=== PATIENT | male | born 1930 | race Caucasian/White ===

== ENCOUNTER 2019-02-24 10:46 | Outpatient (CLI) | payer MEDICARE | END 2019-02-24 10:47 | disposition home or self-care (01) | LOC: DTY/OP 10:46 | PROVIDERS: ATTEND Family Medicine | DX: E11.9 Type 2 diabetes mellitus without complications (principal) | CPT/HCPCS: 97802 ==

== ENCOUNTER 2019-06-07 16:20 | Inpatient (IN) | payer MEDICARE ==
--- NOTE | 2019-06-07 18:41 | PDOC.FPRHP ---
- History of Present Illness Chief Complaint: sob History of Present Illness: 88 y/o M with a pmhx of a fib, htn, cad s/p X3 vessel cabg, aortic stenosis s/p mechanical valve replacement, presenting to [facility] via transfer from [facility] for further treatment of a R sided post obstructive pneumonia 2/ 2 lung mass. Pt states he became very sob, having difficulty with exertion and lying flat about 6 days ago. He was instructed to come to the plumbing assembler for evaluation, which led to an echo, and cxr, leading to admission. Chest CT found a dense consolidation R upper lobe with mass-like fullness in R hilar region. worrisome for mass. post-obstructive volume loss versus pneumonitis. Aneurysmal dilation of descending aorta. Pt was transferred to [place] for higher level of care for pulmonary to perform bronchoscopy on Sunday. Pt denies current CP, and states his SOB has improved slightly since admission. - Allergies/Adverse Reactions Allergies Allergy/AdvReac Type Severity Reaction Status Date / Time No Known Allergies Allergy Verified 06/07/19 16:32 - Home Medications Medication Instructions Recorded Confirmed Type Amlodipine [Norvasc] 1 tab PO DAILY 06/07/19 06/07/19 History Aspirin [Briana Chewable Aspirin] 1 tab PO DAILY 06/07/19 06/07/19 History Furosemide [Lasix] 1 tab PO BID 06/07/19 06/07/19 History Levothyroxine Sodium 1 tab PO DAILY 06/07/19 06/07/19 History Lisinopril 1 tab PO DAILY 06/07/19 06/07/19 History Loratadine [Claritin] 10 mg PO DAILY 06/07/19 06/07/19 History Metoprolol Succinate [Toprol XL] 1 tab PO DAILY 06/07/19 06/07/19 History Omeprazole 1 tab PO DAILY 06/07/19 06/07/19 History Warfarin Sodium 1 tab PO DAILY 06/07/19 06/07/19 History - History PMHx: a fib, aortic stenosis s/p mechanical valve replacement on chronic warfarin therapy, htn, CAD s/p X3 vessel cabg. Hypothyroidism, previous [place], HLD , COPD PSHx: 2002 X3 vessel CABG, Aortic valve replacement, small bowel resection, aortic aneurysm stenting, cataract removal, appendectomy FHx: father: cad, [place]. Brother: heart disease Social: Smoked 2.5 ppd form many years. Quit in 1984. Quit drinking etoh heavily in 1972. Denies any illicit drug use. - Review of Systems General: denies: fever/chills, weight/appetite/sleep changes ENT: denies: nasal congestion Respiratory: reports: cough, shortness of breath, exercise intolerance Cardiovascular: reports: paroxysmal nocturnal dyspnea, orthopnea. denies: chest pain, palpitation Gastrointestinal: denies: nausea, vomiting, diarrhea, abdominal pain Skin: denies: rashes, lesions Musculoskeletal: denies: pain, swelling Neurological: denies: syncope, seizure - Vital signs BP: 136/76 HR: 97 RR: 20 Tmax: 97.7 Pox: 94% on 2L NC Wt: 182 kg - Physical Exam Constitutional: NAD, awake, alert and oriented, well developed HEENT: normocephalic and atraumatic, PERRLA, EOMI, conjunctiva clear, no scleral icterus, grossly normal vision, grossly normal hearing, MMM Neck: supple, FROM, trachea midline Chest: no-tender to palpation, no lesions Heart: pulses present -Heart: irregularly irregular heart rate and rhythm systolic murmur Lungs: no respiratory distress, no retractions -Lungs: diminished breath sounds over right mid lung to base, with crackles good air movement in L lung. Abdomen: soft, non-tender, bowel sounds present Musculoskeletal: normal structure, normal tone, ROM grossly normal Neurological: no focal deficit, normal sensation Skin: no rash/lesions, good turgor, capillary refill <2 seconds Heme/Lymphatic: no unusual bruising or bleeding, no purpura, no petechia Psychiatric: normal mood and affect, good judgment and insight, intact recent and remote memory FMR H&P: Results - Radiology Interpretation CT scan - chest Status: report reviewed by me (dense consolidation R upper lobe with mass-like fullness in R hilar region. worrisome for mass. post-obstructive volume loss versus pneumonitis. Aneurysmal dilation of descending aorta.) FMR H&P: A/P - Problem List (1) Pneumonia Current Visit: Yes Status: Acute Code(s): J18.9 - PNEUMONIA, UNSPECIFIED ORGANISM Qualifiers: Lung location: middle lobe of lung Comment: post obstructive pneumonia 2/2 R middle lobe lung mass (2) Mass of middle lobe of right lung Current Visit: Yes Status: Acute Code(s): R91.8 - OTHER NONSPECIFIC ABNORMAL FINDING OF LUNG FIELD (3) COPD (chronic obstructive pulmonary disease) Current Visit: Yes Status: Acute (4) A-fib Current Visit: Yes Status: Acute Code(s): I48.91 - UNSPECIFIED ATRIAL FIBRILLATION (5) Hx of myocardial infarction Current Visit: Yes Status: Acute Code(s): I25.2 - OLD MYOCARDIAL INFARCTION (6) HTN (hypertension) Current Visit: Yes Status: Acute Code(s): I10 - ESSENTIAL (PRIMARY) HYPERTENSION (7) HLD (hyperlipidemia) Current Visit: Yes Status: Acute Code(s): E78.5 - HYPERLIPIDEMIA, UNSPECIFIED (8) Hypothyroidism Current Visit: Yes Status: Acute Code(s): E03.9 - HYPOTHYROIDISM, UNSPECIFIED (9) On warfarin at home Current Visit: Yes Status: Acute Code(s): Z79.01 - SCHOOL TRAFFIC SUPERVISOR (CURRENT) USE OF ANTICOAGULANTS (10) CKD (chronic kidney disease), stage III Current Visit: Yes Status: Acute Code(s): N18.3 - CHRONIC KIDNEY DISEASE, STAGE 3 (MODERATE) - Plan 88 y/o M admitted for further pulmonary care for post obstructive pneumonia 2/2 R middle lobe lung mass 1. Post obstructive pneumonia 2/2 R middle lobe lung mass - Pul transferred care to [facility] for bronchoscopy scheduled Sunday. - Pt's warfarin held and placed on heparin drip for procedure and capabilities to be turned off pre-procedure. - continue rocephin and azithro 2. a fib - pt will be on heparin drip until post procedure - continue home meds 3. Aortic stenosis s/p Mechanical valve replacement - continue heparin drip 4. HTN - continue home medications 5. HLD - continue home medications 6. Hypothyroidism - continue levothyroxine 7. CAD s/p X3 vessel cabg - continue home medications 8. COPD - continue home meds - duonebs Q4H prn code status: full code diet: HH dvt ppx: heparin drip dispo: stable, inpatient for pulmonary to bronch and treat post-obstructive pneumonia FMR H&P: Upper Level - Pertinent history 88 yo M with hx of CAD and a 40+ pack year smoking hx here as a transfer from the [facility]. He was initially admitted for a post obstructive PNA secondary to likely R sided mass. He has been treated with rocephin IV daily there and has had minimal O2 requirement. He was seen by pulm who opted to transfer here for a planned bronc on Sunday. PMHx CAD Aortic valve stenosis s/p repair Afib HTN Hypothyroid GERD Surgical Hx CABG x3 Aortic valve replacement, mechanical Social Hx 40+ pack year smoking, No etoh or drugs - Pertinent findings See internal consultant note for full ROS, PE, vitals, and labs ROS General denies fever or chills CV Denies CP, palpitations or chest pressure Resp Complains of SOB and cough GI Denies n/v/d/c or abdominal pain denies increased frequency or dysuria Neuro denies numbness or weakness PE General A&O x4, NAD HEENT NCAT CV irregularly irregular, 2/6 systolic Resp Rhonchi on R, no distress Abd non tender, no distension, normal BS Extremities no edema, equal pedal pulses Neuro CN II-XII intact - Plan Date/Time: 06/07/191839 I, Tom La, DO, have evaluated this patient and agree with findings/plan as outlined by internal consultant resident. Pertinent changes/additions are listed here. 1.Post obstructive PNA - Given hx it seems likely that this is related to a mass. -Admit to medical and consult pulm for bronch -Continue IV abx 2.Afib - Rate controlled -Continue heparin, trend INR, hold warfarin for bronch 3.Hypothyroid -Home meds 4.HTN -Home meds See internal consultant portion for management of other chronic illness PPx heparin Diet HH, NPO at midnight Sunday night Code Full Dispo: pt is stable and in good condition now, but likely poor fpc prognosis. Would expect hospitalization of greater than 48 hours Addendum - Attending - Attending Attestation Date/Time: 06/07/191840 I personally evaluated the patient and discussed the management with Dr. Son/ Abhinav I agree with the History, Examination, Assessment and Plan documented above with any addition or exceptions noted below. 88 yo male accepted in transfer from was admitted with consolidated PNA found with Mass on CT and transferred for planned bronchoscopy per Dr Brito Sunday. Patient s/p mechanical AVR and 3V CABG [address] Steiner. Patient transitioned off coumadin to heparin drip for the planned procedure. Have accepted in transfer and Pulmonary to consult.
[2019-06-07] MEDS ORDERED: Heparin 10,000 UNITS/ 10 ML VIAL SLOW IVP SCH (20:15)
[2019-06-07 20:54] LABS: Hemoglobin 11.1 g/dL (14.0-18.0); Platelet Count 274 thou/uL (130-400)
[2019-06-07] MEDS: cefTRIAXone\\ROCEPHIN 2 GM in Sodium Chloride 0.9% 100 ML IVPB SCH (21:16)
[2019-06-07] MEDS: Furosemide 40 MG TAB PO SCH (21:16)
[2019-06-07] MEDS: Heparin 25,000 units/D5W 500 ML IVPB SCH (21:27)
[2019-06-07] MEDS ORDERED: Azithromycin 250 MG in Sodium Chloride 0.9% 250 ML 250 ML IVPB SCH (22:00)
[2019-06-08 05:19] LABS: #Basophils 0.1 thou/uL (0.0-0.2); #Eosinphils 0.4 thou/uL (0.0-0.7); #Lymphocytes 2.3 thou/uL (1.20-3.40); #Neutrophils 5.3 thou/uL (1.40-6.50); %Basophils 0.8 % (0.0-1.0); %Eosinophils 4.7 % (0.0-10.0); %Lymphocytes 25.1 % (21.0-51.0); %Neutrophils 58.4 % (42.0-75.0); Hemoglobin 10.9 g/dL (14.0-18.0); Mean Corpuscular HGB CONC 29.1 g/dL (32.0-36.0); Mean Corpuscular Hemoglobin 21.3 pg (27.0-31.0); Mean Corpuscular Volume 73.2 fL (78.0-98.0); Mean Platelet Volume 9.2 fL (7.4-10.4); Platelet Count 273 thou/uL (130-400); RBC Distribution Width 15.9 % (11.5-14.5); Red Blood Cell (RBC) Count 5.12 mill/uL (4.70-6.10)
[2019-06-08] MEDS: Levothyroxine Sodium 75 MCG TAB PO SCH (05:42)
[2019-06-08 05:43] LABS: ALT (SGPT) 25 U/L (8-55); AST (SGOT) 32 U/L (5-34); Albumin 3.4 g/dL (3.4-4.8); Alkaline Phosphatase 144 U/L (40-110); Anion Gap 15 mmol/L (10-20); BUN (Urea Nitrogen) 12 mg/dL (8.4-25.7); Bilirubin, Total 0.4 mg/dL (0.2-1.2); Calc. Creatinine Clearance 67 mL/min (70-130); Calcium 8.7 mg/dL (7.8-10.44); Carbon Dioxide 25 mmol/L (23-31); Chloride 103 mmol/L (98-107); Estimated GFR-MDRD 74; Glucose 116 mg/dL (83-110); Potassium 3.9 mmol/L (3.5-5.1); Protein, Total 7.4 g/dL (5.8-8.1); Sodium 139 mmol/L (136-145)
--- NOTE | 2019-06-08 06:03 | PDOC.FM ---
- Subjective Subjective: no acute overnight events Pt c/o mild abdominal pain. Denies N/V/D. Denies CP. - Objective MAR Reviewed: Yes Vital Signs & Weight: Vital Signs (12 hours) Temp Pulse Resp BP Pulse Ox 06/08/19 04:14 98.3 F 114 H 20 158/71 H 92 L 06/08/19 01:53 95 24 H 98 06/07/19 23:33 97.9 F 98 20 142/68 H 95 06/07/19 20:20 93 L 06/07/19 19:37 97.7 F 100 18 153/78 H 93 L Weight Weight 85.275 kg I&O: 06/06/19 06/07/19 06/08/19 06:59 06:59 06:59 Intake Total 740 Output Total 750 Balance -10 Result Diagrams: 06/08/19 04:26 06/08/19 04:26 Phys Exam - Physical Examination Constitutional: NAD HEENT: moist MMs, sclera anicteric Neck: no nodes, supple Respiratory: wheezing present Cardiovascular: irregular systolic murmur Gastrointestinal: soft, non-tender, no distention, positive bowel sounds Musculoskeletal: no edema, pulses present Neurological: non-focal, moves all 4 limbs Psychiatric: normal affect, A&O x 3 Skin: no rash, cap refill <2 seconds Dx/Plan (1) Pneumonia Code(s): J18.9 - PNEUMONIA, UNSPECIFIED ORGANISM Status: Acute Qualifiers: Lung location: middle lobe of lung (2) Mass of middle lobe of right lung Code(s): R91.8 - OTHER NONSPECIFIC ABNORMAL FINDING OF LUNG FIELD Status: Acute (3) COPD (chronic obstructive pulmonary disease) Status: Acute (4) A-fib Code(s): I48.91 - UNSPECIFIED ATRIAL FIBRILLATION Status: Acute (5) Hx of myocardial infarction Code(s): I25.2 - OLD MYOCARDIAL INFARCTION Status: Acute (6) HTN (hypertension) Code(s): I10 - ESSENTIAL (PRIMARY) HYPERTENSION Status: Acute (7) HLD (hyperlipidemia) Code(s): E78.5 - HYPERLIPIDEMIA, UNSPECIFIED Status: Acute (8) Hypothyroidism Code(s): E03.9 - HYPOTHYROIDISM, UNSPECIFIED Status: Acute (9) On warfarin at home Code(s): Z79.01 - PENITENTIARY (CURRENT) USE OF ANTICOAGULANTS Status: Acute (10) CKD (chronic kidney disease), stage III Code(s): N18.3 - CHRONIC KIDNEY DISEASE, STAGE 3 (MODERATE) Status: Acute - Plan Plan: 88 y/o M admitted for further pulmonary care for post obstructive pneumonia 2/2 R middle lobe lung mass 1. Post obstructive pneumonia 2/2 R middle lobe lung mass - Pul transferred care to [facility] for bronchoscopy scheduled Sunday. - Pt's warfarin held and placed on heparin drip for procedure and capabilities to be turned off pre-procedure. - continue rocephin and azithro 2. a fib - pt will be on heparin drip until post procedure - continue home meds 3. Aortic stenosis s/p Mechanical valve replacement - continue heparin drip 4. HTN - continue home medications 5. HLD - continue home medications 6. Hypothyroidism - continue levothyroxine 7. CAD s/p X3 vessel cabg - continue home medications 8. COPD - continue home meds - duonebs Q4H prn code status: full code diet: HH dvt ppx: heparin drip dispo: stable, inpatient for pulmonary to bronch and treat post-obstructive pneumonia Addendum - Attending - Attending Attestation Date/Time: 06/08/19 [id number] I personally evaluated the patient and discussed the management with Dr. Munoz I agree with the History, Examination, Assessment and Plan documented above with any addition or exceptions noted below. Patient medications from transfer resumed for anticipated bronchoscopy tomorrow. Patient aware of care plan. Patient in no respiratory distress.
[2019-06-08] MEDS ORDERED: Non-Formulary Item 1 EACH (Omeprazole [Omeprazole] 1 TAB) PO SCH (09:00)
[2019-06-08] MEDS: Furosemide 40 MG TAB PO SCH ×2 (09:04→21:00)
[2019-06-08] MEDS: Amlodipine 10 MG TAB PO SCH (09:04)
[2019-06-08] MEDS: Aspirin Chewable 81 MG TAB PO SCH (09:04)
[2019-06-08] MEDS: Lisinopril 10 MG TAB PO SCH (09:04)
[2019-06-08] MEDS: Loratadine 10 MG TAB PO SCH (09:04)
--- NOTE | 2019-06-08 11:14 | CON ---
DATE OF CONSULTATION: HISTORY OF PRESENT ILLNESS: Cristo Lancaster is an 88-year-old gentleman, who was admitted to the [facility] with diagnosis of cough, congestion, yellow sputum, fever, and chills. X-ray and CAT scan show a right middle lung mass. He was then transferred here for ongoing evaluation and further the treatment and higher level of care. This morning, he is coughing up gross amount of pus, but denies any chest pain, chills, or sweats. PAST MEDICAL HISTORY: Otherwise, pertinent for COPD, atrial fibrillation, prosthetic valve, hypertension, hyperlipidemia, hypothyroidism, renal failure. HOME MEDICATIONS: Including; 1. Loratadine 10. 2. Omeprazole 20. 3. Synthroid 0.075. 4. Aspirin 81. 5. Atorvastatin 40. 6. Coumadin 3 mg. 7. Toprol-XL 50. PREVIOUS SURGERIES: Abdominal aortic aneurysm surgery, small bowel resection, appendix, cataract, aortic valve surgery. SOCIAL AND FAMILY HISTORY: Otherwise, unremarkable. Former smoker. ALLERGIES: NONE. REVIEW OF SYSTEMS: Otherwise negative. PHYSICAL EXAMINATION: VITAL SIGNS: Blood pressure 144/79, temperature 98, pulse 120, saturations 92% on 2 L. CHEST: Decreased breath sounds. No wheezing. CARDIAC: Normal S1 and S2. No gallops. ABDOMEN: No mass. LABORATORY DATA: White count 9,000, hemoglobin and hematocrit are 10 and 37, and platelet count is 273. Lytes are normal. IMPRESSION AND PLAN: 1. Right lung mass, rule out bronchogenic carcinoma. 2. Chronic obstructive pulmonary disease, atrial fibrillation, prosthetic valve. His Coumadin was withheld. He is on IV heparin, IV antibiotics, IV steroids, neb treatments. Dr. Brito has scheduled a bronchoscopy with biopsy in the next several days. Consultation note 70 minutes, 50% direct patient care. Job ID: [id number]
[2019-06-08] MEDS ORDERED: Lidocaine 4% PF 5 ML AMP NEB SCH (12:15)
[2019-06-08] MEDS: Sodium Chloride 0.9% 1,000 ML IV SCH (13:34)
[2019-06-08] MEDS: methylPREDNISolone Sod Succ 40 MG VIAL IVP SCH ×3 (13:34→23:41)
[2019-06-08] MEDS: cefTRIAXone\\ROCEPHIN 2 GM in Sodium Chloride 0.9% 100 ML IVPB SCH (20:43)
[2019-06-08] MEDS: Heparin 25,000 units/D5W 500 ML IVPB SCH (20:45)
[2019-06-08] MEDS: Atorvastatin Calcium 40 MG TAB PO SCH (21:00)
[2019-06-09 05:23] LABS: #Lymphocytes 0.7 thou/uL (1.20-3.40); #Monocytes 0.1 thou/uL (0.11-0.59); #Neutrophils 7.9 thou/uL (1.40-6.50); %Eosinophils 0.1 % (0.0-10.0); %Lymphocytes 7.9 % (21.0-51.0); %Monocytes 1.4 % (0.0-10.0); %Neutrophils 90.6 % (42.0-75.0); Hemoglobin 11.6 g/dL (14.0-18.0); Mean Corpuscular HGB CONC 29.8 g/dL (32.0-36.0); Mean Corpuscular Hemoglobin 21.5 pg (27.0-31.0); Mean Corpuscular Volume 72.3 fL (78.0-98.0); Mean Platelet Volume 9.4 fL (7.4-10.4); Platelet Count 291 thou/uL (130-400); White Blood Cell (WBC) Count 8.7 thou/uL (4.8-10.8)
[2019-06-09] MEDS: methylPREDNISolone Sod Succ 40 MG VIAL IVP SCH ×3 (05:33→18:45)
[2019-06-09 05:34] LABS: ALT (SGPT) 26 U/L (8-55); AST (SGOT) 26 U/L (5-34); Albumin 3.6 g/dL (3.4-4.8); Alkaline Phosphatase 143 U/L (40-110); Anion Gap 15 mmol/L (10-20); BUN (Urea Nitrogen) 12 mg/dL (8.4-25.7); Bilirubin, Total 0.5 mg/dL (0.2-1.2); Calc. Creatinine Clearance 61 mL/min (70-130); Calcium 9.4 mg/dL (7.8-10.44); Carbon Dioxide 24 mmol/L (23-31); Chloride 102 mmol/L (98-107); Estimated GFR-MDRD 68; Globulin 4.2 g/dL (2.4-3.5); Glucose 183 mg/dL (83-110); Potassium 3.8 mmol/L (3.5-5.1); Protein, Total 7.8 g/dL (5.8-8.1); Sodium 137 mmol/L (136-145)
[2019-06-09] MEDS: Levothyroxine Sodium 75 MCG TAB PO SCH (06:46)
[2019-06-09 07:49] LABS: INR-International Normal Ratio 1.3; Prothrombin Time 16.4 SEC (12.0-14.7)
[2019-06-09 07:50] LABS: PTT 34.3 SEC (22.9-36.1)
--- NOTE | 2019-06-09 09:22 | PDOC.FM ---
- Subjective Subjective: Pt doing well this morning. States productive cough still present with thick, dark brown mucus. Eagerly awaiting bronch this AM. Denies any fever/chills, CP, n/v. SOB stable. Ambulated yesterday well. Tolerating PO well yesterday, now NPO for bronch. Eager for discharge. - Objective MAR Reviewed: Yes Vital Signs & Weight: Vital Signs (12 hours) Temp Pulse Resp BP Pulse Ox 06/09/19 07:46 94 20 94 L 06/09/19 07:27 93 L 06/09/19 07:22 97.8 F 135 H 18 124/70 93 L 06/09/19 04:17 97.7 F 119 H 16 151/67 H 92 L 06/09/19 01:31 93 L 06/08/19 23:50 97.7 F 113 H 16 143/67 H 93 L 06/08/19 21:30 94 L Weight Weight 85.275 kg I&O: 06/08/19 06/09/19 06/10/19 06:59 06:59 06:59 Intake Total 740 1198 Output Total 750 Balance -10 1198 Result Diagrams: 06/09/19 04:51 06/09/19 04:51 Phys Exam - Physical Examination Constitutional: NAD (resting comfortably in bed, in good spirits) HEENT: moist MMs Neck: no nodes, supple Respiratory: no wheezing, no rales, no rhonchi, clear to auscultation bilateral Decreased aeration in RUL Cardiovascular: RRR, no significant murmur, no rub Gastrointestinal: soft, non-tender, no distention, positive bowel sounds Manuel-wraps in place for LE edema, improved per pt Neurological: non-focal Psychiatric: normal affect, A&O x 3 Dx/Plan (1) COPD (chronic obstructive pulmonary disease) Status: Acute (2) Mass of middle lobe of right lung Code(s): R91.8 - OTHER NONSPECIFIC ABNORMAL FINDING OF LUNG FIELD Status: Acute - Plan Plan: 88 y/o M admitted as transfer from [facility] for further pulmonary care for post obstructive pneumonia 2/2 R middle lobe lung mass #Post obstructive pneumonia 2/2 R middle lobe lung mass - Initially admitted to [facility] in [place], transferred for pulm care - Pulm consulted, apprec recs and assistance. Plan for bronch this AM. - cont Rocephin and levo, as well as methlypred #Afib - pt will be on heparin drip, will heparin window for procedure - will plan to restart warfarin after procedure - continue home meds #Aortic stenosis s/p Mechanical valve replacement - per above #HTN - continue home medications #HLD - continue home medications #Hypothyroidism - continue levothyroxine #CAD s/p X3 vessel CABG - continue home medications #COPD - continue home meds - duonebs Q4H prn - no home O2, will wean as tolerated #Anemia - Hb 11.6, MCV 72.3, RDW 16 - anemia chronic disease vs iron def vs malignancy - no s/s of acute blood loss - iron studies pending code: full diet: NPO for bronch IVF: HS @ 50cc/hr dvt ppx: heparin drip dispo: stable, inpatient for pulmonary to bronch and treat post-obstructive pneumonia. Dispo pending bronch results and pulm recs. Addendum - Attending - Attending Attestation Date/Time: 06/09/19 9928 I personally evaluated the patient and discussed the management with Dr. Kline I agree with the History, Examination, Assessment and Plan documented above with any addition or exceptions noted below. s/p bronch. Now in Afib with RVR on CCB drip. Continue to monitor. Adjust dosing as needed to keep HR < 110. Patient reports improved breathing with breathing treatments. Unable to get appropriate sample during bronch. Will have CT surg perform mediastinal bx in AM. Delvin
[2019-06-09] MEDS ORDERED: Lidocaine 2% Jelly 5 ML TUBE ONE (09:23)
[2019-06-09] MEDS ORDERED: Lidocaine 1% (PF) 30 ML VIAL ONE (09:23)
[2019-06-09] MEDS ORDERED: Ketamine 50 MG/ML (10ML VIAL) ONE (09:56)
[2019-06-09] MEDS ORDERED: Diltiazem HCl 125 MG, Admixture Fee 1 EACH in Sodium Chloride 0.9% 100 ML IVPB SCH (11:15)
[2019-06-09] MEDS: Furosemide 40 MG TAB PO SCH ×2 (12:00→20:47)
[2019-06-09] MEDS: Sodium Chloride 0.9% 1,000 ML IV SCH (12:00)
[2019-06-09] MEDS: Amlodipine 10 MG TAB PO SCH (12:00)
[2019-06-09] MEDS: Aspirin Chewable 81 MG TAB PO SCH (12:00)
[2019-06-09] MEDS: Lisinopril 10 MG TAB PO SCH (12:00)
[2019-06-09] MEDS: Loratadine 10 MG TAB PO SCH (12:01)
[2019-06-09] MEDS ORDERED: methylPREDNISolone Acetate 40 mg/ml Vial ONE (13:33)
[2019-06-09] MEDS ORDERED: Lidocaine 1% PF 5 ML VIAL ONE (14:01)
[2019-06-09] MEDS ORDERED: PROPOFOL 200 MG/20 ML VIAL ONE (14:01)
[2019-06-09] MEDS ORDERED: Rocuronium Bromide 10 MG/ML (10ML VIAL) ONE (14:01)
[2019-06-09] MEDS ORDERED: Esmolol 100 MG/10 ML VIAL ONE (14:01)
[2019-06-09] MEDS ORDERED: Ondansetron PF 4 MG/2 ML Vial ONE (14:01)
[2019-06-09] MEDS ORDERED: Succinylcholine Chloride 20 MG/ML 10 ml SYRINGE FS ONE (14:01)
[2019-06-09] MEDS ORDERED: Metoprolol Tartrate 5 MG/5 ML VIAL IVP SCH (17:45)
[2019-06-09] MEDS: Atorvastatin Calcium 40 MG TAB PO SCH (20:47)
[2019-06-09] MEDS: cefTRIAXone\\ROCEPHIN 2 GM in Sodium Chloride 0.9% 100 ML IVPB SCH (20:54)
--- NOTE | 2019-06-09 22:04 | CON ---
DATE OF CONSULTATION: HISTORY OF PRESENT ILLNESS: Cristo Lancaster is a pleasant year-old white male, who is admitted for further evaluation of shortness of breath and a lung mass. In October 2002, he was evaluated by Dr. Lucero and underwent aortic valve replacement with a #21 Top-[employer]at [employer] valve and CABG x3 with HART to the proximal LAD and a saphenous vein graft to the distal right coronary artery and saphenous vein graft to the distal obtuse marginal. He has been followed by Dr. Crow apparently since that time. He then went to see Dr. Crow on June 04 for evaluation of worsening dyspnea and orthopnea. Echocardiogram according to Dr. Crow's note revealed normal left ventricular systolic function and normal aortic valve function. Chest x-ray revealed right lobe consolidation. CT scan revealed right middle lobe mass/consolidation consistent with possible pneumonia or neoplasm. He has chronic atrial fibrillation and his Coumadin was stopped and he was bridged with intravenous heparin. Then today, he underwent bronchoscopy and had more significant rapid ventricular response with heart rates up to 150 per minute. He has been placed on a Cardizem drip and transferred to telemetry. He complains of baseline shortness of breath, but no chest discomfort. PAST MEDICAL HISTORY: Aortic stenosis and coronary artery disease, hypertension, chronic atrial fibrillation, hyperlipidemia, COPD, hypothyroidism. OPERATIONS: Mechanical aortic valve replacement, CABG x3 in October 2002, small bowel resection, aortic aneurysm stenting, cataract removal and appendectomy. SOCIAL HISTORY: He smoked 2-1/2 packs per day for approximately 40 years, but quit in 1984. He apparently was a heavy drinker until 1972 when he quit. FAMILY HISTORY: Father had myocardial infarction. REVIEW OF SYSTEMS: A 10-point review of systems is otherwise unremarkable. HOME MEDICATIONS: 1. Amlodipine 10 mg daily. 2. Aspirin 81 daily. 3. Atorvastatin 40 at bedtime. 4. Clonidine 0.1 b.i.d. 5. Furosemide 40 b.i.d. 6. Levothyroxine 75 mcg daily. 7. Lisinopril 10 mg daily. 8. Loratadine 10 mg at bedtime. 9. Metoprolol 50 XL q.a.m. 10. Omeprazole 20 daily. 11. Warfarin. ALLERGIES: NONE. PHYSICAL EXAMINATION: VITAL SIGNS: Blood pressure 173/76, pulse of 122 and irregularly irregular. HEENT: PERRL. NECK: Supple. CHEST: Reveals diminished breath sounds bilaterally. CARDIOVASCULAR: Examination S1 was normal. There is a prosthetic S2. There is a 2/6 systolic murmur. ABDOMEN: Normal bowel sounds without tenderness. EXTREMITIES: Revealed no clubbing, cyanosis, or edema. NEUROLOGIC: Grossly intact. SKIN: Warm and dry. LABORATORY DATA: EKG revealed atrial fibrillation with rapid ventricular response of 109 per minute, left axis deviation and inferior infarction. Hemoglobin 11.6, hematocrit 39.1, white count 8700, platelets 291,000. INR 1.3. Sodium 137, potassium 3.8, chloride 102, carbon dioxide 24, BUN 12, creatinine 1.04. IMPRESSION: 1. 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 2. Pneumonia. 3. Atrial fibrillation with fast ventricular response, chronic atrial fibrillation. 4. Status post aortic valve replacement with mechanical valve and CABG x3 in 2002. 5. Hypertension. 6. Hyperlipidemia. 7. Former smoker. 8. Positive family history. PLAN: The patient's blood pressure has been somewhat elevated at times. He will be given Lopressor 5 mg IV now and his dose will be increased to 100 mg q.a.m. Digoxin may certainly need to be added for better rate control, if this does not control his tachycardia. Heparin and Coumadin should be restarted, if it is felt safe by the clerk secretary after his bronchoscopy. Job ID: [id number]
[2019-06-10] MEDS: methylPREDNISolone Sod Succ 40 MG VIAL IVP SCH ×4 (01:06→17:01)
[2019-06-10] MEDS: Sodium Chloride 0.9% 1,000 ML IV SCH (05:56)
[2019-06-10] MEDS: Levothyroxine Sodium 75 MCG TAB PO SCH (05:56)
[2019-06-10] MEDS ORDERED: Fentanyl 100 MCG/2 ML VIAL ONE (06:33)
[2019-06-10] MEDS ORDERED: Ondansetron HCl/PF 4 MG/2 ML Vial IVP PRN (08:03)
--- NOTE | 2019-06-10 08:32 | PDOC.FM ---
- Subjective Subjective: Seen in PACU after surgery. Did not tolerate extubation well and currently on BiPap. Opens eyes spontaneously, nonverbal at this time. Otherwise tolerated procedure itself well without complications. Had continued Afib with RVR, up titrated cardizem gtt. - Objective MAR Reviewed: Yes Vital Signs & Weight: Vital Signs (12 hours) Temp Pulse Resp BP Pulse Ox 06/10/19 03:33 97.9 F 116 H 22 H 135/66 93 L 06/10/19 01:30 86 16 96 06/09/19 21:49 96 Weight Weight 85.275 kg I&O: 06/09/19 06/10/19 06/11/19 06:59 06:59 06:59 Intake Total 1198 135 300 Output Total 200 400 Balance 1198 -65 -100 Result Diagrams: 06/09/19 04:51 06/09/19 04:51 Phys Exam - Physical Examination Air hunger, on BiPap, opens eyes spontaenously. BiPap in place Neck: supple incision c/d/i Respiratory: no wheezing, no rales, no rhonchi, clear to auscultation bilateral Good aeration throughout Cardiovascular: no significant murmur, no rub Irregularly irregular, tachy Gastrointestinal: soft, non-tender, no distention, positive bowel sounds Musculoskeletal: no edema, pulses present Deviation from normal: opens eyes spontaneously, nods nead to questions, nonverbal on bipap Dx/Plan (1) COPD (chronic obstructive pulmonary disease) Status: Acute (2) Mass of middle lobe of right lung Code(s): R91.8 - OTHER NONSPECIFIC ABNORMAL FINDING OF LUNG FIELD Status: Acute (3) A-fib Code(s): I48.91 - UNSPECIFIED ATRIAL FIBRILLATION Status: Acute Qualifiers: Atrial fibrillation type: longstanding persistent Qualified Code(s): I48.11 - Longstanding persistent atrial fibrillation - Plan Plan: 88 y/o M admitted as transfer from [facility] for further pulmonary care for post obstructive pneumonia 2/2 R middle lobe lung mass #Post obstructive pneumonia 2/2 R middle lobe lung mass - Initially admitted to [facility] in [place], transferred for pulm care - Pulm consulted, apprec recs and assistance. Bronch on 06/09 unable to obtain biopsy specimen, rec mediastinoscopy, apprec recs and assistance - CV surg, Dr Steiner, consulted for mediastinoscopy with biopsy of mass this AM, apprec recs and assistance - cont Rocephin and levo, as well as methlypred #Afib with RVR - known h/o, had run of asxs afib with RVR, started on cardizem gtt - HR in low 100s overnight, RVR with HR 110-140 post-op - Cards, Dr Berger, consulted, rec IV lopressor with increased Toprol dose and possible addition of dig, and to transition back to warfarin when appropriate, apprec recs - Post-op increased to 15 Cardizem, will monitor - will restart heparin post procedure and transition to warfarin when CV surg clears - cont other home meds #Aortic stenosis s/p Mechanical valve replacement - per above #HTN - continue home medications #HLD - continue home medications #Hypothyroidism - continue levothyroxine #CAD s/p X3 vessel CABG - continue home medications #COPD - continue home meds - duonebs Q4H prn - no home O2, will wean as tolerated #Anemia of chronic disease vs malignancy - Hb 11.6, MCV 72.3, RDW 16, ferritin and TIBC WNL - no s/s of acute blood loss, will monitor code: full diet: NPO for mediastinoscopy IVF: NS @ 50cc/hr dvt ppx: SCDs to transition to heparin post-procedure Dispo: Mediastinoscopy today. On Bipap post-extubation. Will monitor in PACU. Will add dig if appropriate and transition from heparin to warfarin when appropriate. Pending Cards, Pulm, and CV surg recs. Addendum - Attending - Attending Attestation Date/Time: 06/10/19 5880 I personally evaluated the patient and discussed the management with Dr. Kline I agree with the History, Examination, Assessment and Plan documented above with any addition or exceptions noted below. Examined after mediastinoscopy in PACU. Rate 100s to 110s. Will attempt to convert to PO meds for rate control today. Restart anticoagulation per CV surg recs. Await path report. Likely needs 2-3 more days in hospital.
[2019-06-10] MEDS ORDERED: Albuterol Sulfate HFA (OR ONLY) ONE (08:47)
[2019-06-10] MEDS ORDERED: SUGAMMADEX SODIUM 200 MG/2 ML VIAL ONE (08:55)
[2019-06-10] MEDS ORDERED: Furosemide 20 MG/2 ML VIAL ONE (09:17)
[2019-06-10] MEDS ORDERED: Ondansetron PF 4 MG/2 ML Vial ONE (09:44)
[2019-06-10] MEDS ORDERED: Glycopyrrolate 0.2 MG/ML 5 ML SYRINGE ONE (09:44)
[2019-06-10] MEDS ORDERED: PROPOFOL 200 MG/20 ML VIAL ONE (09:44)
[2019-06-10] MEDS ORDERED: Rocuronium Bromide 10 MG/ML (10ML VIAL) ONE (09:44)
[2019-06-10] MEDS ORDERED: Dexamethasone 20 MG/5 ML VIAL ONE (09:44)
[2019-06-10] MEDS ORDERED: Lidocaine 1% PF 5 ML VIAL ONE (09:44)
[2019-06-10] MEDS ORDERED: Ketorolac Tromethamine 30 MG/ML VIAL ONE (09:44)
[2019-06-10] MEDS: Loratadine 10 MG TAB PO SCH (11:06)
[2019-06-10] MEDS: Aspirin Chewable 81 MG TAB PO SCH (11:06)
[2019-06-10] MEDS: Lisinopril 10 MG TAB PO SCH (11:07)
[2019-06-10] MEDS: Furosemide 40 MG TAB PO SCH ×2 (11:07→21:22)
[2019-06-10] MEDS: Amlodipine 10 MG TAB PO SCH (11:08)
--- NOTE | 2019-06-10 11:11 | OP ---
DATE OF PROCEDURE: 06/09/2019 PROCEDURE PERFORMED: Bronchoscopy. DESCRIPTION OF PROCEDURE: He was taken to Endoscopy. He was intubated by Anesthesia. Once he was adequately sedated, the bronchoscope was introduced. Surprisingly, his entire right lung tracheobronchial tree was full of blood. This was suctioned and lavaged until clear. I could not enter his apical segment of his right upper lobe as it appeared to be deviated upward and medially. His anterior and posterior segments of his right upper lobe, right middle lobe, lateral medial segments, and all segments of the lower lobe were entered, washed out, and inspected. No endobronchial lesions were seen to explain the blood. There were no lesions in his left tracheobronchial tree. He will probably need mediastinoscopy to make a tissue diagnosis. I did do brushings in all of his segments of his middle and lower lobe, but this will not yield enough tissue for immunology testing even if we find that he has malignancy. Tolerated procedure well. His atrial fibrillation rate picked up after the procedure while he was in the PACU. Anesthesiologist consulted Cardiology. He was transferred to the telemetry unit for monitoring. He is followed by Dr. Crow and is chronically in atrial fibrillation. Tomorrow, we should simplify his antimicrobial therapy. Job ID: [id number]
[2019-06-10] MEDS ORDERED: Ibuprofen 200 MG TAB PO PRN (12:37)
[2019-06-10] MEDS ORDERED: Acetaminophen 500 MG TAB PO PRN (12:37)
[2019-06-10] MEDS: Warfarin Sodium 2.5 MG TAB PO SCH (16:58)
[2019-06-10 17:25] LABS: Hemoglobin 10.4 g/dL (14.0-18.0); Platelet Count 294 thou/uL (130-400)
[2019-06-10] MEDS ORDERED: Diltiazem HCl 125 MG, Admixture Fee 1 EACH in Sodium Chloride 0.9% 100 ML IVPB SCH (18:45)
[2019-06-10] MEDS: Atorvastatin Calcium 40 MG TAB PO SCH (21:22)
--- NOTE | 2019-06-10 23:25 | PRG ---
DATE OF SERVICE: 06/10/2019 SUBJECTIVE: Mr. 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 I walked in the room. He had no idea who I was. OBJECTIVE: VITAL SIGNS: He is afebrile. Heart rate is 94, respiratory rate is in the teens, oximetry is 92%, blood pressure 135/65. LUNGS: Clear. HEART: Regular rhythm. ABDOMEN: Soft. He wants to be sure he gets a nebulizer when he gets home. We need to consider sending him home tomorrow. 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 We will tomorrow see him (the daughter is always at the bedside) and to discuss followup with me. I will wait at least a couple of weeks to have all the immuno-markers back. We will get him a nebulizer for home, so he can do breathing treatments. Probably keep him on low-dose steroids when he gets out of the hospital. I think given that he likely will be developing progressive dementia here over the next year or two, management with a minimalist comfort care approach would be reasonable. I will discuss with the other physicians involved in his care. We will stop his IV antibiotics, stop his IV steroids. The worst thing that could happen in this gentleman would be a C diff episode. Started back on his warfarin today. I will treat him with Ceftin for a few days once he is discharged and perhaps 20 mg of prednisone. I met with the daughter and answered all of her questions today. Job ID: [id number]
[2019-06-11 04:19] LABS: Hemoglobin 10.3 g/dL (14.0-18.0); Platelet Count 260 thou/uL (130-400)
[2019-06-11 04:23] LABS: INR-International Normal Ratio 1.4; Prothrombin Time 17.5 SEC (12.0-14.7)
[2019-06-11] MEDS: Levothyroxine Sodium 75 MCG TAB PO SCH (05:54)
--- NOTE | 2019-06-11 07:24 | PDOC.FM ---
- Subjective Subjective: Doing well this morning. Alert and Oriented. No acute events overnight. SOB improved, still with cough. Denies CP, n/v, fever/chills. States he is eager for discharge and wanting to go home today. Ambulated some yesterday. Tolerating PO well. - Objective MAR Reviewed: Yes Vital Signs & Weight: Vital Signs (12 hours) Temp Pulse Resp BP Pulse Ox 06/11/19 03:20 98.0 F 105 H 16 138/64 91 L 06/11/19 02:02 93 L 06/10/19 21:31 81 16 95 06/10/19 20:00 97.8 F 94 18 135/65 92 L Weight Weight 85.275 kg I&O: 06/10/19 06/11/19 06/12/19 06:59 06:59 06:59 Intake Total 135 1460 Output Total 200 800 Balance -65 660 Result Diagrams: 06/11/19 03:36 06/09/19 04:51 EKG Reviewed by me: Yes (Tele: Afib, rate-controlled) Phys Exam - Physical Examination Constitutional: NAD (resting comfortably) HEENT: moist MMs Neck: supple Respiratory: no wheezing, no rales, no rhonchi, clear to auscultation bilateral Mech valve click. Irregurally irregular. Gastrointestinal: soft, non-tender, no distention, positive bowel sounds Musculoskeletal: no edema, pulses present Neurological: non-focal Psychiatric: normal affect Deviation from normal: A/O x3, confused with some details but otherwise able to converse well. Dx/Plan (1) COPD (chronic obstructive pulmonary disease) Status: Acute (2) Mass of middle lobe of right lung Code(s): R91.8 - OTHER NONSPECIFIC ABNORMAL FINDING OF LUNG FIELD Status: Acute (3) A-fib Code(s): I48.91 - UNSPECIFIED ATRIAL FIBRILLATION Status: Acute Qualifiers: Atrial fibrillation type: longstanding persistent Qualified Code(s): I48.11 - Longstanding persistent atrial fibrillation - Plan Plan: 88 y/o M admitted as transfer from [facility] for further pulmonary care for post obstructive pneumonia 2/2 R middle lobe lung mass #Post obstructive pneumonia 2/2 R middle lobe lung mass, non-small cell carcinoma - Initially admitted to [facility] in [place], transferred for pulm care - Pulm consulted, apprec recs and assistance. Bronch on 06/09 unable to obtain biopsy specimen, rec mediastinoscopy, apprec recs and assistance - CV surg, Dr Steiner, consulted for mediastinoscopy with biopsy of mass 06/10, apprec recs and assistance - Frozen sections of biopsy demonstrated non-small cell cancer - Will have discussion with specialists and family for goals of care and appropriate f/u as OP - Pulm changed abx to ceftin and cont 20mg prednisone, will monitor resp status #Afib with RVR, now rate-controlled - known h/o, had run of asxs afib with RVR post-op, started on cardizem gtt, now transitioned to PO meds - HR in low 80-100 overnight - Cards, Dr Berger, consulted, increased Toprol dose and possible addition of dig, and transitioned back to warfarin, apprec recs - cont other home meds and monitor #Aortic stenosis s/p Mechanical valve replacement - per above - restarted warfarin, will need OP f/u and monitoring #HTN - continue home medications #HLD - continue home medications #Hypothyroidism - continue levothyroxine #CAD s/p X3 vessel CABG - continue home medications #COPD - continue home meds - duonebs Q4H prn, will need home neb - eval for home O2 as pt still requiring 3L to sat low-90s #Anemia of chronic disease vs malignancy - Hb 11.6, MCV 72.3, RDW 16, ferritin and TIBC WNL - no s/s of acute blood loss, will monitor code: full diet: HH IVF: SL dvt ppx: Warfarin Dispo: Path of lung mass is non-small cell lung cancer. Rate-controlled afib. Restarted home warfarin. Discuss goals of care, moving towards discharge when clinically stable and pending specialists recs. Addendum - Attending - Attending Attestation Date/Time: 06/11/19 5602 I personally evaluated the patient and discussed the management with Dr. Aneudy Kline I agree with the History, Examination, Assessment and Plan documented above with any addition or exceptions noted below. Report preliminary path NSCL carcinoma Patient restarted on Coumadin requiring oxygen at present. Heart rate controlled currently . Did not discuss pathology with Patient/family pending further rec candidacy any surgery, chemoradiation, targeted immunotherapy etc.. Patient anxious for discharge will await recommendation from Pulmonary and Cardiology for d/c to home. Patient home monitors INR arrangement prn home oxygen and nebulizer.
[2019-06-11] MEDS: Cefuroxime Axetil 250 MG TAB PO SCH ×2 (08:22→22:06)
[2019-06-11] MEDS: Aspirin Chewable 81 MG TAB PO SCH (08:22)
[2019-06-11] MEDS: Amlodipine 10 MG TAB PO SCH (08:22)
[2019-06-11] MEDS: Furosemide 40 MG TAB PO SCH ×2 (08:22→22:06)
[2019-06-11] MEDS: predniSONE 20 MG TAB PO SCH (08:22)
[2019-06-11] MEDS: Loratadine 10 MG TAB PO SCH (08:23)
[2019-06-11] MEDS: Lisinopril 10 MG TAB PO SCH (08:23)
--- NOTE | 2019-06-11 08:24 | OP ---
DATE OF PROCEDURE: 06/10/2019 PREOPERATIVE DIAGNOSIS: Right lung mass with enlarged mediastinal nodes. PROCEDURE PERFORMED: Mediastinoscopy with biopsy. ANESTHESIA: General. EBL: 50 to 100 mL. DESCRIPTION OF PROCEDURE: After adequate anesthesia had been obtained, a roll was placed on the shoulders, head supported on a pillow, the patient prepped and draped. Incision was made in the suprasternal notch and carried down in the midline to the trachea, where blunt dissection was carried into the trachea. The scope was then inserted and with blunt dissection using the cautery, incision was carried down into the mediastinum. Following that, tumor was identified and aspirated with no blood. Multiple biopsies were obtained primarily of necrotic specimen. This area was then packed due to oozing and frozen section returned as non-small cell carcinoma. After packing again with Surgicel, bleeding was stopped and the scope was slowly pulled back, making sure there was no other bleeding sites. The wound was then closed in layers. The patient is to be taken to the recovery room. Job ID: [id number]
[2019-06-11] MEDS: cefTRIAXone\\ROCEPHIN 2 GM in Sodium Chloride 0.9% 100 ML IVPB SCH (08:27)
--- NOTE | 2019-06-11 13:39 | EKG ---
Test Reason : Blood Pressure : / mmHG Vent. 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
[2019-06-11] MEDS: Warfarin Sodium 2.5 MG TAB PO SCH (16:13)
--- NOTE | 2019-06-11 16:57 | PRG ---
DATE OF SERVICE: 06/11/2019 SUBJECTIVE: Mr. Lancaster is doing well. He has no complaints. OBJECTIVE: VITAL SIGNS: He is afebrile, heart rate is 97, respiratory rate 16, oximetry is 93% on 2 L, and blood pressure 129/70. LUNGS: Clear. HEART: Regular rate and rhythm. ABDOMEN: Soft. IMPRESSION: 1. Non-small cell carcinoma. Lymph node biopsies pending. Bronchial brushings and washings did not show malignancy. This was not surprising. 2. Atrial fibrillation that is chronic with an increase in his ventricular response while he has been in the hospital. His medications have been adjusted by Dr. Kamara. 3. ? component of chronic obstructive pulmonary disease/reactive airways. He said he feels much better when he feels nebulizer treatments and actually should go home with nebulizer treatments with DuoNeb to use 3 to 4 times a day. He may need oxygen at home. 4. His antimicrobial therapy is now p.o. 5. Given the high dose of metoprolol being used, we will need to watch him for clinical bronchospasm with this dose of metoprolol. 6. He is back on his warfarin home dose. His INR is 1.4 today. He should gradually become anticoagulated with his home dose. 7. We will need to wait for the immuno-markers to decide what type of therapies optimum. I have asked the daughter to call me in a week, so I can check for the immunologic markers to see if he is a candidate for immunotherapy. Either way, I will make a referral to the oncologist in 1 to 2 weeks. Job ID: [id number]
[2019-06-11] MEDS: Atorvastatin Calcium 40 MG TAB PO SCH (22:06)
[2019-06-12 05:00] LABS: INR-International Normal Ratio 1.5; Prothrombin Time 18.4 SEC (12.0-14.7)
[2019-06-12] MEDS: Levothyroxine Sodium 75 MCG TAB PO SCH (06:01)
--- NOTE | 2019-06-12 06:47 | PDOC.FM ---
- Subjective Subjective: Doing well this morning, no acute events overnight. Remembers meeting with specialists yesterday but unsure of what they said. Did not initially recognize me this morning. Denies any CP, fever/chills, n/v. Ambulating well. Voiding and stooling. SOB improved. Still with cough. Very eager for discharge home this AM. - Objective MAR Reviewed: Yes Vital Signs & Weight: Vital Signs (12 hours) Temp Pulse Resp BP BP Pulse Ox 06/12/19 03:54 97.9 F 114 H 20 109/69 92 L 06/12/19 02:55 114 H 18 94 L 06/11/19 22:12 101 H 16 93 L 06/11/19 20:00 97.9 F 95 18 136/72 94 L 06/11/19 19:58 102 H 18 92 L Weight Weight 85.275 kg I&O: 06/10/19 06/11/19 06/12/19 06:59 06:59 06:59 Intake Total 135 1460 960 Output Total 200 800 Balance -65 660 960 Result Diagrams: 06/11/19 03:36 06/09/19 04:51 EKG Reviewed by me: Yes (Tele: Afib rate 90-110) Phys Exam - Physical Examination Constitutional: NAD (resting comfortably in chair, A/O x2, able to reorient, poor memory) HEENT: moist MMs Neck: supple Respiratory: no wheezing, no rales, no rhonchi, clear to auscultation bilateral decreased breath sounds throughout Cardiovascular: no rub Irregurally irregular, mechanical valve click, tachy Gastrointestinal: soft, non-tender, no distention, positive bowel sounds 1+ pitting BL, chronic in natrure Neurological: non-focal, moves all 4 limbs Psychiatric: normal affect Deviation from normal: A/O x2, poor memory of events, can reorient Dx/Plan (1) COPD (chronic obstructive pulmonary disease) Status: Acute (2) Mass of middle lobe of right lung Code(s): R91.8 - OTHER NONSPECIFIC ABNORMAL FINDING OF LUNG FIELD Status: Acute (3) A-fib Code(s): I48.91 - UNSPECIFIED ATRIAL FIBRILLATION Status: Acute Qualifiers: Atrial fibrillation type: longstanding persistent Qualified Code(s): I48.11 - Longstanding persistent atrial fibrillation - Plan Plan: 88 y/o M admitted as transfer from [facility] for further pulmonary care for post obstructive pneumonia 2/2 R middle lobe lung mass #Post obstructive pneumonia 2/2 R middle lobe lung mass, non-small cell carcinoma - Initially admitted to [facility] in [place], transferred for pulm care - Pulm consulted, apprec recs and assistance. Bronch on 06/09 unable to obtain biopsy specimen, rec mediastinoscopy. Will cont abx and steroids. Will f/u in 1wk for immunochemistry results, apprec recs and assistance - CV surg, Dr Steiner, consulted for mediastinoscopy with biopsy of mass 06/10, apprec recs and assistance - Frozen sections of biopsy demonstrated non-small cell cancer - F/u with Onc and Pulm as OP - Approved for home O2 - Rx for neb and duonebs at home prn #Afib with RVR - known h/o, had run of asxs afib with RVR post-op, started on cardizem gtt, now transitioned to PO meds - HR in low 90-110 overnight - Cards, Dr Kamara, consulted, increased Toprol dose to 200mg daily, possible addition of dig, and transitioned back to warfarin with lovenox bridge, apprec recs - cont other home meds and monitor - Will need cont cardiac OP f/u and INR checks. Pt has home INR machine and knows to call cards for warfarin dose adjustments. Will need close f/u. #Aortic stenosis s/p Mechanical valve replacement - per above - restarted warfarin, Inr 1.5, will need OP f/u and monitoring #HTN - continue home medications #HLD - continue home medications #Hypothyroidism - continue levothyroxine #CAD s/p X3 vessel CABG - continue home medications #COPD - continue home meds - duonebs Q4H prn, rx for home neb - Still on 2L NC, approved for home O2 #Anemia of chronic disease - Hb 11.6, MCV 72.3, RDW 16, ferritin and TIBC WNL - no s/s of acute blood loss, will monitor code: full diet: HH IVF: SL dvt ppx: Warfarin Bridge with Th lovenox Dispo: Path of lung mass is non-small cell lung cancer. Rate-controlled afib. Restarted home warfarin. Discuss goals of care, moving towards discharge when clinically stable and pending specialists recs. Will need cont OP f/u. Anticipate discharge todya. Addendum - Attending - Attending Attestation Date/Time: 06/12/19 4326 I personally evaluated the patient and discussed the management with Dr. Donavan Kline I agree with the History, Examination, Assessment and Plan documented above with any addition or exceptions noted below. Patient to bridge to coumadin with lovenox digoxin added for improved rate control. OK from FM standpoint to dismiss home will f/u with Dr Brito for any further recommendations treatment NSCL carcinoma. home oxygen and nebulizer to be arranged.
[2019-06-12] MEDS ORDERED: Digoxin 0.5 MG/2 ML AMP SLOW IVP SCH (08:45)
[2019-06-12] MEDS ORDERED: Digoxin 0.125 MG TAB PO SCH (09:00)
[2019-06-12] MEDS ORDERED: Enoxaparin Sodium 80 MG/0.8 ML SYRINGE SC SCH (09:00)
[2019-06-12] MEDS ORDERED: Sodium Chloride 0.9% 10 ML ONE (09:15)
[2019-06-12] MEDS: predniSONE 20 MG TAB PO SCH (09:24)
[2019-06-12] MEDS: Furosemide 40 MG TAB PO SCH ×2 (09:24→15:13)
[2019-06-12] MEDS: Lisinopril 10 MG TAB PO SCH (09:25)
[2019-06-12] MEDS: Loratadine 10 MG TAB PO SCH (09:25)
[2019-06-12] MEDS: Cefuroxime Axetil 250 MG TAB PO SCH (09:25)
[2019-06-12] MEDS: Amlodipine 10 MG TAB PO SCH (09:25)
[2019-06-12] MEDS: Aspirin Chewable 81 MG TAB PO SCH (09:27)
[2019-06-12 11:48] VITALS: BP 119/84; TEMP 99.1
[2019-06-13 09:11] LABS: Fungus Stain Final report (.)
--- NOTE | 2019-06-14 14:23 | DIS ---
DATE OF ADMISSION: 06/07/2019 DATE OF DISCHARGE: 06/12/2019 RESIDENT: Dr. Diomedes Kline. ADMITTING ATTENDING: Dr. Alpesh Turcios. DISCHARGE ATTENDING: Dr. Alpesh Turcios CONSULTS: 1. Pulmonology, Dr. Brito. 2. CV Surgery, Dr. Steiner. 3. Cardiology, Dr. Kamara. PROCEDURES: 1. Bronchoscopy on 06/09/2019 with pulmonary washings. 2. Mediastinoscopy with biopsy on 06/10/2009. PRIMARY DIAGNOSES: 1. 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 2. Atrial fibrillation with RVR. SECONDARY DIAGNOSES: 1. Aortic stenosis, status post mechanical valve replacement. 2. Hypertension. 3. Hyperlipidemia. 4. Hypothyroidism. 5. Coronary artery disease, status post three-vessel coronary artery bypass grafting. 6. Chronic obstructive pulmonary disease. 7. Anemia of chronic disease. DISCHARGE MEDICATIONS: 1. Claritin 10 mg p.o. at bedtime. 2. Prilosec 20 mg p.o. daily. 3. Lisinopril 10 mg p.o. daily. 4. Levothyroxine 75 mcg p.o. daily. 5. Lasix 40 mg p.o. b.i.d. 6. Aspirin 81 mg p.o. daily. 7. Norvasc 10 mg p.o. daily. 8. Atorvastatin 40 mg p.o. at bedtime. 9. Ceftin 250 mg p.o. q.12 hours x5 days. 10. Digoxin 0.125 mg p.o. daily. 11. Lovenox 80 mg subcu b.i.d. x7 days or until INR is therapeutic. 12. Metoprolol succinate 200 mg p.o. daily. 13. Prednisone 20 mg p.o. q.a.m. x5 days. 14. Warfarin 2.5 mg p.o. at 1700 hours daily. 15. DuoNeb q.4 hours p.r.n. Discontinued medications; 1. Warfarin 3 mg p.o. daily. 2. Metoprolol succinate 50 mg one tablet p.o. daily. 3. Clonidine 0.1 mg p.o. b.i.d. HISTORY OF PRESENT ILLNESS AND HOSPITAL COURSE: The patient is an 88-year-old male, with history of atrial fibrillation, hypertension, CAD, aortic stenosis status post mechanical valve replacement, who presented as a transfer from [facility] to [facility] for further treatment of a right-sided postobstructive pneumonia secondary to a lung mass. The patient initially presented to [place] for shortness of breath, increased sputum production, he was instructed by his vice president risk management to come in for evaluation. An echo and chest x-ray were performed, and a CT demonstrated a dense right upper lobe mass in the hilar region, worrisome for cancer. Postobstructive volume loss versus pneumonitis was seen. The patient was then transferred to [place] for higher level of pulmonary care. Regarding his postobstructive pneumonia secondary to the right middle lobe lung mass, the patient was seen by Pulmonology, who performed a bronchoscopy on 06/09. However, they were unable to obtain a biopsy due to the mass being outside of the airway. Pulmonary washings were taken and did not show any organisms and had no growth to date. CV Surgery was then consulted for mediastinoscopy with biopsy of mass, which was performed on 06/10. Frozen sections of his biopsy demonstrated non-small cell cancer with final path and immunochemistries pending at the time of discharge. These results were discussed with the patient and family and they wished to not pursue to chemotherapy, but were interested in immunotherapy and are going to follow up with Dr. Brito as an outpatient for further discussions and referral to Oncology. The patient did continue to require oxygen throughout his hospitalization and was evaluated and found to desat into the 80s on room air and thus was approved for home O2 and this was arranged upon discharge. It was also determined that the patient would benefit from nebulizer treatments and was given a prescription for DuoNebs and a nebulizer machine for home. It was also determined that the patient would finish up the course of antibiotics for his postobstructive pneumonia and steroids for his mild COPD flare. At the time of discharge, the patient was saturating well on 2 L nasal cannula and had no increased work of breathing. He also had chronic cough that was productive as this is to be expected. The patient was able to ambulate, tolerating p.o. well, and doing otherwise near his baseline. After the bronchoscopy in the postoperative period, the patient went into atrial fibrillation with RVR. He was started on a Cardizem drip at 5 with a rate controlled. He was continued on this drip in between the bronchoscopy and mediastinoscopy. After the mediastinoscopy, the patient had an initial trial of BiPAP, but then was able to be weaned to 2 L. He had a worsening of his atrial fibrillation with RVR and his Cardizem had to be uptitrated to 15. Cardiology was consulted for recommendations. The patient's metoprolol dose was increased to 150 mg daily initially with his heart rate still in the 110 to 130 range and thus his metoprolol was increased to a dose of 200 mg daily. The patient again continued to have atrial fibrillation with RVR, thus he was given a loading dose of digoxin and started on digoxin with rate control of his atrial fibrillation. Thus, the patient was discharged on metoprolol 200 mg daily as well as digoxin for his atrial fibrillation. The patient's blood pressure remained stable and he remained asymptomatic throughout this entire time. It was instructed that they will need to follow up with their vice president risk management at [facility] for further evaluation of this and management, but was stable at the time of discharge. Regarding the patient's aortic stenosis with mechanical valve, he is on warfarin chronically for this. They have an INR machine at home to monitor this. Throughout the hospitalization, he was initially placed on a heparin drip. After his procedures, he was transitioned to therapeutic Lovenox. It was discussed with Cardiology that he would benefit from bridging back to warfarin as he has been off this for a little over a week. The patient was given Lovenox therapeutic prescription and started on his Coumadin. His INR was 1.5 at the time of discharge and he was taking his normal home dose of 2.5 mg daily. It was instructed that they would need to recheck an INR every other day and to call their vice president risk management for recommendations. During the meantime, they are to continue Lovenox therapeutic until therapeutic warfarin doses are reached. Regarding the patient's chronic medical conditions including hypertension, hyperlipidemia, hypothyroidism, coronary artery disease, and COPD, these were all managed with home medications and did not have any acute flares or worsening. The patient was discharged home on 2 L nasal cannula as previously discussed above. The patient was also found to have anemia of 11.6, this is stable and chronic in nature. Iron studies were within normal limits. It was determined that the patient was likely suffering from anemia of chronic disease. At the time of discharge, the patient was very eager for discharge and ready to go home. He was placed on observation throughout the stay. It was determined that the patient likely has some underlying dementia; however, this does wax and wane at time. The discharge plan was discussed with the daughter at bedside, who voiced agreement and understanding of the discharge plan, appropriate changes to medications and appropriate followup. All questions were answered appropriately and the patient was ambulating, tolerating p.o. well, and stable for discharge. DISCHARGE INSTRUCTIONS: 1. Location: Home. 2. Diet: Heart healthy. 3. Activity: As tolerated. FOLLOWUP: The patient should follow up with their primary care physician, Dr. Lawton on 06/18/2019 at 5 p.m. They should follow up with Dr. Crow, their vice president risk management on 06/23/2019, at 10:30 a.m., and should follow up with Dr. Brito on 06/18/2019. Job ID: [id number]
== END 2019-06-12 15:55 | disposition home health service (06) | DRG 166 ==
LOC: SJJU 16:20 → 2NO 06-09 15:55
PROVIDERS: ADMIT Family Medicine; ATTEND Internal Medicine Critical Care Medicine
PROC: 0B9D8ZZ Drainage of Right Middle Lung Lobe, Via Natural or Artificial Opening Endoscopic (ICD-10-PCS; 2019-06-09)
PROC: 0B9C8ZZ Drainage of Right Upper Lung Lobe, Via Natural or Artificial Opening Endoscopic (ICD-10-PCS; 2019-06-09)
PROC: 07B74ZX Excision of Thorax Lymphatic, Percutaneous Endoscopic Approach, Diagnostic (ICD-10-PCS; principal; 2019-06-10)
DX: C34.91 Malignant neoplasm of unspecified part of right bronchus or lung (principal); J18.8 Other pneumonia, unspecified organism; I48.20 Chronic atrial fibrillation, unspecified; J44.0 Chronic obstructive pulmonary disease with (acute) lower respiratory infection; E03.9 Hypothyroidism, unspecified; E78.5 Hyperlipidemia, unspecified; N18.3 Chronic kidney disease, stage 3 (moderate); I12.9 Hypertensive chronic kidney disease with stage 1 through stage 4 chronic kidney disease, or unspecified chronic kidney disease; K21.9 Gastro-esophageal reflux disease without esophagitis; D63.1 Anemia in chronic kidney disease; F03.90 Unspecified dementia, unspecified severity, without behavioral disturbance, psychotic disturbance, mood disturbance, and anxiety; I25.10 Atherosclerotic heart disease of native coronary artery without angina pectoris; Z95.1 Presence of aortocoronary bypass graft; I25.2 Old myocardial infarction; Z79.01 Long term (current) use of anticoagulants; Z95.2 Presence of prosthetic heart valve; Z90.49 Acquired absence of other specified parts of digestive tract; Z87.891 Personal history of nicotine dependence
CPT/HCPCS: 36415; 80048; 80053; 82728; 83550; 83880; 85014; 85018; 85025; 85049; 85610; 85730; 87070; 87102; 87116; 87205; 87206; 88112; 88305; 88331; 93005; 93010; 94640; J0456; J0696; J1030; J1100; J1160; J1644; J1650; J1885; J1940; J1956; J2001; J2405; J2704; J2920; J3010; J3490; J7050; J7512; J7620

== ENCOUNTER 2019-06-14 17:49 | Observation (INO) | payer MEDICARE ==
[2019-06-14 18:05] VITALS: BMI 30.2
[2019-06-14] MEDS ORDERED: Acetaminophen 650 MG Suppository PR PRN (19:32)
[2019-06-14] MEDS ORDERED: Calcium Carbonate 500 MG ChewTAB PO PRN (19:32)
[2019-06-14] MEDS ORDERED: Senokot S 8.6-50 MG TAB PO PRN (19:32)
[2019-06-14] MEDS ORDERED: Acetaminophen 325 MG TAB PO PRN (19:32)
[2019-06-14] MEDS ORDERED: Furosemide 20 MG/2 ML VIAL SLOW IVP SCH (19:45)
[2019-06-14] MEDS ORDERED: Furosemide 40 MG/4 ML VIAL SLOW IVP SCH (20:00)
[2019-06-14] MEDS ORDERED: Warfarin Sodium 2.5 MG TAB PO SCH (20:15)
[2019-06-14 20:19] LABS: INR-International Normal Ratio 1.8; PTT 40.6 SEC (22.9-36.1); Prothrombin Time 20.6 SEC (12.0-14.7)
[2019-06-14] MEDS: Cefuroxime Axetil 250 MG TAB PO SCH (20:37)
[2019-06-14] MEDS: Atorvastatin Calcium 40 MG TAB PO SCH (20:37)
[2019-06-14] MEDS: Loratadine 10 MG TAB PO SCH (20:38)
[2019-06-14] MEDS ORDERED: Enoxaparin Sodium 80 MG/0.8 ML SYRINGE SC SCH (21:00)
--- NOTE | 2019-06-15 00:30 | PDOC.FPRHP ---
- History of Present Illness Chief Complaint: Swelling Legs History of Present Illness: 88 y/o M with a pmhx of a fib, htn, cad s/p X3 vessel cabg, aortic stenosis s/p mechanical valve replacement, presenting to [facility] via transfer from [place] for pneumonia. Pt has had leg swelling since his discharge from the hospital 2 days ago. He feels like the swelling is due to the recent increase in his Metoprolol. They said they went to the ED after concerns from the home health nurse. In the ED in [place], they said the ED doctor told him his white count was too high and he probably had an infection in his blood and needed to be treated. He says he has had orthopnea and PND, as well as SOB, which has resolved with the oxygen he is on currently. ED Course: In the [place] ED, he was found to have a WBC of 12.6, LA: 2.6. He had a BNP of 181. Trop was 0.025. UA was negative. AST was 48 and ALT was 101. - Allergies/Adverse Reactions Allergies Allergy/AdvReac Type Severity Reaction Status Date / Time No Known Allergies Allergy Verified 06/14/19 17:53 - Home Medications Medication Instructions Recorded Confirmed Type Amlodipine [Norvasc] 1 tab PO DAILY 06/07/19 06/14/19 History Aspirin [Briana Chewable Aspirin] 1 tab PO DAILY 06/07/19 06/14/19 History Furosemide [Lasix] 1 tab PO BID 06/07/19 06/14/19 History Levothyroxine Sodium 1 tab PO DAILY 06/07/19 06/14/19 History Lisinopril 1 tab PO DAILY 06/07/19 06/14/19 History Loratadine [Claritin] 10 mg PO HS 06/07/19 06/14/19 History Omeprazole 1 tab PO DAILY 06/07/19 06/14/19 History Atorvastatin Calcium [Lipitor] 40 mg HS 06/08/19 06/14/19 History Cefuroxime Axetil [Ceftin] 250 mg PO Q12HR #10 tab 06/12/19 06/14/19 Rx Digoxin [Lanoxin] 0.125 mg PO DAILY #30 tab 06/12/19 06/14/19 Rx Enoxaparin Sodium [Lovenox] 80 mg SC 0900,2100 #14 syringe 06/12/19 06/14/19 Rx Ipratropium/Albuterol Sulfate 3 ml NEB Q4H PRN #1 box 06/12/19 06/14/19 Rx [DuoNeb] Metoprolol Succinate [Toprol XL] 200 mg PO DAILY #30 tab 06/12/19 06/14/19 Rx Warfarin Sodium [Coumadin] 2.5 mg PO 1700 #30 tab 06/12/19 06/14/19 Rx predniSONE 20 mg PO QAM-WM #5 tab 06/12/19 06/14/19 Rx - History PMHx: a fib, aortic stenosis s/p mechanical valve replacement on chronic warfarin therapy, htn, CAD s/p X3 vessel cabg. Hypothyroidism, previous SD, HLD , COPD PSHx: 2002 X3 vessel CABG, Aortic valve replacement, small bowel resection, aortic aneurysm stenting, cataract removal, appendectomy FHx: father: cad, SD. Brother: heart disease Social: Smoked 2.5 ppd form many years. Quit in 1984. Quit drinking etoh heavily in 1972. Denies any illicit drug use. - Review of Systems General: reports: weight/appetite/sleep changes (sleep changes). denies: fever/ chills Eyes: denies: vision changes ENT: denies: nasal congestion, rhinorrhea Respiratory: reports: cough (dark brown sputum), shortness of breath. denies: congestion Cardiovascular: reports: edema, paroxysmal nocturnal dyspnea, orthopnea. denies : chest pain Gastrointestinal: denies: nausea, vomiting, diarrhea, constipation Genitourinary: denies: dysuria Skin: denies: rashes Musculoskeletal: denies: pain, tenderness Neurological: denies: numbness, weakness - Vital signs BP: 152/79 HR: 87 RR:18 Tmax: 98.2 Pox: 95% on 2L Wt: 82.41 kg - Physical Exam Constitutional: NAD, awake, alert and oriented HEENT: normocephalic and atraumatic, PERRLA, EOMI, normal nasal mucosa, MMM, oropharynx clear Neck: supple, no LAD Heart: RRR, normal S1/S2, no murmurs/rubs/gallops -Lungs: CTA in UL b/l. Decreased breath sounds in LL b/l Abdomen: soft, non-tender, bowel sounds present Musculoskeletal: normal structure, normal tone, ROM grossly normal Neurological: no focal deficit, CN II-XII intact Skin: no rash/lesions Heme/Lymphatic: no unusual bruising or bleeding, no purpura, no petechia Psychiatric: normal mood and affect FMR H&P: Results - Labs Result Diagrams: 06/15/19 05:24 06/15/19 05:24 Lab results: Lactic Acid 2.0 mmol/L (0.5-2.2) 06/14/19 21:29 - Radiology Interpretation Chest x-ray Status: image reviewed by me, report reviewed by me (Right midlung zone consolidation compatible w/ PNA. F/U recommended. Elevation of the R. hemidiaphragm vs pleural fluid.) FMR H&P: A/P - Problem List (1) CHF (congestive heart failure) Current Visit: Yes Status: Chronic Code(s): I50.9 - HEART FAILURE, UNSPECIFIED Qualifiers: Heart failure chronicity: acute on chronic (2) A-fib Current Visit: No Status: Chronic Code(s): I48.91 - UNSPECIFIED ATRIAL FIBRILLATION Qualifiers: Atrial fibrillation type: longstanding persistent Qualified Code(s): I48.11 - Longstanding persistent atrial fibrillation (3) COPD (chronic obstructive pulmonary disease) Current Visit: No Status: Chronic (4) HLD (hyperlipidemia) Current Visit: No Status: Chronic Code(s): E78.5 - HYPERLIPIDEMIA, UNSPECIFIED (5) HTN (hypertension) Current Visit: No Status: Chronic Code(s): I10 - ESSENTIAL (PRIMARY) HYPERTENSION (6) Hypothyroidism Current Visit: No Status: Acute Code(s): E03.9 - HYPOTHYROIDISM, UNSPECIFIED (7) Pneumonia Current Visit: No Status: Acute Code(s): J18.9 - PNEUMONIA, UNSPECIFIED ORGANISM Qualifiers: Lung location: middle lobe of lung Comment: post obstructive pneumonia 2/2 R middle lobe lung mass - Plan 88 y/o M with a pmhx of a fib, htn, cad s/p X3 vessel cabg, aortic stenosis s/p mechanical valve replacement, presenting to [facility] via transfer from [place] for pneumonia. 1. Possible CHF Exacerbation 1+ swelling of LE with PND, Orthopnea, and SOB * Will give 40 mg IV Lasix, Recently increased to 40 po BID upon discharge from last visit. * Strict I&Os * Daily weights * Will get ECHO, no previous ECHO in records * Will Check Digoxin level 2. Elevated LFTs AST: 48, ALT: 101 * Likely 2/2 fluid overload causing hepatic congestion * Will continue to trend with CMP. May consider Ab US if doesn't improve with tx for fluid overload. 3. Post obstructive PNA SOB with dark brown sputum production * Currently on 2L * Will monitor O2 and adjust as needed to maintain O2 sats >92% * Continuing Ceftin from last hospital admission * Currently on Prednisone 20 mg daily for 3 more days * Has home O2 * Duonebs Q4H 4. Afib with RVR HR: 80s, Currently in sinus rhythm * known h/o * Currently taking Metoprolol and Digoxin * Ordered Therapeutic Lovenox and will continue Warfarin. Pt is on lovenox to bridge until INR is therapeutic * INR ordered * Digoxin level ordered 5. Aortic stenosis s/p Mechanical valve replacement * Per above * Restarted warfarin and getting INR to see if therapeutic. Continue Lovenox until pt stable on warfarin. 6. HTN * continue home medications 7. HLD * Continue Atorvastatin 8. Hypothyroidism * Continue levothyroxine 9. CAD s/p X3 vessel CABG * Continue home medications 10. COPD Currently on 2L NC * Continue home meds * Duonebs Q4H miladis 11. Anemia of chronic disease Hgb: 11, MCV: 71 * Last admission: Hb 11.6, MCV 72.3 * no s/s of acute blood loss * Will monitor Code Status: Full Diet: HHLSo Lines: Peripheral, SL DVT PPx: Th lovenox with Warfarin Dispo: Med inpt, LOS likely < 24H. Will work up the fluid overload and likely discharge. FMR H&P: Upper Level - Pertinent history I have reviewed the above HPI. After talking with patient I agree with the above documentation. I have made edits as needed. - Pertinent findings General: A&Ox3. No acute distress Cardio: RRR, no murmurs or gallops. Resp: Some mild rales noted bilaterally. no crackles or wheezes. Decreased breath sounds in lower lobes. Abdomen: NTTP, no masses or hernias. Ext: +1 pitting edema in LE bilaterally. - Plan Date/Time: 06/15/19 0029 I, Jarret Ayers, PGY-3, have evaluated this patient and agree with findings/ plan as outlined by senior internet sales consultant resident. Pertinent changes/additions are listed here. I made edits to the above plan as needed. See above for details. At this time pt was admitted for concern for fever and WBC count. Pt has post obstructive PNA which we are aware from last admission and continuing to treat. Pt does not show signs of worsening infection. After talking to patient it seems he is having more symptoms related to possible fluid overload and possible CHF exacerbation. Pt recently had meds adjusted by cardiology during last visit. Will get ECHO and will tx fluid overload with 40 mg IV lasix and continue daily. Believed Elevated Transaminases to be related to congestion. Will trend with CMP. Will continue home meds for chronic medical problems. Addendum - Attending - Attending Attestation Date/Time: 06/15/19 6148 I personally evaluated the patient and discussed the management with Dr. Kline/ Armen. I agree with the History, Examination, Assessment and Plan documented above with any addition or exceptions noted below. Patient with recent hospitalization for post obstructive pneumonia who continues on treatment for that in the setting of non small cell lung cancer admitted for lower extremity swelling and symptoms suggestive of CHF. His labs are fairly similar to previous admission. He reports his breathing is improved. Will obtain Echo, mild diuresis, and monitor his status. No concern at this time for sepsis as he is already on abx therapy for his previous pneumonia and there is no evidence of new infection at this time.
[2019-06-15] MEDS: Levothyroxine Sodium 75 MCG TAB PO SCH (05:25)
[2019-06-15 05:39] LABS: INR-International Normal Ratio 1.6; Prothrombin Time 19.1 SEC (12.0-14.7)
[2019-06-15 05:40] LABS: PTT 44.8 SEC (22.9-36.1)
--- NOTE | 2019-06-15 05:46 | PDOC.FM ---
- Subjective Subjective: Pt is upset this morning, desires less lab draws. Explained need but will stop when appropreiate. States presented because he was told his metoprolol dose was too high by home nurse. Increased LE Edema. Voiding well. No fever/chills, CP, SOB, n/v. Tolerating PO well. He is very eager to be discharged home. - Objective MAR Reviewed: Yes Vital Signs & Weight: Vital Signs (12 hours) Temp Pulse Resp BP BP Pulse Ox 06/15/19 04:00 98.4 F 81 20 120/71 94 L 06/15/19 02:22 96 14 97 06/15/19 00:00 98.5 F 79 20 129/76 94 L 06/14/19 23:19 85 16 96 06/14/19 19:31 98.2 F 82 20 156/68 H 95 06/14/19 17:49 98.2 F 87 18 152/79 H 95 Weight Weight 82.418 kg Result Diagrams: 06/15/19 05:24 06/15/19 05:24 Phys Exam - Physical Examination Constitutional: NAD (resting comf) resting comfortably. HEENT: moist MMs Neck: supple Respiratory: no wheezing, no rales, no rhonchi, clear to auscultation bilateral Cardiovascular: no rub Irregurally irregular, 2/6 GLORIA and valve click Gastrointestinal: soft, non-tender, no distention, positive bowel sounds 1+ pitting Bl LE mid-[place] Neurological: non-focal, moves all 4 limbs Psychiatric: normal affect, A&O x 3 Dx/Plan (1) Pneumonia Code(s): J18.9 - PNEUMONIA, UNSPECIFIED ORGANISM Status: Acute Qualifiers: Lung location: middle lobe of lung (2) CHF (congestive heart failure) Code(s): I50.9 - HEART FAILURE, UNSPECIFIED Status: Chronic Qualifiers: Heart failure chronicity: acute on chronic (3) A-fib Code(s): I48.91 - UNSPECIFIED ATRIAL FIBRILLATION Status: Chronic Qualifiers: Atrial fibrillation type: longstanding persistent Qualified Code(s): I48.11 - Longstanding persistent atrial fibrillation (4) CKD (chronic kidney disease), stage III Code(s): N18.3 - CHRONIC KIDNEY DISEASE, STAGE 3 (MODERATE) Status: Chronic (5) COPD (chronic obstructive pulmonary disease) Status: Chronic (6) HLD (hyperlipidemia) Code(s): E78.5 - HYPERLIPIDEMIA, UNSPECIFIED Status: Chronic (7) HTN (hypertension) Code(s): I10 - ESSENTIAL (PRIMARY) HYPERTENSION Status: Chronic (8) Mass of middle lobe of right lung Code(s): R91.8 - OTHER NONSPECIFIC ABNORMAL FINDING OF LUNG FIELD Status: Chronic - Plan Plan: 88 y/o M with a pmhx of a fib, htn, cad s/p X3 vessel cabg, aortic stenosis s/p mechanical valve replacement, presenting to [facility] via transfer from [place] for pneumonia and possible CHF exacerbation #Possible CHF Exacerbation - 1+ swelling of LE with PND, Orthopnea, and SOB - Lasix 40 IV at admission to [facility]. Home dose of 40 PO BID held at this time - Strict I's&O's, daily weights - Dig lv low at 0.56, will cont home dose - Echo pending #Transaminitis - AST: 48, ALT: 101 -> improved to 37/82 - Likely 2/2 fluid overload causing hepatic congestion #Post obstructive PNA - SOB with dark brown sputum production - cont home O2 @ 2L - Continuing ceftin 1/5, from last hospitalization - Prednisone day 1/3 - duonebs q4h prn #R non-small cell lung cancer - newly diagnosed at last hospitalization, final path pending, f/u with Dr. Brito as OP #Afib - HR 80s - Cont home Troprol and Dig - Th Lovenox to bridge to home warfarin with INR checks - dig lv 0.56 #Aortic stenosis s/p Mechanical valve replacement - Per above. Restarted warfarin and getting INR to see if therapeutic. Continue Lovenox until pt stable on warfarin. #HTN - cont home meds #HLD - cont home lipitor #Hypothyroidism - cont levothyroxine #CAD s/p X3 vessel CABG - Continue home medications #COPD - Does not appear to be in acute exacerbation, cont home O2, duonebs #Anemia of chronic disease - Hb stable @ 11, no s/s of acute blood loss, cont to monitor. Code Status: Full Diet: HHLSo Lines: Peripheral, SL DVT PPx: Th lovenox with bridge to Warfarin Dispo: Admitted for suspected CHF exacerbation, labs pending. Cont diuresis. Echo pending. Anticipate hospitalization < 48 hours. Addendum - Attending - Attending Attestation Date/Time: 06/15/19 0800 I personally evaluated the patient and discussed the management with Dr. Kline. I agree with the History, Examination, Assessment and Plan documented above with any addition or exceptions noted below. See H/P addendum for full details.
[2019-06-15 05:49] LABS: #Eosinphils 0.2 thou/uL (0.0-0.7); #Lymphocytes 2.1 thou/uL (1.20-3.40); #Monocytes 1.7 thou/uL (0.11-0.59); %Basophils 0.2 % (0.0-1.0); %Eosinophils 1.5 % (0.0-10.0); %Lymphocytes 14.9 % (21.0-51.0); %Monocytes 12.3 % (0.0-10.0); %Neutrophils 71.1 % (42.0-75.0); Hemoglobin 11.3 g/dL (14.0-18.0); Mean Corpuscular Hemoglobin 21.5 pg (27.0-31.0); Mean Corpuscular Volume 71.5 fL (78.0-98.0); Platelet Count 210 thou/uL (130-400); RBC Distribution Width 16.2 % (11.5-14.5); Red Blood Cell (RBC) Count 5.26 mill/uL (4.70-6.10)
[2019-06-15 05:54] LABS: ALT (SGPT) 82 U/L (8-55); AST (SGOT) 37 U/L (5-34); Albumin 3.1 g/dL (3.4-4.8); Alkaline Phosphatase 101 U/L (40-110); Anion Gap 11 mmol/L (10-20); BUN (Urea Nitrogen) 15 mg/dL (8.4-25.7); Calc. Creatinine Clearance 74 mL/min (70-130); Calcium 8.5 mg/dL (7.8-10.44); Carbon Dioxide 32 mmol/L (23-31); Chloride 102 mmol/L (98-107); Digoxin 0.56 ng/mL (0.8-2.0); Estimated GFR-MDRD 87; Globulin 3.4 g/dL (2.4-3.5); Glucose 103 mg/dL (83-110); Potassium 3.6 mmol/L (3.5-5.1); Protein, Total 6.5 g/dL (5.8-8.1); Sodium 141 mmol/L (136-145)
[2019-06-15] MEDS ORDERED: Furosemide 40 MG/4 ML VIAL SLOW IVP SCH (09:00)
[2019-06-15] MEDS ORDERED: Furosemide 20 MG/2 ML VIAL SLOW IVP SCH (09:00)
[2019-06-15] MEDS: Cefuroxime Axetil 250 MG TAB PO SCH ×2 (09:07→21:01)
[2019-06-15] MEDS: Amlodipine 10 MG TAB PO SCH (09:08)
[2019-06-15] MEDS: Aspirin Chewable 81 MG TAB PO SCH (09:08)
[2019-06-15] MEDS: Lisinopril 10 MG TAB PO SCH (09:08)
[2019-06-15] MEDS: Digoxin 0.125 MG TAB PO SCH (09:08)
[2019-06-15] MEDS: predniSONE 20 MG TAB PO SCH (09:08)
[2019-06-15] MEDS: Enoxaparin Sodium 80 MG/0.8 ML SYRINGE SC SCH ×2 (09:09→21:01)
--- NOTE | 2019-06-15 16:45 | ULT ---
ULTRASOUND DOPPLER DUPLEX VENOUS BILATERAL LOWER EXTREMITIES: DATE: 06/15/2019 HISTORY: 88-year-old male with bilateral lower extremity pain TECHNIQUE: Grayscale, color-flow, and spectral analysis, of major veins of bilateral lower extremities. FINDINGS: There is demonstration of blood flow with normal compressibility, of the bilateral common femoral, pr ofunda femoral, greater saphenous, femoral, popliteal, and posterior tibial, veins. IMPRESSION: Negative. No deep venous thrombosis of bilateral lower extremities.
[2019-06-15] MEDS ORDERED: Warfarin Sodium 2.5 MG TAB PO SCH (17:00)
[2019-06-15] MEDS: Loratadine 10 MG TAB PO SCH (21:01)
[2019-06-15] MEDS: Atorvastatin Calcium 40 MG TAB PO SCH (21:01)
[2019-06-16 05:11] LABS: INR-International Normal Ratio 1.5; PTT 35.8 SEC (22.9-36.1); Prothrombin Time 17.8 SEC (12.0-14.7)
[2019-06-16 05:16] LABS: Hemoglobin 11.2 g/dL (14.0-18.0); Platelet Count 188 thou/uL (130-400)
[2019-06-16] MEDS: Levothyroxine Sodium 75 MCG TAB PO SCH (05:33)
[2019-06-16 05:34] LABS: Troponin I 0.019 ng/mL (< 0.028)
--- NOTE | 2019-06-16 05:41 | PDOC.FM ---
- Subjective Subjective: Doing well this morning, no concerns or complaints. No acute events overnight. Tolerating PO well without n/v. States LE swelling and pain is improved. No acute SOB, CP. Cough has decreased. Eager for discharge. - Objective MAR Reviewed: Yes Vital Signs & Weight: Vital Signs (12 hours) Temp Pulse Resp BP BP Pulse Ox 06/16/19 03:58 97.5 F L 91 18 152/76 H 92 L 06/16/19 03:24 97.5 F L 91 20 152/76 H 92 L 06/16/19 02:09 68 14 94 L 06/16/19 02:00 97.5 F L 68 14 134/77 94 L 06/16/19 01:00 98.4 F 77 20 134/77 93 L 06/16/19 00:00 98.4 F 77 20 134/77 134/77 93 L 06/15/19 22:43 79 16 95 06/15/19 22:00 98.4 F 77 20 134/77 93 L 06/15/19 21:00 97.8 F 80 20 114/67 93 L 06/15/19 20:00 97.8 F 80 20 114/67 114/67 93 L 06/15/19 19:15 97.8 F 80 20 114/67 93 L 06/15/19 19:00 97.8 F 80 20 114/67 93 L 06/15/19 18:22 82 16 94 L Weight Admit Weight 82.1 kg Weight 82.1 kg I&O: 06/14/19 06/15/19 06/16/19 06:59 06:59 06:59 Intake Total 1000 Output Total 1125 Balance -125 Result Diagrams: 06/16/19 04:55 06/15/19 05:24 Phys Exam - Physical Examination Constitutional: NAD (resting comfortably, calm, in good spirits) HEENT: moist MMs Neck: supple Respiratory: no wheezing, no rales, no rhonchi decreased aeration throughout, no acute changes, symmetric chest wall expansion Cardiovascular: no rub, irregular 3/6 GLORIA, mechanical valve click Gastrointestinal: soft, non-tender, no distention, positive bowel sounds Musculoskeletal: edema present (1+ to mid-[place], improved from previous days exam ) Neurological: non-focal, moves all 4 limbs Psychiatric: normal affect Dx/Plan (1) Pneumonia Code(s): J18.9 - PNEUMONIA, UNSPECIFIED ORGANISM Status: Acute Qualifiers: Lung location: middle lobe of lung (2) CHF (congestive heart failure) Code(s): I50.9 - HEART FAILURE, UNSPECIFIED Status: Chronic Qualifiers: Heart failure chronicity: acute on chronic (3) A-fib Code(s): I48.91 - UNSPECIFIED ATRIAL FIBRILLATION Status: Chronic Qualifiers: Atrial fibrillation type: longstanding persistent Qualified Code(s): I48.11 - Longstanding persistent atrial fibrillation (4) CKD (chronic kidney disease), stage III Code(s): N18.3 - CHRONIC KIDNEY DISEASE, STAGE 3 (MODERATE) Status: Chronic (5) COPD (chronic obstructive pulmonary disease) Status: Chronic (6) HLD (hyperlipidemia) Code(s): E78.5 - HYPERLIPIDEMIA, UNSPECIFIED Status: Chronic (7) HTN (hypertension) Code(s): I10 - ESSENTIAL (PRIMARY) HYPERTENSION Status: Chronic (8) 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 via transfer from [place] for pneumonia and possible CHF exacerbation #Possible CHF Exacerbation - 1+ swelling of LE with PND, Orthopnea, and SOB - s/p IV lasix, will transition to home PO lasix dose as sxs have improved and appear to be near baseline - Strict I's&O's, daily weights - Dig lv low at 0.56, will cont home dose, will need cont monitoring - Echo Ef 60-65%, Mod aortic stenosis and mod-severe tricuspid regurg #Transaminitis, improved - AST: 48, ALT: 101 -> improved to 37/82 - Likely 2/2 fluid overload causing hepatic congestion #Post obstructive PNA - SOB with dark brown sputum production, improved this AM - cont home O2 @ 2L - Continuing ceftin 2/5, from last hospitalization - Prednisone day 2/3 - duonebs q4h prn #R non-small cell lung cancer - newly diagnosed at last hospitalization, final path pending, f/u with Dr. Brito as OP #Afib - Rate controlled with HR 80s - Cont home Troprol and Dig, dig lv 0.56 - Th Lovenox to bridge to home warfarin with INR checks - Adjust warfarin dose as needed, will need cont OP monitoring #Aortic stenosis s/p Mechanical valve replacement - Per above. Restarted warfarin and cehcking INR to see if therapeutic. Continue Lovenox until pt stable on warfarin. Goal INR 2.5-3.5. #HTN - cont home meds #HLD - cont home lipitor #Hypothyroidism - cont levothyroxine #CAD s/p X3 vessel CABG - Continue home medications #COPD - Does not appear to be in acute exacerbation, cont home O2, duonebs #Anemia of chronic disease - Hb stable @ 11, no s/s of acute blood loss, cont to monitor. Code Status: Full Diet: HHLSo Lines: Peripheral, SL DVT PPx: Th lovenox with bridge to Warfarin Dispo: Admitted for suspected CHF exacerbation, improved and near baseline. Cont diuresis with home lasix dose. Clinically improved. Cont lovenox bridge to warfarin with appropriate INR and adjustments of dose. Anticipate discharge today pending clinical course. Addendum - Attending - Attending Attestation Date/Time: 06/16/19 8799 I personally evaluated the patient and discussed the management with Dr. Kline. I agree with the History, Examination, Assessment and Plan documented above with any addition or exceptions noted below. Patient doing well. Continues to have several advanced chronic illnesses, but those are currently controlled on his current medical therapy. Stable for discharge.
[2019-06-16] MEDS: Cefuroxime Axetil 250 MG TAB PO SCH (08:30)
[2019-06-16] MEDS: Digoxin 0.125 MG TAB PO SCH (08:30)
[2019-06-16] MEDS: Aspirin Chewable 81 MG TAB PO SCH (08:30)
[2019-06-16] MEDS: Amlodipine 10 MG TAB PO SCH (08:30)
[2019-06-16] MEDS: predniSONE 20 MG TAB PO SCH (08:31)
[2019-06-16] MEDS: Lisinopril 10 MG TAB PO SCH (08:31)
[2019-06-16] MEDS: Enoxaparin Sodium 80 MG/0.8 ML SYRINGE SC SCH (08:31)
[2019-06-16] MEDS ORDERED: Furosemide 40 MG TAB PO SCH ×2 (09:00)
[2019-06-16 11:18] VITALS: BP 129/60; TEMP 98.7
[2019-06-16] MEDS ORDERED: Warfarin Sodium 3 MG TAB PO SCH (17:00)
--- NOTE | 2019-06-16 18:27 | DIS ---
DATE OF ADMISSION: 06/14/2019 DATE OF DISCHARGE: 06/16/2019 RESIDENT: Diomedes Kline MD ADMITTING ATTENDING: Rome Martinez MD DISCHARGE ATTENDING: Rome Martinez MD CONSULTS: None. PROCEDURES: 1. Lower extremity venous Doppler on 06/15/2019, demonstrating no acute deep venous thrombosis. 2. Echocardiogram on 06/15/2019, demonstrating an ejection fraction of 60% to 65%. Left atrium moderately dilated. Moderate aortic stenosis with valve area of 1.26 cm2. Fohjvnoi-hj-qxzsel tricuspid regurgitation. Mild pulmonic regurgitation present. PRIMARY DIAGNOSIS: Mild congestive heart failure exacerbation. SECONDARY DIAGNOSES: 1. Transaminitis, improved. 2. Known postobstructive pneumonia, undergoing treatment. 3. Right-sided non-small cell lung cancer. 4. Rate controlled atrial fibrillation. 5. Aortic stenosis with mechanical valve. 6. Hypertension. 7. Hyperlipidemia. 8. Hypothyroidism. 9. Coronary artery disease, status post 3-vessel coronary artery bypass grafting. 10. Chronic obstructive pulmonary disease. 11. Anemia of chronic disease. DISCHARGE MEDICATIONS: 1. Claritin 10 mg p.o. at bedtime. 2. Omeprazole 20 mg p.o. daily. 3. Lisinopril 10 mg p.o. daily. 4. Levothyroxine 75 mcg p.o. daily. 5. Lasix 40 mg p.o. b.i.d. 6. Aspirin 81 mg p.o. daily. 7. Norvasc 10 mg p.o. daily. 8. Lipitor 40 mg p.o. at bedtime. 9. Ceftin 250 mg p.o. q.12 hours x5 days. 10. Digoxin 0.125 mg p.o. daily. 11. Lovenox 80 mg subcu b.i.d. until therapeutic on warfarin. 12. Metoprolol succinate 200 mg p.o. daily. 13. Prednisone 20 mg p.o. q.a.m. x3 days. 14. Warfarin 3 mg p.o. daily at 1700. 15. DuoNeb nebulizers q.4 hours p.r.n. Discontinued medications; Warfarin 2.5 mg p.o. daily. HISTORY OF PRESENT ILLNESS AND HOSPITAL COURSE: The patient is a pleasant 88-year-old male with past medical history of atrial fibrillation; hypertension; coronary artery disease, status post CABG; and aortic stenosis, status post mechanical valve, who presented to [facility] as a transfer from [place] for pneumonia. Of note, the patient was recently hospitalized for postobstructive pneumonia and found to have a newly diagnosed right-sided non-small cell lung cancer, and was discharged approximately 2 days prior to readmission. He presented to the [place] ER with increased swelling of his lower extremities and a "low-grade fever." In the ED, he was found to have a white blood cell count of 12.6, a lactic acid of 2.6, and a BNP of 181. His UA was negative. His AST and ALT were mildly elevated at 48 and 101 respectively. The patient also endorsed increased orthopnea and PND, as well as mild shortness of breath. However, the patient was recently started on home O2 for this. He was then transferred to [facility] for further evaluation and management. On the floor, he was found to have mild lower extremity edema 1+ bilaterally as well as some PND, orthopnea, and shortness of breath. His home Lasix was held and he was started on IV Lasix 40 mg. The patient diuresed well and his lower extremity edema improved. An echocardiogram was obtained that showed the readings per above and a lower extremity Doppler ultrasound was negative for DVT. Wound Care was consulted for compression stockings as the patient uses compression dressings at home for his chronic lower extremity swelling. It was determined that the patient may have had a mild CHF exacerbation as well as moderate to severe tricuspid regurg, probably leading to his volume overload. The patient was transitioned back to his home Lasix and given instructions to follow up with his backend java developer. At the time of discharge, the patient's lower extremity edema had improved. His shortness of breath was at baseline and he was saturating well on his 2 L home O2. He was able to ambulate in the room without much difficulty, tolerating p.o. well and is eager for discharge. Regarding the patient's postobstructive pneumonia, the patient had not finished his course of antibiotics at home and was found to be afebrile, have no increased sputum production or shortness of breath here in the hospital. He was continued on his outpatient antibiotics and continues to do well. He has also continued on his steroids, for which he had not finished the course from his previous hospitalization. Regarding the patient's INR and warfarin dosing, his INR was consistently subtherapeutic from 1.7 to 1.5 at time of discharge. His dose was increased from 2.5 mg daily to 3 mg daily and family was instructed to check the INR every 3 days at home with home INR machine and to call the backend java developer's office with updates and continue the therapeutic Lovenox until warfarin was therapeutic. Daughter voiced agreement understanding of this plan and followup. Regarding the patient's chronic medical conditions, home medications were continued. There is no acute exacerbation of his other medical conditions. DISCHARGE PLAN: Discussed with family at bedside as well as with the patient. Discharge medications were discussed and appropriate followup with Dr. Lawton, the primary care provider and Dr. Crow, the backend java developer. The patient also to follow up with Dr. Briot as previously directed. All questions were answered appropriately. Next, the patient was then discharged home with daughter. DISPOSITION: Stable. DISCHARGE INSTRUCTIONS: 1. Activity. Cardiopulmonary limits with home O2. 2. Diet: Heart healthy, low-sodium. 3. Location: Home. 4. Followup: The patient to follow up with Dr. Lawton this week as previously scheduled. Dr. Crow next week as previously scheduled and Dr. Brito as directed. Job ID: [id number]
== END 2019-06-16 12:10 | disposition home health service (06) ==
LOC: T4-A 17:49
PROVIDERS: ADMIT Student in an Organized Health Care Education/Training Program; ATTEND Student in an Organized Health Care Education/Training Program
DX: I11.0 Hypertensive heart disease with heart failure (principal); I50.9 Heart failure, unspecified; I48.91 Unspecified atrial fibrillation; I25.10 Atherosclerotic heart disease of native coronary artery without angina pectoris; E03.9 Hypothyroidism, unspecified; J44.9 Chronic obstructive pulmonary disease, unspecified; C34.91 Malignant neoplasm of unspecified part of right bronchus or lung; E78.5 Hyperlipidemia, unspecified; I25.2 Old myocardial infarction; R74.0 Nonspecific elevation of levels of transaminase and lactic acid dehydrogenase [LDH]; Z79.01 Long term (current) use of anticoagulants; Z79.82 Long term (current) use of aspirin; Z79.899 Other long term (current) drug therapy; Z87.891 Personal history of nicotine dependence; Z95.1 Presence of aortocoronary bypass graft; Z95.4 Presence of other heart-valve replacement
CPT/HCPCS: 36415; 80053; 80162; 83605; 84484; 85014; 85018; 85025; 85049; 85610; 85730; 93306; 93798; 93970; 94640; 96372; 96374; G0378; J1650; J1940; J7512; J7620

== ENCOUNTER 2019-07-03 12:04 | Outpatient (CLI) | payer MEDICARE ==
--- NOTE | 2019-07-03 16:51 | PET ---
PET CT: HISTORY: 88-year-old male with malignant neoplasm of the right main bronchus. Poorly differentiated large cell neoendocrine carcinoma. Exam requested for initial staging. TECHNIQUE: PET scanning with CT attenuation correction was performed from the base of the brain through the prox imal thighs following the intravenous administration of 12 mCi F18-FDG in the right antecubital fossa . COMPARISON: None. CORRELATION: None. FINDINGS: There is increased FDG localization in the large right hilar/perihilar mass with a SUV of 13.2. There is devika hypermetabolism involving the right supraclavicular (SUV 4.8), right anterior superior mediastinum (SUV 7), right paratracheal (SUV 8), and subcarinal (SUV 6.8) lymph nodes. There are multiple hypermetabolic lesions in the liver with a maximum SUV of 9.6 in the left lobe and SUVs of 12, 6.3, and 6.1, respectively, in the right lobe. No hypermetabolic adrenal or skeletal lesions are seen. There is physiologic activity in the GI and tracts, and the visualized portions of the brain. The CT scan used for attenuation correction demonstrates a moderate size right pleural effusion. No a scites is seen. There is colonic diverticulosis. An abdominal aortic stent graft is present. 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 POS: LILLIAN
== END 2019-07-03 12:05 | disposition home or self-care (01) ==
LOC: PET 12:04
PROVIDERS: ATTEND Internal Medicine Hematology & Oncology
DX: C34.01 Malignant neoplasm of right main bronchus (principal); C78.7 Secondary malignant neoplasm of liver and intrahepatic bile duct; C77.9 Secondary and unspecified malignant neoplasm of lymph node, unspecified
CPT/HCPCS: 78815; A9552

== ENCOUNTER 2019-07-04 09:33 | Outpatient (CLI) | payer MEDICARE ==
[~2019-07-04 09:33] MED LIST: Magnevist 469MG/ML 20 ML VIAL ONE
--- NOTE | 2019-07-04 11:08 | MRI ---
BRAIN MRI WITH AND WITHOUT CONTRAST: HISTORY: Large cell lung cancer. Examination is requested for staging. COMPARISON: None. There are no prior MRIs in the [facility] system. FINDINGS: Gradient echo sequence: No hemorrhage. Calvarium: Appropriate T1 marrow signal intensity. Midline brain parenchyma: Unremarkable. Cerebrum:No parenchymal mass, mass effect or midline shift. Brain volume, age-appropriate. Cortical g ray-white matter differentiation is preserved. Scattered T2 and FLAIR white matter hyperintensities due to chronic small vessel ischemic change. Ventricles: No evidence of hydrocephalus. Sinuses and mastoid air cells: Adequate aeration. Diffusion: Central arterial flow is maintained. Absent restricted diffusion. Postcontrast images: No pathologic enhancement of the brain parenchyma. IMPRESSION: No pathologic enhancement the brain parenchyma. There is no MR evidence of an intracranial metastatic lesion. Transcribed Date/Time: 07/04/2019 12:23 PM
== END 2019-07-04 09:34 | disposition home or self-care (01) ==
LOC: MRI 09:33
PROVIDERS: ATTEND Internal Medicine Hematology & Oncology
DX: C34.01 Malignant neoplasm of right main bronchus (principal)
CPT/HCPCS: 70553; A9579

== ENCOUNTER 2019-07-11 10:26 | Day surgery (SDC) | payer MEDICARE ==
[2019-07-10 13:43] VITALS: BMI 29.9
[~2019-07-11 10:26] MED LIST changes: -Magnevist 469MG/ML 20 ML VIAL ONE; +PROPOFOL 200 MG/20 ML VIAL ONE
[2019-07-11 11:25] LABS: Hemoglobin 11.6 g/dL (14.0-18.0); Mean Corpuscular HGB CONC 30.8 g/dL (32.0-36.0); Mean Corpuscular Hemoglobin 22.4 pg (27.0-31.0); Mean Corpuscular Volume 72.6 fL (78.0-98.0); Mean Platelet Volume 8.7 fL (7.4-10.4); Platelet Count 344 thou/uL (130-400); RBC Distribution Width 16.5 % (11.5-14.5); Red Blood Cell (RBC) Count 5.17 mill/uL (4.70-6.10); White Blood Cell (WBC) Count 10.1 thou/uL (4.8-10.8)
[2019-07-11 11:30] LABS: INR-International Normal Ratio 1.9; Prothrombin Time 21.3 SEC (12.0-14.7)
[2019-07-11 11:51] LABS: Anion Gap 15 mmol/L (10-20); BUN (Urea Nitrogen) 15 mg/dL (8.4-25.7); Calc. Creatinine Clearance 61 mL/min (70-130); Calcium 8.9 mg/dL (7.8-10.44); Carbon Dioxide 31 mmol/L (23-31); Chloride 99 mmol/L (98-107); Estimated GFR-MDRD 71; Glucose 135 mg/dL (83-110); Potassium 4.6 mmol/L (3.5-5.1); Sodium 140 mmol/L (136-145)
[2019-07-11] MEDS ORDERED: Fentanyl 100 MCG/2 ML VIAL ONE (12:55)
[2019-07-11] MEDS ORDERED: Bupivacaine PF 0.5% 30 ML VIAL ONE (13:01)
[2019-07-11] MEDS ORDERED: EPINEPHrine 1 MG/ML AMP ONE (13:01)
--- NOTE | 2019-07-11 15:19 | RAD ---
Portable frontal chest radiograph: 07/11/2019 COMPARISON: 06/14/2019 HISTORY: Mediport placement FINDINGS: Midline sternotomy wires are present. There is increased density in the right paratracheal region, suspicious for lymphadenopathy. There is a lobulated increased density in the right lung base/right perihilar region with obscuration of the right heart border and right hemidiaphragm sugges ting airspace disease, mass density within the right base/right perihilar region, and or right pleural fluid. Right-sided Port-A-Cath present, distal tip overlying cavoatrial junction region. No pneumothorax. Le ft lung appears grossly unremarkable IMPRESSION: No evidence for pneumothorax. Right-sided Port-A-Cath. Additional findings within the rig ht hemithorax, better assessed on recent PET/CT. Interval worsening of opacity within the right hilar region and right lung base may signify worsening obstructive process, infectious pneumonitis, a spiration, and/or progression of malignancy.
--- NOTE | 2019-07-11 21:15 | OP ---
DATE OF PROCEDURE: 07/11/2019 PREOPERATIVE DIAGNOSIS: Lung cancer. PROCEDURE PERFORMED: Right internal jugular MediPort insertion. ANESTHESIA: Local with sedation. DESCRIPTION OF PROCEDURE: After prepping and draping, lidocaine was infiltrated into the neck above the clavicle as well as in the right anterior chest wall and through the proposed tunneling area. Small incision was made in the neck and with ultrasound guidance, the jugular vein was cannulated. However, wire would not advance even under fluoro. Multiple attempts before finally having the wire pass into the right atrium where the dilator and sheath were passed under fluoroscopic visualization. The proposed site for the MediPort was then incised, pocket created and the tunneler brought through to the IJ site with the catheter attached. Following this, catheter was advanced into the right atrium as the peel-away sheath was removed and the catheter was positioned in the superior vena cava. It was then connected to the MediPort, flushed, MediPort placed in its pocket and the wound closed in layers. The patient is to be taken to the recovery room for a chest x-ray. Job ID: [id number]
== END 2019-07-11 16:05 | disposition home or self-care (01) ==
LOC: SDC 10:26
PROVIDERS: ATTEND Thoracic Surgery (Cardiothoracic Vascular Surgery)
PROC: 02HV33Z Insertion of Infusion Device into Superior Vena Cava, Percutaneous Approach (ICD-10-PCS; principal; 2019-07-11)
DX: C34.2 Malignant neoplasm of middle lobe, bronchus or lung (principal); I10 Essential (primary) hypertension; E78.00 Pure hypercholesterolemia, unspecified; E11.9 Type 2 diabetes mellitus without complications; K21.9 Gastro-esophageal reflux disease without esophagitis; Z79.01 Long term (current) use of anticoagulants; Z79.82 Long term (current) use of aspirin; Z79.899 Other long term (current) drug therapy; Z95.1 Presence of aortocoronary bypass graft; Z95.4 Presence of other heart-valve replacement
CPT/HCPCS: 36561; 71045; 80048; 85027; 85610; C1788; 36415; J0171; J0690; J1642; J2704; J3010; S0020

== ENCOUNTER 2019-07-25 03:45 | Inpatient (IN) | payer MEDICARE ==
[2019-07-25] MEDS ORDERED: Cefepime 2 GM VIAL ONE (04:15)
[2019-07-25] MEDS ORDERED: Vancomycin 1 GM/200 ML BAG ONE (04:15)
[2019-07-25 04:56] LABS: ALT (SGPT) 94 U/L (8-55); AST (SGOT) 88 U/L (5-34); Albumin 2.6 g/dL (3.4-4.8); Alkaline Phosphatase 149 U/L (40-110); Anion Gap 16 mmol/L (10-20); BUN (Urea Nitrogen) 19 mg/dL (8.4-25.7); Bilirubin, Total 1.4 mg/dL (0.2-1.2); Calc. Creatinine Clearance 0 mL/min (70-130); Calcium 8.4 mg/dL (7.8-10.44); Carbon Dioxide 27 mmol/L (23-31); Chloride 102 mmol/L (98-107); Estimated GFR-MDRD 67; Globulin 3.4 g/dL (2.4-3.5); Glucose 173 mg/dL (83-110); Sodium 141 mmol/L (136-145)
[2019-07-25 05:05] LABS: Hemoglobin 8.6 g/dL (14.0-18.0); Mean Corpuscular HGB CONC 30.4 g/dL (32.0-36.0); Mean Corpuscular Volume 72.3 fL (78.0-98.0); Mean Platelet Volume 15.6 fL (7.4-10.4); Platelet Count 17 thou/uL (130-400); RBC Distribution Width 16.3 % (11.5-14.5); Red Blood Cell (RBC) Count 3.91 mill/uL (4.70-6.10); White Blood Cell (WBC) Count 0.2 thou/uL (4.8-10.8)
[2019-07-25 05:06] LABS: Anisocytosis SLIGHT = 6-15 cells (100X) (0-5/hpf); Elliptocytes SLIGHT = 2-5 cells (100X) (0-1/hpf); Hypochromia SLIGHT = 6-15 cells (100X) (0-5/hpf); MDiff Complete? YES; Microcytosis SLIGHT = 6-15 cells (100X) (0-5/hpf)
[2019-07-25] MEDS ORDERED: Furosemide 40 MG/4 ML VIAL ONE (05:12)
[2019-07-25 05:17] LABS: CKMB 0.7 ng/mL (0-6.6)
[2019-07-25] MEDS ORDERED: Acetaminophen 325 MG TAB ONE (05:23)
[2019-07-25] MEDS ORDERED: Aspirin 325 MG TAB ONE (05:24)
[2019-07-25 05:29] LABS: Lymphocytes 90 % (21-51); Monocytes 10 % (0-10)
[2019-07-25] MEDS ORDERED: Albuterol Sulfate 2.5 mg/0.5 ml Neb ONE (05:41)
[2019-07-25] MEDS ORDERED: Albuterol Sulfate 2.5 mg/3 ml Neb ONE (05:41)
[2019-07-25 06:16] LABS: Analyzer IN Cardio ER; Base Excess (BEa) -0.1 mEq/L (-2.0 to +3.0); CO2 Tension 42.7 mmHg (35.0-45.0); Calcium, Ionized 1.11 mmol/L (1.12-1.30); Carboxyhemoglobin (COHb) 0.3 gm% (0.0-3.0); Potassium - ABG Lab 3.31 mmol/L (3.70-5.30); pH, Arterial 7.39 (7.35-7.45)
[2019-07-25 06:21] LABS: O2 Tension (PaO2) 54.4 mmHg (> 60.0)
[2019-07-25 06:22] LABS: ALV-art Gradient 106.125 (0-20); Puncture Site RBRACH
--- NOTE | 2019-07-25 07:07 | HP ---
PRIMARY CARE PHYSICIAN: Joss Lawton MD PATIENT'S ONCOLOGIST: Dr. Ibarra. CHIEF COMPLAINT: Found unresponsive yesterday at home. HISTORY OF PRESENT ILLNESS: Mr. Lancaster is a pleasant 88-year-old gentleman who has a history of atrial fibrillation, hypertension, coronary artery disease, and aortic stenosis. He was recently diagnosed with heo-nnlhj-lnom lung cancer and has started chemotherapy. He just completed his 1st round of chemotherapy on last . He was doing fine until 2 days prior to admission when he started to feel a little bit tired, but his daughter says that he was still getting up and doing things, feeding the dog, etc. Then, on the day of admission, he had called his granddaughter several times, so the family decided they better check on him. When they got there, they found him on the floor and he was lethargic. The patient himself says that he has been coughing off and on with some phlegm. He says it is "nasty color" also with some blood. When EMS arrived, he had a temperature of a 102. He admits to having a poor appetite and feeling short of breath. He says he vomited a couple of days ago, but no diarrhea. He denies any chest pain. No abdominal pain, etc. However, when he was evaluated in the ER, he was found to be pancytopenic with a white blood cell count of 0.2 as well as febrile and also had an elevated lactic acid and is hypoxic, tachypneic, and tachycardic and is being admitted to the ICU for further evaluation. REVIEW OF SYSTEMS: All systems were reviewed and are negative except for that mentioned in the history of present illness. PAST MEDICAL HISTORY: Significant for: 1. Atrial fibrillation. 2. Hypertension. 3. Coronary artery disease. 4. Aortic stenosis post valve replacement. 5. He has history of [id number] lung cancer. ALLERGIES: NO KNOWN DRUG ALLERGIES. PAST SURGICAL HISTORY: 1. He has had a 3-vessel bypass. 2. Aortic valve replacement. 3. Small-bowel resection. 4. Appendectomy. 5. Cataract removal. FAMILY HISTORY: Significant for father who had coronary artery disease and brother had heart disease. SOCIAL HISTORY: He is . He is a former smoker. He quit in 1984. He used to drink. He would like to be a full code and his daughter is his surrogate decision maker and medical power of senior attorney. CURRENT MEDICATIONS: Include: 1. Coumadin 3 mg daily. 2. Claritin 10 mg daily. 3. Omeprazole 40 mg daily. 4. Lisinopril 10 mg daily. 5. Levothyroxine 75 mcg daily. 6. Lasix 40 mg daily. 7. Aspirin 81 mg daily. 8. Amlodipine 10 mg daily. 9. Atorvastatin 40 mg daily. 10. Metoprolol extended release 200 mg daily. 11. DuoNebs as needed. PHYSICAL EXAMINATION: GENERAL: He is awake and alert, but appears lethargic and is using accessory muscles of respiration. He is chronically ill in appearance. VITAL SIGNS: Blood pressure was 144/70, heart rate is around 120, respiratory rate is around 20 to 25, and temperature was 99. HEENT: His pupils are equal, round, and reactive. Extraocular muscles are intact. Sclerae anicteric. Throat, no erythema and no exudates. NECK: No adenopathy. No bruits. LUNGS: He has bilateral wheezing as well as rhonchi and rales, the right more so than the left. CARDIOVASCULAR: He had a normal S1 and S2. There is no S3 or S4. No murmurs or clicks. No rubs. ABDOMEN: Soft. It is nontender and nondistended. Positive for bowel sounds. No rebound. No guarding. No organomegaly. EXTREMITIES: There is no edema. No calf tenderness. No joint effusions. SKIN AND INTEGUMENT: No skin changes. No rash. LABORATORY DATA: White blood cell count 0.2, hemoglobin 8.6, hematocrit is 28.3, and platelet count is 17. Sodium 141, potassium 4.0, chloride is 102, CO2 is 27, BUN is 19, creatinine 1.05, and glucose is 173. Total bilirubin is 1.4, AST 88, and ALT 94. Troponin 0.1. Natriuretic peptide is 313. ASSESSMENT: This is an 88-year-old gentleman who presents to the emergency room with acute respiratory failure, likely as a result of a pneumonia and possibly some volume overload as well. Given his low platelets and being on Coumadin, he could also have a lung hemorrhage. He will be admitted to the ICU for further treatment. PLAN: 1. For the acute on chronic respiratory failure with hypoxemia, we will place him on broad-spectrum IV antibiotics. We will need to check his INR. Hold the blood thinners now. Consult Pulmonology. Continue BiPAP. He may require intubation. 2. Neutropenic fever. Continue again broad-spectrum antibiotics. Blood and urine culture should have been done from the ER. We will get ID consult as well as Oncology consult. 3. Coronary artery disease, this appears to be stable. His troponin is slightly elevated, but I suspect that is a demand ischemia from the current infection. 4. Hypertension. Blood pressure is currently relatively controlled. We will place him on p.r.n. medications until we can sort out what his pressure will do with the sepsis. 5. Elevated liver enzymes. I suspect this is likely due to passive congestion from sepsis. 6. The patient's condition is guarded given his multiple comorbid conditions, lung cancer, and advanced age. He is a high risk for severe decompensation and could be considered a palliative care patient. Job ID: [id number]
[2019-07-25 07:35] LABS: Lactic Acid 3.9 mmol/L (0.5-2.2)
--- NOTE | 2019-07-25 07:42 | RAD ---
CHEST 1 VIEW: INDICATION: History of difficulty breathing. COMPARISON: Prior exam dated 07/11/2019. FINDINGS: There is an enlarging moderate to large right-sided pleural effusion with opacification of the mid to lower right lung. There is pulmonary vascular congestion and cardiomegaly. There is a small left p leural effusion. There are midline sternotomy changes. Right chest wall port is unchanged. No pneu mothorax is evident. No acute osseous abnormality is evident. IMPRESSION: 1. Worsening moderate to large right pleural effusion and small left pleural effusion. 2. Cardiomegaly with pulmonary vascular congestion. 3. Findings are concerning for worsening congestive heart failure. POS: BH
[2019-07-25 07:45] LABS: Troponin I 0.125 ng/mL (< 0.028)
[2019-07-25] MEDS ORDERED: hydrALAZINE 20 MG/ML VIAL SLOW IVP PRN (10:27)
[2019-07-25] MEDS ORDERED: Acetaminophen 325 MG TAB PO PRN (10:27)
[2019-07-25] MEDS ORDERED: Ondansetron PF 4 MG/2 ML Vial IVP PRN (10:27)
[2019-07-25] MEDS ORDERED: Vancomycin 1 GM in Premix Bag 1 BAG IVPB SCH (10:27)
[2019-07-25 11:08] LABS: INR-International Normal Ratio 3.2; Prothrombin Time 32.5 SEC (12.0-14.7)
[2019-07-25 11:13] LABS: Troponin I 0.082 ng/mL (< 0.028)
[2019-07-25] MEDS: Cefepime 2 GM in Sodium Chloride 0.9% 100 ML IVPB SCH (12:57)
[2019-07-25 16:40] LABS: Pleural Fluid, Protein 3.2 g/dL
[2019-07-25 16:47] LABS: RBC Count-Automated (BF) 378244 /cumm; WBC/Nucleated-Auto (BF) 714 uL
--- NOTE | 2019-07-25 17:15 | CON ---
DATE OF CONSULTATION: REASON FOR CONSULTATION: Neutropenic fever. HISTORY OF PRESENT ILLNESS: Mr. 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 He initially was having difficulty breathing when lying down and was seen by Dr. Crow who had a SUZE done, which showed a good EF. A CT of the chest shortly thereafter showed a dense area of consolidation in the right upper lung with masslike fullness in the right hilar region. He was transferred to this facility in May, and had a bronchoscopy by Dr. Brito. The washings were negative for malignancy. He then underwent a mediastinal lymph node biopsy by Dr. Steiner on 06/10, that showed poorly differentiated large-cell neuroendocrine carcinoma. The patient was on home O2. He had apparently good performance status prior to diagnosis. He underwent a PET scan which confirmed metastatic disease. He received cycle 1 of dose-reduced carboplatin, [employer]-16, and etoposide, Tecentriq is a 3-day regimen was on 07/15 through the . He did receive Neulasta after treatment. Over the last 2-3 days prior to admission, he was getting progressively weaker. His family checked on him this morning and he was found on the floor unresponsive. He was brought to the emergency room and noted to be pancytopenic with a white count of 200, his platelet counts were 17,000. He was hypoxic and had a fever of 102. He was admitted for neutropenic fever, sepsis, and hypoxic respiratory failure. He remains on BiPAP in the ICU. PAST MEDICAL HISTORY: 1. 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 2. Hypertension. 3. Hypothyroidism. 4. Hyperlipidemia. 5. Acid reflux. 6. Atrial fibrillation. PAST SURGICAL HISTORY: 1. Aortic valve replacement. 2. Appendectomy. 3. Cataract surgery. 4. AAA repair. ALLERGIES: NO KNOWN DRUG ALLERGIES. HOME MEDICATIONS: 1. Albuterol. 2. Amlodipine. 3. Aspirin. 4. Atorvastatin. 5. Compazine. 6. Lasix. 7. Levothyroxine. 8. Lisinopril. 9. Metoprolol. 10. Prilosec. 11. Warfarin. FAMILY HISTORY: Father had pancreatic cancer. SOCIAL HISTORY: , has 4 children. A [id number] history of smoking. Former alcohol use. REVIEW OF SYSTEMS: Unable to obtain secondary to the BiPAP machine. PHYSICAL EXAMINATION: VITAL SIGNS: Temperature 99.2, pulse is 97, respiratory rate 18, BP is 113/50, and he is 97% on I think is 60% FiO2. GENERAL: This is a chronically ill-appearing male, in no acute distress. HEENT: Normocephalic and atraumatic. NECK: Supple. CV: Regular rate and rhythm. LUNGS: Diminished throughout. ABDOMEN: Soft. Bowel sounds are positive. EXTREMITIES: He has 1+ bilateral lower extremity edema. SKIN: No rash. HEMATOLOGIC: No petechiae or purpura. NEUROLOGIC: Nonfocal. PERTINENT LABORATORY DATA AND X-RAYS: Current WBCs are 0.2, hemoglobin 8.6, hematocrit 28.3, platelet count 17,000, 90% neutrophils, 10% monocytes, and 0 neutrophils. PT 32.5 and INR 3.2. Sodium is 141, potassium 4.0, chloride 102, CO2 is 57, BUN is 19, and creatinine 1.05. Lactic acid 3.9. Calcium 8.4. Bilirubin 1.4, AST is 88, ALT is 94, and alkaline phosphatase is 149. Troponin is 0.082. BNP is 313. Serum total protein is 6, albumin 2.6, and globulin 3.4. Radiology per HPI. ASSESSMENT: 1. Neutropenic fever. 2. Respiratory failure. 3. Elevated liver function tests. DISCUSSION: The patient has been pancultured and started on empiric antibiotics. He is placed on BiPAP and is receiving supportive care in the ICU. He did receive Neulasta with the chemotherapy that was on 07/18. It should start to improve his white count over the next 24 to [address] hours. We will update Dr. Ibarra and provide supportive care. Thank you for the consult. We will follow along with his hospitalization. Job ID: [id number]
[2019-07-25 17:25] LABS: BF Color Red; Body Fluid Source Thoracentesis Fluid; Clarity Cloudy/Turbid (Clear); Tube # EDTA
[2019-07-25 17:29] LABS: Cell Count Non Hematic 74 %; Lymphocytes 26 %
--- NOTE | 2019-07-25 17:55 | CON ---
DATE OF CONSULTATION: 07/25/2019 SERVICE: Pulmonary Medicine. REASON FOR CONSULT: Respiratory failure. HISTORY OF PRESENT ILLNESS: The patient is a very pleasant 88-year-old white male with past medical history significant for immune-compromised state. He is on chemotherapy for lung cancer. Apparently, it is a stage [address] , he is in his usual state of health until 2 to 3 days prior to admission. He started having onset of cough, increasing dyspnea on exertion, and sputum productive of brown material. Ultimately, he presented to the Emergency Department and was initiated on treatment for a pneumonia. He was put on BiPAP because of his immune-compromised state. He is talking in full sentences and appears to be comfortable. He is sitting up on the side of the bed and demonstrates very good strength. PAST MEDICAL HISTORY: 1. Non-small cell lung cancer, stage 4. 2. Coronary artery disease. 3. Hypertension. 4. Atrial fibrillation. PAST SURGICAL HISTORY: 1. Coronary artery bypass graft x3 vessels. 2. Aortic valve replacement. 3. Resection of small bladder. 4. Appendectomy. 5. Excision of cataract, bilateral. ALLERGIES: NO KNOWN DRUG ALLERGIES. MEDICATIONS: List of his inpatient medications was reviewed. No specific updates were made at this time. SOCIAL HISTORY: He quit smoking in 1984. He does not use any alcohol or illicit drugs. He has no exposure to chemicals, dust, asbestos, or tuberculosis. Prior to quitting smoking, he had a greater than 40 pack-year history of smoking. FAMILY HISTORY: Noncontributory. REVIEW OF SYSTEMS: General, head, ears, eyes, nose, throat, cardiovascular, respiratory, GI, , musculoskeletal, neurologic, and skin are negative expect as mentioned in the HPI. PHYSICAL EXAMINATION: VITAL SIGNS: Afebrile, pulse 97, blood pressure 113/50, respirations 18, and saturation 97%, currently on 30% FiO2 delivered via BiPAP at 10/5. GENERAL: The patient is awake and alert. He is in mild respiratory distress. HEENT: Normocephalic and atraumatic. Sclerae white. Conjunctivae pink. Oral mucosa is moist without lesions. LUNGS: Decent air entry. There are crackles present in the bibasilar region. There is decreased air entry at the right base. Mild prolonged expiratory phase present, though I do not hear any wheezing. HEART: Tachycardic. Irregular. ABDOMEN: Soft, nontender, and nondistended. Bowel sounds are positive. MUSCULOSKELETAL: No cyanosis or clubbing. There is diffuse 1 to 2+ pitting throughout. NEUROLOGIC: Grossly nonfocal. LABORATORY DATA: WBC 0.2, hemoglobin 8.6, platelets 17,000, and neutrophils are 90%. INR 3.2. A pH of 7.39, pCO2 of 43, and pO2 of 54. Basic metabolic profile is unremarkable. Liver function studies are also nearly unremarkable. Troponin is downtrending to 0.82 and BNP 313, which is in historic high. Influenza A and B are unremarkable. ASSESSMENT: 1. Acute hypoxic respiratory failure. 2. 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 3. Atrial fibrillation with rapid ventricular response. 4. Pleural effusion. 5. Neutropenic fever. 6. Healthcare-associated pneumonia, possible. 7. Non small cell lung cancer. DISCUSSION AND PLAN: We will do bedside ultrasound. If there is, in fact collection of fluid there, thoracentesis will be performed. I will keep him on his empiric antibiotic coverage for the time being and tailor our therapy to what we discover. We will work on rate control, and once his blood pressures firm up a touch, we will start to diurese him through time. Pulmonary/Critical Care will continue to follow closely. 70 minutes have been devoted to this patient in various activities. I personally reviewed all imaging studies and laboratory data noted within this document. For fifty percent of this time, I was interacting with the patient at the bedside or coordinating care with the care team. For the remainder of the time I was immediately available to the patient in the hospital unit. Job ID: [id number] MTDD
--- NOTE | 2019-07-25 19:41 | OP ---
DATE OF PROCEDURE: 07/25/2019 SERVICE: Pulmonary Medicine. PROCEDURE PERFORMED: Right-sided pleural drainage with catheter insertion under ultrasound guidance. CONSENT: The risks and benefits of the procedure were discussed with the patient. All questions were answered and alternative options explained. MEDICATIONS USED: Lidocaine 1% without epinephrine, 8 mL. PREOPERATIVE DIAGNOSES: 1. Pleural effusion, not otherwise specified. 2. Acute hypoxic respiratory failure. POSTPROCEDURE DIAGNOSES: 1. Pleural effusion, not otherwise specified. 2. Acute hypoxic respiratory failure. DESCRIPTION OF PROCEDURE: Time-out was performed by the procedure team and patient. The patient was positively identified using name and date of . Procedure site was marked. Vital sign monitoring was accomplished by noninvasive hemodynamic monitoring, pulse oximetry, and telemetry. In the seated position, the right posterior hemothorax was examined using ultrasound probe. The diaphragm and pleural fluid were easily identified. The skin was prepped and draped in sterile fashion and anesthetized with 1% lidocaine without epinephrine. A finder needle was inserted in the pleural space with return of serosanguineous fluid. The pleural drainage catheter was then inserted in the same location. A total quantity of 1200 mL of the same pleural fluid was withdrawn by syringe pump technique. A sample was sent for analysis. Evacuation of the fluid terminated because the fluid stopped coming. At the end of the procedure, estimated pleural pressure, measured by manometry, was -14 cm of pleural fluid. The intact catheter was withdrawn on exhalation and a sterile dressing was applied. The patient had stable vitals throughout the entire procedure. ESTIMATED BLOOD LOSS: 2 mL. COMPLICATIONS: None. Job ID: [id number]
[2019-07-26] MEDS: Cefepime 2 GM in Sodium Chloride 0.9% 100 ML IVPB SCH ×2 (00:14→13:42)
[2019-07-26 04:20] LABS: INR-International Normal Ratio 2.5; Prothrombin Time 26.9 SEC (12.0-14.7)
[2019-07-26 04:26] LABS: Anion Gap 11 mmol/L (10-20); BUN (Urea Nitrogen) 23 mg/dL (8.4-25.7); Calc. Creatinine Clearance 66 mL/min (70-130); Calcium 8.8 mg/dL (7.8-10.44); Carbon Dioxide 30 mmol/L (23-31); Chloride 105 mmol/L (98-107); Estimated GFR-MDRD 76; Glucose 137 mg/dL (83-110); Potassium 3.4 mmol/L (3.5-5.1); Sodium 143 mmol/L (136-145)
[2019-07-26 04:58] LABS: Hemoglobin 8.1 g/dL (14.0-18.0); Mean Corpuscular HGB CONC 30.7 g/dL (32.0-36.0); Mean Corpuscular Hemoglobin 22.1 pg (27.0-31.0); Mean Corpuscular Volume 72.1 fL (78.0-98.0); Platelet Count 8 thou/uL (130-400); RBC Distribution Width 15.9 % (11.5-14.5); Red Blood Cell (RBC) Count 3.65 mill/uL (4.70-6.10); White Blood Cell (WBC) Count 0.8 thou/uL (4.8-10.8)
[2019-07-26 05:01] LABS: Band 8 % (5-11); Crenated RBC SLIGHT = 1-5 cells (100X) (None Seen); Elliptocytes MODERATE= 6-15 cells (100X) (0-1/hpf); Lymphocytes 68 % (21-51); MDiff Complete? YES; Monocytes 20 % (0-10); Neutrophil 4 % (42-75); Platelet Morphology Comment Appears Decreased
[2019-07-26] MEDS: Vancomycin HCl 1.25 GM in Sodium Chloride 0.9% 250 ML 250 ML IVPB SCH (05:47)
--- NOTE | 2019-07-26 10:43 | PRG ---
DATE OF SERVICE: 07/26/2019 SERVICE: Pulmonary Medicine. INTERVAL HISTORY: The patient is doing fine overnight from respiratory standpoint. Oxygen requirements have improved a little bit. He is tolerating a break off the BiPAP beautifully. He still likes to use it tonight because it helps him sleep. He underwent a thoracentesis yesterday and since then, his oxygen requirements actually improved dramatically. Otherwise, there has been no change to his condition. PHYSICAL EXAMINATION: VITAL SIGNS: Afebrile. Pulse 122, blood pressure 107/70, respirations 33, saturation 95%, currently on 30% FiO2 delivered via high-flow nasal cannula. HEENT: Normocephalic and atraumatic. Sclerae white. Conjunctivae pink. Oral mucosa is moist without lesions. LUNGS: Wonderful air entry. There is some dependent crackles present but improved air entry at the right base. No prolonged expiratory phase or wheezing is appreciated. HEART: Normal rate. Regular. ABDOMEN: Soft. Nontender. Nondistended. Bowel sounds positive. MUSCULOSKELETAL: No cyanosis or clubbing. 1 to 2+ pitting is present in bilateral lower extremities. NEUROLOGIC: Grossly nonfocal. LABORATORY DATA: WBC 0.8, hemoglobin 8.1, platelets 8. INR 2.5 and gently downtrending. PH 7.39, pCO2 of 42, and pO2 of 54. Basic metabolic profile is otherwise unremarkable except for a potassium of 3.4. Troponin is downtrending to 0.8. Pleural fluid LDH is quite elevated. 74% of the cells were nonhematologic. Glucose was elevated, total protein 3.2. Blood cultures x2 are negative. Body fluid culture is negative to date. No organisms were identified. Influenza A and B were negative. ASSESSMENT: 1. Acute hypoxic respiratory failure. 2. Pleural effusion, serosanguineous exudate. 3. 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 4. Atrial fibrillation with rapid ventricular response. 5. Neutropenic fever, resolved. 6. Healthcare-associated pneumonia, possible. DISCUSSION AND PLAN: We will continue our empiric antibiotics. Potassium will be replaced. I will give him an additional dose of Lasix. We will continue working on rate control. Critical Care will continue to follow very closely while the patient remains inhouse. High-flow nasal cannula will be weaned and hopefully we will get to nasal cannula today. We will continue our mobilization efforts. I will get him into a chair 3 times daily and involve Physical Therapy. From my perspective, he is stable for transition out of the ICU to the intermediate care unit or telemetry. Job ID: [id number]
--- NOTE | 2019-07-26 11:47 | CON ---
DATE OF CONSULTATION: 07/25/2019 REASON FOR CONSULTATION: Neutropenic fever with pneumonia. HISTORY OF PRESENT ILLNESS: This is an 88-year-old with history of coronary artery disease, aortic valve replacement with metallic valve on chronic Coumadin and recently diagnosed with large cell neuroendocrine right lung cancer, which has been demonstrated to be metastatic of lymph nodes in the liver recently by the PET scan. The patient has been on chemotherapy with [employer]-16, carboplatin and corticosteroids, and he is admitted overnight after development of general malaise, fever, mental status changes and mechanical fall off his chair due to weakness. The patient normally has O2 supplementation in the home setting and [place] by himself, [place]. Last chemotherapy was about a week before this evaluation. On arrival, his temperature was 101.8. He was having a little bit of coughing spells and a little bit of swelling of the legs. No headaches. No visual symptoms, sore throat, odynophagia or dysphagia. No vomiting. No hematemesis or melena. No back pain. No abdominal pain. No genitourinary symptoms. PAST MEDICAL HISTORY: Coronary artery disease with bypass graft surgery, aortic stenosis with aortic valve replacement with metallic valve on chronic Coumadin, hypothyroidism, hyperlipidemia, and hypertension. PAST SURGICAL HISTORY: Ischemic bowel with partial resection, AAA with presumed repair in the past, appendectomy, and the other surgeries as mentioned above. SOCIAL HISTORY: Former smoker, quit many years ago. Lives alone in [place] with family members close by. ALLERGIES: NONE. CURRENT MEDICATIONS: 1. P.r.n. meds. 2. Inhalers. 3. Cefepime. 4. Vancomycin. PHYSICAL EXAMINATION: VITAL SIGNS: T-max 99.4, blood pressure 104/48, , heart rate 91, respiratory rate 17 to 34, O2 saturation 91. The patient is on BiPAP mask. Recently, the patient had a port inserted in the right subclavian location and has not had any problems with that thus far. SKIN: Otherwise, no Collado catheter. A few areas of bruising in the appendicular structures. No lymphadenopathy. HEENT: Alopecia. Ocular movements appear to be conjugate, but could not test them fully due to his mental state. Pupils are constricted and symmetric. Pale conjunctivae. Oral cavity not fully examined because of BiPAP mask. LUNGS: Diminished breath sounds in the right hemithorax. No wheezing. HEART: S1 and S2, regular rate. No S3 or S4. ABDOMEN: Soft, not distended or tender. No ascites. No bladder distention. MUSCULOSKELETAL: No joint inflammatory activity. No edema. Pulses 1+ in dorsalis pedis. Onychodystrophy. Plantar responses are indifferent. No reflexes are able to be elicited. NEUROLOGIC: He is obtunded and according to family members, he is sleeping right now, but I could not arouse him. LABORATORY DATA AND DIAGNOSTIC DATA: Sodium 141 and creatinine 1.05. Bilirubin 1.4, AST 88, ALT 94, alkaline phosphatase 149, and albumin 2.6. White cell count 0.2, hemoglobin 8.6, MCV 72, platelets 17, 90% lymphocytes, no neutrophils were reported. INR 3.2. PH of 7.39, pCO2 of 42, and pO2 of 54. Troponin 0.113 and 0.125 and 0.082. Lactic acid 3.9. Microbiology, all the sets of culture submitted thus far are not yet positive or resulted . Influenza A and B screen were negative on arrival. Chest x-ray with worsening of the consolidation in the right lower lobe with a large right-sided pleural effusion, cardiomegaly, and pulmonary vascular congestion. ASSESSMENT: 1. 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 2. Neutropenia with fever, more like agranulocytosis. 3. Right lung abnormalities, which have progressed since May. DISCUSSION: The patient has had evidence of postobstructive pneumonia in the past and now he has developed neutropenia associated with chemotherapy. With this type of chemotherapy, I would expect a fairly quick resolution of the neutropenia. It has been a week now, and any time soon, one would expect recovery of the neutrophil count to start developing. This would be critical for clinical outcome. I do not know if he would be eligible for growth factor administration. I do not think that those really alter the prognosis in this situation. Continue broad spectrum coverage with the current antimicrobials. Regarding sampling of the pleural area, I do not think he is eligible right now due to the coagulopathy and that may have to be considered in the future depending on clinical course. He wants to try aggressive management for the time being at least initially, he may change his directives depending on response to initial therapy. Continue monitoring cultures. If he remains febrile, we will have to add antifungal coverage as well. Colonization of the port is always a concern, we will reconsider that depending on results of blood cultures. An intraabdominal inflammatory process is not apparent. The liver function abnormalities are either related to CHF with hepatic congestion or the underlying malignancy involvement. Job ID: [id number]
--- NOTE | 2019-07-26 12:09 | RAD ---
XR Chest 1 View Portable History: Follow-up thoracentesis Comparison: Radiograph prior day Findings: Size decreased right pleural effusion. No pneumothorax. Port catheter tip inferior SVC. Right hilar mass. Impression: No significant pneumothorax post thoracentesis.
[2019-07-26] MEDS ORDERED: Furosemide 40 MG/4 ML VIAL SLOW IVP SCH (12:15)
[2019-07-26] MEDS ORDERED: Digoxin 0.25 MG TAB PO SCH (12:15)
[2019-07-26] MEDS ORDERED: Metoprolol Tartrate 50 MG TAB PO SCH (12:15)
[2019-07-26] MEDS: Potassium Chloride 20 MEQ TAB PO SCH ×2 (12:44→17:36)
--- NOTE | 2019-07-26 13:27 | PDOC.MOPN ---
Interval History: feeling better, up in chair now, off BiPAP. he is c/o slight LE swelling, stil lweak with some SOB - Vital Signs Vital Signs: Vital Signs (12 hours) Temp Pulse Pulse Ox 07/26/19 12:44 127 H 07/26/19 08:00 97.2 F L 94 L 07/26/19 07:38 95 07/26/19 04:00 96.7 F L Weight Weight 181 lb 14.102 oz Most Recent Monitor Data Heart Rate from ECG 112 NIBP 120/68 NIBP BP-Mean 85 Respiration from ECG 25 SpO2 93 - Physical Exam General: Alert, Oriented x3 HEENT: Atraumatic Lungs: Other (kirsten wheezes) Abdomen: Normal bowel sounds Extremities: Other (trace edema kirsten) Neurological: Normal speech Psych/Mental Status: Mental status NL - Labs Result Diagrams: 07/26/19 03:31 07/26/19 03:31 Lab results: Laboratory Results - last 24 hr 07/26/19 03:31: PT 26.9 H, INR 2.5 07/26/19 03:31: WBC 0.8 L*, RBC 3.65 L, Hgb 8.1 L, Hct 26.3 L, MCV 72.1 L, MCH 22.1 L, MCHC 30.7 L, RDW 15.9 H, Plt Count 8 L*, MPV TNP, Neutrophils % (Manual ) 4 L, Band Neuts % (Manual) 8, Lymphocytes % (Manual) 68 H, Monocytes % (Manual ) 20 H, Neutrophils # Not Reportable, Lymphocytes # Not Reportable, Plt Morphology Comment Appears Decreased L, Crenated Cell SLIGHT = 1-5 cells, Elliptocytes MODERATE= 6-15 cells H 07/26/19 03:31: Sodium 143, Potassium 3.4 L, Chloride 105, Carbon Dioxide 30, Anion Gap 11, BUN 23, Creatinine 0.94, Estimated GFR (MDRD) 76, Glucose 137 H, Calcium 8.8 07/25/19 15:30: Fluid Source Thoracentesis Fluid, Fluid Tube Number EDTA, Fluid Color Red, Fluid Clarity Cloudy/Turbid H, Fluid WBC 714, Fluid RBC 214021, Fluid Seg Neutrophil % Not Reportable, Fluid Lymphocytes % 26, Non- Hematological % 74, Fluid Comment Note: 07/25/19 15:30: Pleural Total Protein 3.2, Pleural LDH 905, Pleural Glucose 228 A/P - Problem (1) Lung cancer Current Visit: Yes Code(s): C34.90 - MALIGNANT NEOPLASM OF UNSP PART OF UNSP BRONCHUS OR LUNG Status: Acute (2) Pneumonia Current Visit: No Code(s): J18.9 - PNEUMONIA, UNSPECIFIED ORGANISM Status: Acute (3) CHF (congestive heart failure) Current Visit: No Code(s): I50.9 - HEART FAILURE, UNSPECIFIED Status: Chronic (4) CKD (chronic kidney disease), stage III Current Visit: No Code(s): N18.3 - CHRONIC KIDNEY DISEASE, STAGE 3 (MODERATE) Status: Chronic (5) COPD (chronic obstructive pulmonary disease) Current Visit: No Status: Chronic - Plan Plan: 1. compression stockings 2. transfuse plts 3. cont abx 4. out of ICU if possible
[2019-07-26 16:08] LABS: Hemoglobin 8.3 g/dL (14.0-18.0); Platelet Count 54 thou/uL (130-400)
--- NOTE | 2019-07-26 19:44 | PDOC.HOSPP ---
- Subjective Encounter Date: 07/26/19 Encounter Time: 11:00 Subjective: overnight, thoracentesis performed by Dr. Merritt, 1.2L of serosanguinous fluid removed. This morning, sitting comfortably in chair and feeling better overall. Breathing improved. No complaints - Objective Vital Signs & Weight: Vital Signs (12 hours) Temp Pulse Pulse Resp BP Pulse Ox 07/26/19 16:00 98.1 F 07/26/19 14:21 98.1 F 85 24 H 148/72 H 95 07/26/19 14:06 97.2 F L 24 H 07/26/19 12:44 127 H 07/26/19 12:00 97.6 F 07/26/19 08:00 97.2 F L 94 L Weight Admit Weight 181 lb 14.102 oz Weight 181 lb 14.102 oz Most Recent Monitor Data Heart Rate from ECG 98 NIBP 135/64 NIBP BP-Mean 87 Respiration from ECG 27 SpO2 97 I&O: 07/25/19 07/26/19 07/27/19 06:59 06:59 06:59 Intake Total 521 1270 Output Total 925 1020 Balance -404 250 Result Diagrams: 07/26/19 16:00 07/26/19 03:31 Hospitalist ROS - Review of Systems Constitutional: denies: fever, chills, sweats, weakness, malaise, other Respiratory: reports: cough, hemoptysis, SOB with excertion, sputum. denies: dry, shortness of breath, pleuritic pain, wheezing Cardiovascular: denies: chest pain, palpitations, orthopnea, paroxysmal noc. dyspnea, edema, light headedness, other Gastrointestinal: denies: nausea, vomiting, abdominal pain, diarrhea, constipation, melena, hematochezia Genitourinary: denies: hematuria Neurological: denies: weakness, numbness, incoordination, change in speech - Medication Medications: Active Medications Generic Name Dose Route Start Last Admin Trade Name Freq PRN Reason Stop Dose Admin Cefepime HCl 2 gm/ Sodium 100 mls @ 200 mls/hr 07/25/19 12:00 07/26/19 13:42 Chloride IVPB 100 mls Q12H MATTY Administration Vancomycin HCl 1.25 gm/ Sodium 250 mls @ 166.667 mls/hr 07/26/19 06:00 05:47 Chloride IVPB 250 mls 0600 MATTY Administration Sodium Chloride 10 ml 07/25/19 21:00 07/26/19 10:06 Flush - Normal Saline IVF 10 ml Q12HR MATTY Administration - Exam General Appearance: NAD, awake alert Neck: no JVD Heart: normal peripheral pulses, irregular (telemetry showing atrial fibrillation with RVR up to 130s especially when conversing) Respiratory: no wheezes, no rales, no ronchi, normal chest expansion, no tachypnea Respiratory - other findings: on HFNC FIO2 30% high 90s; tachypnic when conversing, coughs bloody sputum Gastrointestinal: soft, non-tender, non-distended, normal bowel sounds Extremities: 2+ LE edema Extremities - other findings: b/l equal up to knee level Neurological: no focal deficits, no new deficit. negative: speech deficit Psychiatric: normal affect, normal behavior, A&O x 3 Hosp A/P - Plan * Stage 4 lung cancer; serosanguinous pleural effusion * pleural fluid BG similar to serum glucose, RBC levels significantly elevated ; likely related to tumor-related hemorrrhage; less likely parapneumonic effusion/empyema * patient complained about worsening hemoptysis this morning, Plt level 8 * oxygen demand improving * pending gram stain and cultures * * will transfuse plt * follow H&H, plt * wean off HFNC and Bipap * transitioned to IMCU * neutropenic fever * possible sources pneumonia, mediport (though no superficial signs of infection) * infectious workup NTD * * will continue same antibiotics as per ID pending further culture finalization * * atrial fibrillation with RVR * up to 130s when conversing * HD stable * expecting improvement with continued rate control, improvement in pulmonary congestion with lasix, and treatment of infection. * * will continue metoprolol and digoxin * * disposition/PPx * full code * GI PPx : no Ix * DVT PPx: patient ambulating, no Ix
[2019-07-26] MEDS: Metoprolol Tartrate 50 MG TAB PO SCH (19:53)
[2019-07-27] MEDS: Cefepime 2 GM in Sodium Chloride 0.9% 100 ML IVPB SCH ×2 (00:08→13:49)
[2019-07-27 04:03] LABS: INR-International Normal Ratio 1.8; Prothrombin Time 20.4 SEC (12.0-14.7)
[2019-07-27 04:10] LABS: Digoxin 0.79 ng/mL (0.8-2.0)
[2019-07-27 04:12] LABS: Anion Gap 16 mmol/L (10-20); BUN (Urea Nitrogen) 31 mg/dL (8.4-25.7); Calc. Creatinine Clearance 62 mL/min (70-130); Carbon Dioxide 26 mmol/L (23-31); Chloride 103 mmol/L (98-107); Estimated GFR-MDRD 71; Glucose 131 mg/dL (83-110); Magnesium 1.9 mg/dL (1.6-2.6); Potassium 4.5 mmol/L (3.5-5.1); Sodium 140 mmol/L (136-145)
[2019-07-27 04:22] LABS: Phosphorus 1.7 mg/dL (2.3-4.7)
--- NOTE | 2019-07-27 05:38 | PRG ---
DATE OF SERVICE: 07/26/2019 SUBJECTIVE: The patient is sitting by the bedside. He is feeling better, still tachypneic, little bit of sensation of fullness in the stomach, but no pain actually. He is voiding on his own and had a formed bowel movement x2 early this morning. OBJECTIVE: VITAL SIGNS: T-max is 97.6, BP 150/90, pulse 97, respirations 25, O2 saturation 91% to 94%. GENERAL: Still looks ill, but better than when I last saw him. LUNGS: Diminished breath sounds in the right side base but remainder aspect of his lungs sound fairly clear. HEART: S1 and S2, regular rate. ABDOMEN: Soft, mild to moderately distended, but not tender. No ascites. No bladder distention. EXTREMITIES: No edema. Moves extremities equally. NEUROLOGIC: He is awake, follows commands, still a little bit with difficulty in speaking, but is able to pronounce words without major difficulty. LABORATORY DATA: White cell count is up to 0.8, we see some neutrophils now as he has about 100 neutrophils which is much better than previously. The kidneys are holding well. His creatinine is 0.94, potassium is 3.4. He had a thoracentesis done, which showed 7-14 WBCs, but predominance of RBCs, 74% non-hematological cells, and 26% lymphocytes. Total protein is 3.2 and serum albumin is 2.6, appears to be an exudative effusion. I believe the pathology is pending at this point in time. Microbiology with pending pleural fluid cultures. Blood cultures, no growth thus far. He is currently receiving the usual combination with cefepime and vancomycin. 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 We see improvement in the white cell count and this should continue in the upcoming days, which would be the critical factor in the patient's improvement. Looks like he is going to be transferred to [facility]. Job ID: [id number] [facility]
[2019-07-27] MEDS: Vancomycin HCl 1.25 GM in Sodium Chloride 0.9% 250 ML 250 ML IVPB SCH ×3 (05:43→08:36)
[2019-07-27] MEDS: Digoxin 0.125 MG TAB PO SCH (08:11)
[2019-07-27] MEDS: Metoprolol Tartrate 50 MG TAB PO SCH ×2 (08:12→21:17)
[2019-07-27] MEDS: Vancomycin HCl 1.75 GM in Sodium Chloride 0.9% 500 ML IVPB SCH ×2 (08:13→08:36)
[2019-07-27 08:21] LABS: Band 42 % (5-11); Crenated RBC SLIGHT = 1-5 cells (100X) (None Seen); Hypochromia SLIGHT = 6-15 cells (100X) (0-5/hpf); Lymphocytes 20 % (21-51); MDiff Complete? YES; Mean Corpuscular HGB CONC 29.8 g/dL (32.0-36.0); Mean Corpuscular Hemoglobin 21.8 pg (27.0-31.0); Mean Corpuscular Volume 73.3 fL (78.0-98.0); Mean Platelet Volume 5.9 fL (7.4-10.4); Metamyelocyte 5 % (0-0); Monocytes 8 % (0-10); Myelocyte 1 % (0-0); Neutrophil 24 % (42-75); Ovalocytes MODERATE= 6-15 cells (100X) (0-1/hpf); Platelet Count 45 thou/uL (130-400); Poikilocytosis SLIGHT = 6-15 cells (100X) (0-5/hpf); RBC Distribution Width 16.2 % (11.5-14.5); Red Blood Cell (RBC) Count 4.12 mill/uL (4.70-6.10); White Blood Cell (WBC) Count 8.6 thou/uL (4.8-10.8)
--- NOTE | 2019-07-27 12:24 | PRG ---
DATE OF SERVICE: 07/27/2019 SERVICE: Pulmonary Medicine. INTERVAL HISTORY: The patient is doing poorly from respiratory standpoint. His work of breathing has increased a little bit. That being said, he is only on 1 to 2 L nasal cannula. His saturations suggest that he is oxygenating just fine, but he does feel like he has increased work of breathing, and complains of dyspnea. Otherwise, there has been no interval change to his condition. PHYSICAL EXAMINATION: VITAL SIGNS: Afebrile, pulse 84, blood pressure 136/74, respirations 17, saturation 91%, currently on 2 L nasal cannula. GENERAL: The patient is awake and alert, in no apparent distress. No prolonged expiratory phase or wheezing. LUNGS: Extensive crackling is present. HEART: Normal rate, regular. ABDOMEN: Soft, nontender, nondistended. Bowel sounds are positive. MUSCULOSKELETAL: No cyanosis or clubbing. There is 2+ pitting in the bilateral lower extremities. NEUROLOGIC: Grossly nonfocal. LABORATORY DATA: WBC 8.6, hemoglobin 9.0, platelets 45,000. Neutrophil count is 24% on top of 42% bands. INR 1.8. Basic metabolic profile is otherwise unremarkable. Potassium has improved, phosphorus is minimally low. Magnesium falls within normal limits currently. Thoracentesis fluid has significant LDH present. All cultures remain negative to date. ASSESSMENT: 1. Acute hypoxic respiratory failure. 2. Pleural effusion, serosanguineous exudate. 3. 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 4. Atrial fibrillation with rapid ventricular rate, currently rate controlled. 5. Neutropenic fever, resolved. 6. Healthcare-associated pneumonia, suspected. DISCUSSION AND PLAN: We will initiate doses of diuretics. We will watch his electrolytes through time including his magnesium and potassium. We will provide him with BiPAP on as needed basis. He remained stable for transition out of the ICU to the intermediate care unit, but I think that he would be at high risk to put on the floor. Job ID: [id number]
[2019-07-27] MEDS: Sodium Phosphate 15 MMOL in Sodium Chloride 0.9% 250 ML 250 ML IVPB SCH ×2 (13:16→21:17)
[2019-07-27] MEDS: Furosemide 40 MG/4 ML VIAL SLOW IVP SCH (13:16)
--- NOTE | 2019-07-27 15:04 | PDOC.HOSPP ---
- Subjective Encounter Date: 07/27/19 Encounter Time: 10:00 Subjective: no overnight events. Satting mid 90s on 4-5L NC however increased work of breathing especially when supine and ambulating/conversing. Complains of shortness of breath and endorses some improvement in coughing up blood. - Objective Vital Signs & Weight: Vital Signs (12 hours) Temp Pulse Pulse Ox 07/27/19 12:00 97.8 F 07/27/19 08:11 127 H 07/27/19 08:00 95 07/27/19 07:00 97.0 F L 07/27/19 04:00 97.6 F Weight Admit Weight 181 lb 14.102 oz Weight 181 lb 14.102 oz Most Recent Monitor Data Heart Rate from ECG 88 NIBP 134/76 NIBP BP-Mean 95 Respiration from ECG 22 SpO2 94 I&O: 07/26/19 07/27/19 07/28/19 06:59 06:59 06:59 Intake Total 521 1450 360 Output Total 925 1780 500 Balance -404 -330 -140 Result Diagrams: 07/27/19 03:42 07/27/19 03:42 Hospitalist ROS - Review of Systems Constitutional: denies: fever, chills, sweats, weakness, malaise, other Respiratory: reports: cough, shortness of breath, hemoptysis, sputum. denies: dry, SOB with excertion, pleuritic pain, wheezing, other Cardiovascular: reports: edema. denies: chest pain, palpitations, orthopnea, paroxysmal noc. dyspnea, light headedness, other Gastrointestinal: denies: nausea, vomiting, abdominal pain, diarrhea, constipation, melena, hematochezia, other - Medication Medications: Active Medications Generic Name Dose Route Start Last Admin Trade Name Freq PRN Reason Stop Dose Admin Digoxin 0.125 mg 07/27/19 09:00 07/27/19 08:11 Lanoxin PO 0.125 mg DAILY MATTY Administration Furosemide 40 mg 07/27/19 14:00 07/27/19 13:16 Lasix SLOW IVP 40 mg 0600,1400 MATTY Administration Cefepime HCl 2 gm/ Sodium 100 mls @ 200 mls/hr 07/25/19 12:00 07/27/19 13:49 Chloride IVPB 100 mls Q12H MATTY Administration Vancomycin HCl 1.75 gm/ Sodium 500 mls @ 250 mls/hr 07/27/19 08:00 07/27/19 08:36 Chloride IVPB 500 mls 0800 MATTY Administration Sodium Phosphate 15 mmol/ 255 mls @ 42.5 mls/hr 07/27/19 13:00 07/27/19 13:16 Sodium Chloride IVPB 07/28/19 00:59 255 mls Q6H MATTY Administration Metoprolol Tartrate 50 mg 07/26/19 21:00 07/27/19 08:12 Lopressor PO 50 mg BID MATTY Administration Sodium Chloride 10 ml 07/25/19 21:00 07/27/19 08:37 Flush - Normal Saline IVF 10 ml Q12HR MATTY Administration - Exam General Appearance: NAD, awake alert General - other findings: sitting comfortably in chair Neck: no JVD Heart: irregular Heart - other findings: HR increases to 120s-130s when conversing Respiratory - other findings: inspiratory crackles and rhonchi mostly on right Gastrointestinal: soft, non-tender, non-distended, normal bowel sounds, no bruit Extremities: 2+ LE edema Extremities - other findings: unchanged Psychiatric: normal affect, normal behavior, A&O x 3 Hosp A/P - Plan * Stage 4 lung cancer; serosanguinous pleural effusion * pleural fluid BG similar to serum glucose, RBC levels significantly elevated ; likely related to tumor-related hemorrrhage; less likely parapneumonic effusion/empyema * oxygen demand improving however tachypnic, accessory muscle use when conversing on 4L NC * respiratory and pleural fluid Cx NTD * responded appropriately to platelet transfusion ~ 50k * * Lasix due to pulmonary congestion, edema (moderate aortic stenosis, inflammation due to tumor/pneumonia, 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 * * will continue metoprolol and digoxin * holding anticoagulation due to hemoptysis * * disposition/PPx * IMCU * full code * GI PPx : no Ix * DVT PPx: patient ambulating, no Ix
[2019-07-28] MEDS: Cefepime 2 GM in Sodium Chloride 0.9% 100 ML IVPB SCH ×2 (01:54→13:16)
[2019-07-28 04:00] LABS: Prothrombin Time 22.4 SEC (12.0-14.7)
[2019-07-28 04:14] LABS: Anion Gap 12 mmol/L (10-20); BUN (Urea Nitrogen) 25 mg/dL (8.4-25.7); Calc. Creatinine Clearance 75 mL/min (70-130); Calcium 8.4 mg/dL (7.8-10.44); Carbon Dioxide 33 mmol/L (23-31); Chloride 104 mmol/L (98-107); Estimated GFR-MDRD 89; Glucose 108 mg/dL (83-110); Magnesium 1.7 mg/dL (1.6-2.6); Phosphorus 2.6 mg/dL (2.3-4.7); Potassium 3.3 mmol/L (3.5-5.1); Sodium 146 mmol/L (136-145)
[2019-07-28 04:57] LABS: Hemoglobin 8.8 g/dL (14.0-18.0); Mean Corpuscular Hemoglobin 22.2 pg (27.0-31.0); Mean Corpuscular Volume 71.8 fL (78.0-98.0); Mean Platelet Volume 7.2 fL (7.4-10.4); Platelet Count 46 thou/uL (130-400); Red Blood Cell (RBC) Count 3.97 mill/uL (4.70-6.10); White Blood Cell (WBC) Count 15.4 thou/uL (4.8-10.8)
[2019-07-28] MEDS ORDERED: Magnesium 2 GM/50 ML 2 GM in Premix Bag 1 BAG IVPB PRN (05:33)
[2019-07-28] MEDS ORDERED: Magnesium Oxide 400 MG TAB PO PRN ×2 (05:33)
[2019-07-28] MEDS ORDERED: Potassium Chloride 20 MEQ TAB PO PRN (05:33)
[2019-07-28] MEDS ORDERED: PHOS-NAK 1 PKT PACK PO PRN ×2 (05:33)
[2019-07-28] MEDS ORDERED: Potassium Chloride 40 MEQ in Sodium Chloride 0.9% 250 ML 250 ML IVPB PRN (05:33)
[2019-07-28] MEDS ORDERED: Potassium Chloride 40 MEQ in Premix Bag 1 BAG IVPB PRN (05:33)
[2019-07-28] MEDS ORDERED: Potassium Phosphate 9 MMOL in Sodium Chloride 0.9% 100 ML IVPB PRN (05:33)
[2019-07-28] MEDS ORDERED: CCU ELECTROLYTE REPLACEMENT PROTOCOL FS PRN (05:33)
[2019-07-28] MEDS ORDERED: Potassium Phosphate 15 MMOL in Sodium Chloride 0.9% 250 ML 250 ML IV PRN (05:33)
[2019-07-28] MEDS ORDERED: Potassium Phosphate 12 MMOL in Sodium Chloride 0.9% 250 ML 250 ML IV PRN (05:33)
[2019-07-28] MEDS: Furosemide 40 MG/4 ML VIAL SLOW IVP SCH ×2 (06:35→13:16)
--- NOTE | 2019-07-28 08:25 | PDOC.MOPN ---
Interval History: Pt has no appetite, not eating well, no N/V. SOB and hemoptysis are stable. SpO2 96-99% on 5L NC but drops to 89% when conversing. - Vital Signs Vital Signs: Vital Signs (12 hours) Temp Pulse 07/28/19 07:09 98.0 F 07/28/19 03:41 97.5 F L 07/28/19 01:26 79 07/27/19 23:30 98.2 F Weight Admit Weight 181 lb 14.102 oz Weight 171 lb 12.8 oz Most Recent Monitor Data Heart Rate from ECG 76 NIBP 134/57 NIBP BP-Mean 82 Respiration from ECG 18 SpO2 100 - Physical Exam General: Alert, Oriented x3, Cooperative HEENT: Atraumatic, EOMI Lungs: Other (anterior lung field breath sounds mostly clear) Cardiovascular: Regular rate Abdomen: Soft, No tenderness - Labs Result Diagrams: 07/28/19 03:27 07/28/19 03:27 Lab results: Laboratory Results - last 24 hr 07/28/19 03:27: WBC 15.4 H, RBC 3.97 L, Hgb 8.8 L, Hct 28.5 L, MCV 71.8 L, MCH 22.2 L, MCHC 31.0 L, RDW 16.0 H, Plt Count 46 L, MPV 7.2 L 07/28/19 03:27: Phosphorus 2.6 07/28/19 03:27: Sodium 146 H, Potassium 3.3 L, Chloride 104, Carbon Dioxide 33 H , Anion Gap 12, BUN 25, Creatinine 0.82, Estimated GFR (MDRD) 89, Glucose 108, Calcium 8.4, Magnesium 1.7 07/28/19 03:27: PT 22.4 H, INR 2.0 A/P - Problem (1) Lung cancer Current Visit: Yes Code(s): C34.90 - MALIGNANT NEOPLASM OF UNSP PART OF UNSP BRONCHUS OR LUNG Status: Acute (2) Pneumonia Current Visit: No Code(s): J18.9 - PNEUMONIA, UNSPECIFIED ORGANISM Status: Acute - Plan Plan: start Megace for appetite stimulation Cont antibiotics and diuretics transfuse plts < 10 restart Warfarin once platelets > 50 cont PT and OOB to chair
[2019-07-28] MEDS: Digoxin 0.125 MG TAB PO SCH (09:26)
[2019-07-28] MEDS: Vancomycin HCl 1.75 GM in Sodium Chloride 0.9% 500 ML IVPB SCH (09:26)
[2019-07-28] MEDS: Megestrol Acetate 800 MG/20 ML UDCUP PO SCH (09:27)
[2019-07-28] MEDS: Metoprolol Tartrate 50 MG TAB PO SCH ×2 (09:27→21:21)
[2019-07-28] MEDS ORDERED: Dextrose 5% in Water 1,000 ML IV SCH (16:30)
[2019-07-28] MEDS ORDERED: Magnesium 2 GM/50 ML 2 GM in Premix Bag 1 BAG IVPB SCH (16:30)
--- NOTE | 2019-07-28 16:43 | PRG ---
DATE OF SERVICE: 07/28/2019 SERVICE: Pulmonary Medicine. INTERVAL HISTORY: The patient is doing okay from respiratory standpoint. He is breathing comfortably. He has more strength about him. He denies any current chest discomfort, nausea or vomiting. He is bringing up a little bit of white phlegm, but otherwise, there has been no change to his condition. His white count is rebounding beautifully. PHYSICAL EXAMINATION: VITAL SIGNS: Afebrile, pulse 90, blood pressure 135/66, respirations 29, saturation 91%, currently on 4 L nasal cannula. GENERAL: The patient is awake and alert, in no apparent distress. LUNGS: Good air entry bilaterally. Minimal dependent crackles are present. HEART: Normal rate, regular. ABDOMEN: Soft. Nontender. Nondistended. Bowel sounds are positive. MUSCULOSKELETAL: No cyanosis or clubbing. There is no pitting in the bilateral lower extremities. NEUROLOGIC: Grossly nonfocal. LABORATORY DATA: WBC 15.4, hemoglobin 8.8, platelets 46,000 and gently up-trending. INR 2.0. Sodium 146, potassium 3.3, magnesium 1.7. Phosphorus falls within normal limits of 2.6. Creatinine downtrending to 0.82. Pleural fluid LDH is elevated. ASSESSMENT: 1. Acute hypoxic respiratory failure, improving. 2. Pleural effusion, serosanguineous exudate, pathology pending. 3. 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 4. Atrial fibrillation with rapid ventricular rate, currently rate controlled. 5. Neutropenic fever with resolving neutrophil count. 6. Healthcare-associated pneumonia, suspected. DISCUSSION AND PLAN: I will replace the magnesium and potassium. We will introduce a little bit of free water and back off Lasix for 24 hours. He will likely need additional doses over the next 1-2 days, although we will go slowly. Critical Care will continue to follow along. We will increase our mobilization efforts through time. Of note, all culture results today are negative. Job ID: [id number]
[2019-07-28] MEDS: Potassium Chloride 20 MEQ TAB PO SCH ×2 (17:15→21:23)
[2019-07-28] MEDS: D5 1/4 NS 1,000 ML IV SCH (17:47)
--- NOTE | 2019-07-28 19:12 | PDOC.HOSPP ---
- Subjective Encounter Date: 07/28/19 Encounter Time: 07:45 Subjective: no overnight events. Continues to use nightly Bipap but per patient, breathing as well as he can remember in recent months if not better. Endorses shortness of breath mostly at night requiring Bipap and when exerting self. Otherwise no complaints. - Objective Vital Signs & Weight: Vital Signs (12 hours) Temp Pulse Pulse Pulse BP BP Pulse Ox 07/28/19 15:26 97.0 F L 07/28/19 11:31 97.6 F 07/28/19 09:51 79 91 139/65 175/68 H 07/28/19 09:26 93 07/28/19 08:00 95 Pulse Ox Pulse Ox Pulse Ox 07/28/19 15:26 07/28/19 11:31 07/28/19 09:51 95 95 90 L 07/28/19 09:26 07/28/19 08:00 Weight Admit Weight 181 lb 14.102 oz Weight 171 lb 12.8 oz Most Recent Monitor Data Heart Rate from ECG 88 NIBP 126/60 NIBP BP-Mean 82 Respiration from ECG 26 SpO2 99 I&O: 07/27/19 07/28/19 07/29/19 06:59 06:59 06:59 Intake Total 1450 1060 990 Output Total 1780 1400 2225 Balance -016 -956 -8940 Result Diagrams: 07/28/19 03:27 07/28/19 03:27 Hospitalist ROS - Review of Systems Constitutional: denies: fever, chills, sweats, weakness, malaise, other Respiratory: reports: cough, dry, SOB with excertion. denies: shortness of breath, hemoptysis, pleuritic pain, sputum, wheezing, other Cardiovascular: reports: orthopnea, edema. denies: chest pain, palpitations, paroxysmal noc. dyspnea, light headedness, other Gastrointestinal: denies: nausea, vomiting, abdominal pain, diarrhea, constipation, melena, hematochezia, other Genitourinary: denies: hematuria Neurological: reports: weakness - Medication Medications: Active Medications Generic Name Dose Route Start Last Admin Trade Name Freq PRN Reason Stop Dose Admin Digoxin 0.125 mg 07/27/19 09:00 07/28/19 09:26 Lanoxin PO 0.125 mg DAILY MATTY Administration Cefepime HCl 2 gm/ Sodium 100 mls @ 200 mls/hr 07/25/19 12:00 07/28/19 13:16 Chloride IVPB 100 mls Q12H MATTY Administration Vancomycin HCl 1.75 gm/ Sodium 500 mls @ 250 mls/hr 07/27/19 08:00 07/28/19 09:26 Chloride IVPB 500 mls 0800 MATTY Administration Dextrose/Sodium Chloride 1,000 mls @ 100 mls/hr 07/28/19 17:45 07/28/19 17:47 D5 1/4 Ns IV 1,000 mls .Q10H MATTY Administration Megestrol Acetate 800 mg 07/28/19 09:00 07/28/19 09:27 Megace PO 800 mg DAILY MATTY Administration Metoprolol Tartrate 50 mg 07/26/19 21:00 07/28/19 09:27 Lopressor PO 50 mg BID MATTY Administration Potassium Chloride 40 meq 07/28/19 05:33 07/28/19 06:39 Klor-Con PER TUBE 40 meq ASDIR PRN Administration FOR SERUM K+ 2.5-3.5 Potassium Chloride 40 meq 07/28/19 16:30 07/28/19 17:15 K-Dur PO 07/28/19 20:31 40 meq Q4H MATTY Administration Sodium Chloride 10 ml 07/25/19 21:00 07/28/19 09:27 Flush - Normal Saline IVF 10 ml Q12HR MATTY Administration - Exam General Appearance: NAD, awake alert General - other findings: sitting comfortably in chair Respiratory: no ronchi (89% on 4L NC) Respiratory - other findings: inspiratory and expiratory wheezing, inspiratory rales in lower [place]; Gastrointestinal: soft, non-tender, non-distended, normal bowel sounds Extremities: 2+ LE edema Psychiatric: normal affect, normal behavior, A&O x 3 Hosp A/P - Plan * Stage 4 lung cancer; serosanguinous pleural effusion * pending final results of pleural microbiology, NTD; cytology pending * per patient, breathing as well as he has been in recent months if not better * * per onc will start megace * neutropenic fever (resolved) * possible sources pneumonia, mediport (though no superficial signs of infection) * infectious workup NTD * afebrile as inpatient * no longer neutropenic * gram stain -ve (pleural and respiratory); NGTD (final respiratory) * has been afebrile for 5 days; considering MASCC score > 21 and low risk for complications, will discontinue antibiotics at day 7 * * atrial fibrillation with RVR * HR now well controlled * * continue metoprolol and digoxin * per ONC, can restart warfarin once platelets > 50 * * disposition/PPx * IMCU * full code * GI PPx : no Ix * DVT PPx: patient ambulating, no Ix
[2019-07-29] MEDS: Cefepime 2 GM in Sodium Chloride 0.9% 100 ML IVPB SCH ×2 (00:38→11:40)
[2019-07-29 04:24] LABS: Prothrombin Time 22.4 SEC (12.0-14.7)
[2019-07-29 04:38] LABS: Anion Gap 9 mmol/L (10-20); BUN (Urea Nitrogen) 17 mg/dL (8.4-25.7); Calc. Creatinine Clearance 72 mL/min (70-130); Calcium 8.2 mg/dL (7.8-10.44); Carbon Dioxide 32 mmol/L (23-31); Chloride 103 mmol/L (98-107); Estimated GFR-MDRD 90; Glucose 117 mg/dL (83-110); Magnesium 1.9 mg/dL (1.6-2.6); Potassium 3.8 mmol/L (3.5-5.1); Sodium 140 mmol/L (136-145)
[2019-07-29 04:52] LABS: Band 29 % (5-11); Elliptocytes SLIGHT = 2-5 cells (100X) (0-1/hpf); Hemoglobin 8.8 g/dL (14.0-18.0); Lymphocytes 12 % (21-51); MDiff Complete? YES; Mean Corpuscular HGB CONC 30.6 g/dL (32.0-36.0); Mean Corpuscular Hemoglobin 21.9 pg (27.0-31.0); Mean Corpuscular Volume 71.5 fL (78.0-98.0); Mean Platelet Volume 7.6 fL (7.4-10.4); Metamyelocyte 10 % (0-0); Microcytosis SLIGHT = 6-15 cells (100X) (0-5/hpf); Monocytes 3 % (0-10); Myelocyte 9 % (0-0); Neutrophil 37 % (42-75); Platelet Count 64 thou/uL (130-400); Platelet Morphology Comment Appears Decreased; RBC Distribution Width 16.3 % (11.5-14.5); Red Blood Cell (RBC) Count 4.04 mill/uL (4.70-6.10); White Blood Cell (WBC) Count 23.6 thou/uL (4.8-10.8)
[2019-07-29] MEDS: D5 1/4 NS 1,000 ML IV SCH (07:28)
[2019-07-29 07:30] LABS: Vancomycin, Trough 19.1 ug/mL
[2019-07-29] MEDS: Vancomycin HCl 1.75 GM in Sodium Chloride 0.9% 500 ML IVPB SCH (08:16)
[2019-07-29] MEDS: Metoprolol Tartrate 50 MG TAB PO SCH ×2 (08:30→21:21)
[2019-07-29] MEDS: Megestrol Acetate 800 MG/20 ML UDCUP PO SCH (08:30)
[2019-07-29] MEDS: Digoxin 0.125 MG TAB PO SCH (08:30)
[2019-07-29] MEDS ORDERED: Furosemide 40 MG/4 ML VIAL SLOW IVP SCH (09:45)
--- NOTE | 2019-07-29 13:38 | PQF ---
DATE: 07-29-19 ATTN: DR. CRIS WILKES Please exercise your independent, professional judgment in responding to the clarification form. Clinical indicators are provided on the bottom of this form for your review Please check appropriate box(s) to clarify if the following diagnosis has been ruled in or ruled out: SEPSIS [ ] Ruled in diagnosis [ ] Continue to treat [ ] Resolved [ x ] Ruled out diagnosis [ ] Other diagnosis [ ] Unable to determine In addition, please specify: Present on Admission (POA): [ x ] Yes [ ] No [ ] Unable to determine For continuity of documentation, please document condition throughout progress notes and discharge summary. Thank You. CLINICAL INDICATORS - SIGNS / SYMPTOMS / LABS / RESULTS AND LOCATION IN MR: *ER DX 07-25-19: PNEUMONIA, NEUTROPENIA, PLEURAL EFFUSION, SEPSIS *H&P 07-25-19: FOUND UNRESPONSIVE, FOUND TO BE PANCYTOPENIC WITH A WBC OF 0.2 WELL FEBRILE AND ALSO HAD AN ELEVATED LACTIC ACID AND IS HYPOXIC, TACHYPNEIC, AND TACHYCARDIC AND IS BEING ADMITTED TO THE ICU. *CONSULT NOTE PEPE 07-25-19: HE WAS ADMITTED FOR NEUTROPENIC FEVER, SEPSIS, AND HYPOXIC RESPIRATORY FAILURE *WBC: 07-25-19: 0.2 07-26-19: 0.8 07-29-19: 15.4 07-29-19: 23.6 *BANDS: 07-27-19: 42% 07-29-19: 29% RISK FACTORS / RESULTS AND LOCATION IN MR: *ER DX: 07-25-19: PNEUMONIA, NEUTROPENIA, PLEURAL EFFUSION, SEPSIS TREATMENTS / RESULTS AND LOCATION IN MR: *ER DX 07-25-19: VANCOMYCIN IV, CEFEPIME IV, IVF NS (This form is maintained as a part of the permanent medical record) 2014 [employer], [employer]. All Rights Reserved [email or web address] [email or web address] Office: [phone] [facility] HOSPITALJordyn
--- NOTE | 2019-07-29 14:02 | PDOC.MOPN ---
Interval History: c/o weakness - Vital Signs Vital Signs: Vital Signs (12 hours) Temp Pulse Pulse Ox 07/29/19 11:25 98.4 F 07/29/19 10:33 63 07/29/19 08:30 90 07/29/19 07:32 97 07/29/19 07:22 98.2 F Weight Admit Weight 181 lb 14.102 oz Weight 174 lb 4.8 oz Most Recent Monitor Data Heart Rate from ECG 81 NIBP 134/58 NIBP BP-Mean 83 Respiration from ECG 31 SpO2 99 - Physical Exam General: Alert, Oriented x3, No acute distress HEENT: Atraumatic, PERRLA, EOMI, Mucous membr. moist/pink Lungs: Normal air movement, Other Cardiovascular: Regular rate, Normal S1, Normal S2, No murmurs, Gallops, Rubs Abdomen: Normal bowel sounds, Soft, No tenderness, No hepatospenomegaly, No masses Extremities: No clubbing, No cyanosis, No edema, Normal pulses, No tenderness/ swelling Neurological: Normal speech - Labs Result Diagrams: 07/29/19 04:01 07/29/19 04:01 Lab results: Laboratory Results - last 24 hr 07/29/19 07:02: Vancomycin Trough 19.1 07/29/19 04:01: WBC 23.6 H, RBC 4.04 L, Hgb 8.8 L, Hct 28.9 L, MCV 71.5 L, MCH 21.9 L, MCHC 30.6 L, RDW 16.3 H, Plt Count 64 L, MPV 7.6, Neutrophils % (Manual ) 37 L, Band Neuts % (Manual) 29 H, Lymphocytes % (Manual) 12 L, Monocytes % ( Manual) 3, Metamyelocytes % (Man) 10 H, Myelocytes % 9 H, Plt Morphology Comment Appears Decreased L, Microcytosis SLIGHT = 6-15 cells, Elliptocytes SLIGHT = 2-5 cells 07/29/19 04:01: Sodium 140, Potassium 3.8, Chloride 103, Carbon Dioxide 32 H, Anion Gap 9 L, BUN 17, Creatinine 0.81, Estimated GFR (MDRD) 90, Glucose 117 H, Calcium 8.2, Magnesium 1.9 07/29/19 04:01: PT 22.4 H, INR 2.0 Status: lab reviewed by me A/P - Problem (1) Lung cancer Current Visit: Yes Code(s): C34.90 - MALIGNANT NEOPLASM OF UNSP PART OF UNSP BRONCHUS OR LUNG Status: Acute (2) Pneumonia Current Visit: No Code(s): J18.9 - PNEUMONIA, UNSPECIFIED ORGANISM Status: Acute - Plan Plan: continue Megace for appetite stimulation Cont antibiotics and diuretics transfuse plts < 10 restart Warfarin once platelets > 50 cont PT and OOB to chair
--- NOTE | 2019-07-29 16:07 | PRG ---
DATE OF SERVICE: 07/29/2019 SUBJECTIVE: The patient is using a BiPAP mask. Apparently, he requested it to be able to sleep. He is coughing intermittently. No chest pain. No abdominal pain or diarrhea. Voiding without any difficulty. OBJECTIVE: VITAL SIGNS: His T-max 98.4, blood pressure 140/40, pulse 70, respiratory rate 25, and O2 saturation 97, he is on BiPAP mask at this time. LUNGS: Symmetric air entry. Diminished breath sounds in the right hemithorax. HEART: S1 and S2. Regular rate. ABDOMEN: Soft, not distended. EXTREMITIES: Moves extremities equally. LABORATORY DATA: White cell count is up to 23,000, hemoglobin 8.8, platelets 64,000, which is markedly improved, 37% neutrophils, and 29% bands. Creatinine 0.81. Microbiology, all negative including the latest C. diff test. The pathology from the fluid has resulted and it showed rare atypical cells. The previous pathology with neuroendocrine non-small cell lung cancer. 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 Overall prognosis is poor and the chemo is with palliative intent. He is not sure to be able to resume chemotherapy. Should be able to transition to oral antimicrobial therapy for discharge planning. Discontinue vancomycin. Job ID: [id number]
[2019-07-29] MEDS ORDERED: Potassium Chloride 20 MEQ TAB PO SCH (18:15)
--- NOTE | 2019-07-29 18:30 | PDOC.HOSPP ---
- Subjective Encounter Date: 07/29/19 Encounter Time: 09:00 Subjective: no overnight events. This morning, feels about the same and endorses baseline dyspnea. - Objective Vital Signs & Weight: Vital Signs (12 hours) Temp Pulse Pulse Ox 07/29/19 16:12 98.3 F 07/29/19 11:25 98.4 F 07/29/19 10:33 63 07/29/19 08:30 90 07/29/19 07:32 97 07/29/19 07:22 98.2 F Weight Admit Weight 181 lb 14.102 oz Weight 174 lb 4.8 oz Most Recent Monitor Data Heart Rate from ECG 80 NIBP 136/60 NIBP BP-Mean 85 Respiration from ECG 33 SpO2 100 I&O: 07/28/19 07/29/19 07/30/19 06:59 06:59 06:59 Intake Total 1060 2600 610 Output Total 1400 2800 325 Balance -340 -200 285 Result Diagrams: 07/29/19 04:01 07/29/19 04:01 Hospitalist ROS - Review of Systems Constitutional: denies: fever, chills, sweats, weakness, malaise, other Respiratory: reports: cough, dry, SOB with excertion. denies: shortness of breath, hemoptysis, pleuritic pain, sputum, wheezing Cardiovascular: reports: edema. denies: chest pain, palpitations, orthopnea, paroxysmal noc. dyspnea, light headedness Gastrointestinal: reports: diarrhea. denies: nausea, vomiting, abdominal pain, constipation, melena, hematochezia Genitourinary: reports: hematuria - Medication Medications: Active Medications Generic Name Dose Route Start Last Admin Trade Name Freq PRN Reason Stop Dose Admin Digoxin 0.125 mg 07/27/19 09:00 07/29/19 08:30 Lanoxin PO 0.125 mg DAILY MATTY Administration Cefepime HCl 2 gm/ Sodium 100 mls @ 200 mls/hr 07/25/19 12:00 07/29/19 11:40 Chloride IVPB 100 mls Q12H MATTY Administration Megestrol Acetate 800 mg 07/28/19 09:00 07/29/19 08:30 Megace PO 800 mg DAILY MATTY Administration Metoprolol Tartrate 50 mg 07/26/19 21:00 07/29/19 08:30 Lopressor PO 50 mg BID MATTY Administration Potassium Chloride 40 meq 07/28/19 05:33 07/28/19 06:39 Klor-Con PER TUBE 40 meq ASDIR PRN Administration FOR SERUM K+ 2.5-3.5 Sodium Chloride 10 ml 07/25/19 21:00 07/29/19 08:31 Flush - Normal Saline IVF 10 ml Q12HR MATTY Administration - Exam General Appearance: NAD, awake alert Neck: no JVD Heart: irregular Heart - other findings: rate ~ 80s Respiratory: CTAB, no wheezes, no rales, no ronchi, normal chest expansion, tachypneic (when converses for 10-20 seconds becomes tachypnic) Gastrointestinal: soft, non-tender, non-distended, normal bowel sounds Extremities: 2+ LE edema Psychiatric: normal affect, normal behavior, oriented to person, oriented to place Hosp A/P - Plan * Stage 4 lung cancer; serosanguinous pleural effusion * pending final results of pleural microbiology, NTD; cytology pending * continue megace * wheezing on exam 07/27, diarrhea today, 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 considering neuroendocrine tumor * * contraction alkalosis (improving) * elevated bicarb, azotemia likely due to contraction despite lower extremity edema which may be a result of pHTN * lungs as clear as have been since * Recent echo (05/2019) relatively benign except mod/severe tricusp regurg, c/w pHTN; hoever RV function reported normal, and no transtricuspid velocity measured; at least intermediate probability for pHTN * neutropenic fever (resolved) * possible sources pneumonia, mediport (though no superficial signs of infection) * infectious workup NTD * afebrile as inpatient * currently neutrophilic (07/27), may be a result of malignancy, MPN? defer to heme/onc * gram stain -ve (pleural and respiratory); NGTD (final respiratory) * has been afebrile for 6 days; considering MASCC score > 21 and low risk for complications, will discontinue antibiotics at day 7 assuming infectious disease agrees Iron deficiency anemia -will supplement with ferrous sulfate TID qod * atrial fibrillation with RVR * HR now well controlled * * continue metoprolol and digoxin * per ONC, can restart warfarin once platelets > 50 * * disposition/PPx * can go to telemetry floor once stable * full code * GI PPx : no Ix * DVT PPx: considering hemoptysis and patient ambulating, will hold. Per onc, can restart warfarin once plt>50
--- NOTE | 2019-07-29 18:41 | PRG ---
DATE OF SERVICE: 07/29/2019 SERVICE: Pulmonary Medicine. INTERVAL HISTORY: The patient is doing really well from respiratory standpoint. Breathing comfortably. No complaints of chest discomfort, fevers, or chills. His weakness seems to be improving slightly. He likes using the BiPAP. In my mind, this is more of a security blanket for him than it is a true physiologic need for him to wear this thing. Nursing reports no overnight events. PHYSICAL EXAMINATION: VITAL SIGNS: Afebrile. Pulse 80, blood pressure 136/60, respirations 33, and saturation 100%, currently on 4 L nasal cannula. GENERAL: The patient is awake and alert, in no apparent distress. LUNGS: Decent air entry. There is reduced air entry at the right base. No prolonged expiratory phase or wheezing is appreciated. HEART: Normal rate, regular. ABDOMEN: Soft, nontender, and nondistended. Bowel sounds are positive. MUSCULOSKELETAL: No cyanosis or clubbing. There is 2+ pitting in the sacrum. There is 1+ pitting in bilateral lower extremities. NEUROLOGIC: Grossly nonfocal. LABORATORY DATA: WBC 23.6, hemoglobin 8.8, platelets 64,000 and beautifully rebounding. INR is 2.0. Basic metabolic profile is otherwise unremarkable. Magnesium is 1.9. Cytology demonstrates rare atypical cells present in the background of blood mesothelial cells. That being said, there is extraordinarily rare atypical cells present. ASSESSMENT: 1. Acute hypoxic respiratory failure. 2. Pleural effusion, serosanguineous exudate, pathology negative (only a couple of atypical cells present). 3. Acute on chronic diastolic heart failure, currently euvolemic. 4. Atrial fibrillation with RVR, currently rate controlled. 5. Healthcare-associated pneumonia. DISCUSSION AND PLAN: I will give a dose of Lasix today. I will repeat a chest x-ray tomorrow morning. Critical Care will continue to follow very closely, but I believe the patient could likely benefit from transition to the floor within 24 hours. Once again, we will try to convince the patient to go without BiPAP. Job ID: [id number]
[2019-07-30] MEDS: Cefepime 2 GM in Sodium Chloride 0.9% 100 ML IVPB SCH ×3 (00:31→23:46)
[2019-07-30 03:52] LABS: INR-International Normal Ratio 1.9; Prothrombin Time 22.1 SEC (12.0-14.7)
[2019-07-30 04:12] LABS: Chloride 103 mmol/L (98-107); Potassium 4.2 mmol/L (3.5-5.1); Sodium 143 mmol/L (136-145)
[2019-07-30 04:17] LABS: Calcium 8.3 mg/dL (7.8-10.44); Glucose 104 mg/dL (83-110)
[2019-07-30 04:19] LABS: Carbon Dioxide 34 mmol/L (23-31)
[2019-07-30 04:21] LABS: Calc. Creatinine Clearance 71 mL/min (70-130); Estimated GFR-MDRD 88
[2019-07-30 04:22] LABS: BUN (Urea Nitrogen) 16 mg/dL (8.4-25.7)
[2019-07-30 04:34] LABS: Anion Gap 10 mmol/L (10-20)
[2019-07-30 04:53] LABS: Anisocytosis SLIGHT = 6-15 cells (100X) (0-5/hpf); Band 31 % (5-11); Elliptocytes SLIGHT = 2-5 cells (100X) (0-1/hpf); Hemoglobin 8.7 g/dL (14.0-18.0); Lymphocytes 14 % (21-51); MDiff Complete? YES; Mean Corpuscular HGB CONC 30.1 g/dL (32.0-36.0); Mean Corpuscular Hemoglobin 21.6 pg (27.0-31.0); Mean Corpuscular Volume 71.7 fL (78.0-98.0); Mean Platelet Volume 11.7 fL (7.4-10.4); Metamyelocyte 10 % (0-0); Monocytes 6 % (0-10); Myelocyte 6 % (0-0); Neutrophil 33 % (42-75); Nucleated RBC 2 % (0); Platelet Count 104 thou/uL (130-400); Platelet Morphology Comment Appears Decreased; RBC Distribution Width 16.2 % (11.5-14.5); Red Blood Cell (RBC) Count 4.03 mill/uL (4.70-6.10); White Blood Cell (WBC) Count 36.1 thou/uL (4.8-10.8)
[2019-07-30] MEDS: Digoxin 0.125 MG TAB PO SCH (07:42)
[2019-07-30] MEDS: Metoprolol Tartrate 50 MG TAB PO SCH ×2 (07:43→20:24)
[2019-07-30] MEDS: Ferrous Sulfate 325 MG TAB PO SCH ×3 (07:44→17:44)
[2019-07-30] MEDS: Megestrol Acetate 800 MG/20 ML UDCUP PO SCH (07:44)
[2019-07-30] MEDS ORDERED: Ferrous Sulfate 325 MG TAB PO SCH (08:00)
[2019-07-30] MEDS ORDERED: Furosemide 40 MG/4 ML VIAL SLOW IVP SCH (09:00)
--- NOTE | 2019-07-30 14:43 | PRG ---
DATE OF SERVICE: 07/30/2019 SERVICE: Pulmonary Medicine. INTERVAL HISTORY: The patient is doing fine from respiratory standpoint. That being said, he likes wearing his BiPAP. At no point has he actually needed in the last 2 days, but he insists on wearing in the evening time. We are going to go and discontinue the BiPAP at night. We will move it out of his room and out of field of view. That being said, it will obviously be available to us should he actually develop any significant respiratory difficulties. There has been no interval change to his condition, otherwise. PHYSICAL EXAMINATION: VITAL SIGNS: Afebrile; pulse 71; blood pressure 134/59; respirations 27; and saturation 96%, currently on 4 L nasal cannula. GENERAL: The patient is awake and alert, in no apparent distress. LUNGS: Good air entry bilaterally. Dependent crackles are still present. No prolonged expiratory phase or wheezing is appreciated. HEART: Normal rate. Regular. ABDOMEN: Soft, nontender, and nondistended. Bowel sounds are positive. MUSCULOSKELETAL: No cyanosis or clubbing. There is no pitting in bilateral lower extremities. NEUROLOGIC: Grossly nonfocal. LABORATORY DATA: WBC 36.1, hemoglobin 8.7, and platelets 104,000 and nicely rebounding. INR 1.9. Basic metabolic profile is completely unremarkable. All culture results remain negative to date. C difficile antigen and toxin are negative. ASSESSMENT: 1. Acute hypoxic respiratory failure. 2. Pleural effusion, serosanguineous exudate, pathology negative (minimal atypical cells are present). 3. Acute on chronic diastolic heart failure, approaching euvolemia. 4. Atrial fibrillation with rapid ventricular response, rate controlled. 5. Healthcare-associated pneumonia, resolved. DISCUSSION AND PLAN: We will continue diuresing the patient through time. We will see if we can go 24 hours without BiPAP. If we can, he can be considered for transition to the floor. I will repeat a chest x-ray tomorrow morning. Pulmonary will follow. Job ID: [id number]
--- NOTE | 2019-07-30 15:07 | RAD ---
XR Chest 1 View Portable HISTORY: Follow-up effusion and infiltrates COMPARISON: 07/26/2019 FINDINGS: Changes of median sternotomy are again seen. Right-sided Port-A-Cath remains in place. Hear t size stable. A small right pleural effusion is again seen. Right hilar/perihilar mass is again noted. No pneumothoraces are identified. IMPRESSION: Stable exam
--- NOTE | 2019-07-30 23:33 | PDOC.HOSPP ---
- Subjective Encounter Date: 07/30/19 Encounter Time: 10:00 Subjective: no overnight events. feeling and breathing about the same. - Objective Vital Signs & Weight: Vital Signs (12 hours) Temp Pulse Ox 07/30/19 20:00 97.6 F 98 07/30/19 15:20 97.8 F Weight Admit Weight 181 lb 14.102 oz Weight 174 lb 4.8 oz Most Recent Monitor Data Heart Rate from ECG 68 NIBP 134/58 NIBP BP-Mean 83 Respiration from ECG 26 SpO2 97 I&O: 07/29/19 07/30/19 07/31/19 06:59 06:59 06:59 Intake Total 2600 1090 Output Total 2800 875 200 Balance -200 215 -200 Result Diagrams: 07/30/19 03:37 07/30/19 03:37 Hospitalist ROS - Review of Systems Respiratory: reports: cough, dry, SOB with excertion. denies: shortness of breath, hemoptysis, pleuritic pain, sputum, wheezing, other Cardiovascular: denies: chest pain, palpitations, orthopnea, paroxysmal noc. dyspnea, edema, light headedness, other Gastrointestinal: denies: nausea, vomiting, abdominal pain, diarrhea, constipation, melena, hematochezia, other Genitourinary: denies: hematuria - Medication Medications: Active Medications Generic Name Dose Route Start Last Admin Trade Name Freq PRN Reason Stop Dose Admin Digoxin 0.125 mg 07/27/19 09:00 07/30/19 07:42 Lanoxin PO 0.125 mg DAILY MATTY Administration Ferrous Sulfate 325 mg 07/30/19 08:00 07/30/19 07:44 Feosol PO 325 mg Q2D MATTY Administration Ferrous Sulfate 325 mg 07/30/19 12:00 07/30/19 12:26 Feosol PO 325 mg Q2D MATTY Administration Ferrous Sulfate 325 mg 07/30/19 17:00 07/30/19 17:44 Feosol PO 325 mg Q2D MATTY Administration Cefepime HCl 2 gm/ Sodium 100 mls @ 200 mls/hr 07/25/19 12:00 07/30/19 12:26 Chloride IVPB 100 mls Q12H MATTY Administration Megestrol Acetate 800 mg 07/28/19 09:00 07/30/19 07:44 Megace PO 800 mg DAILY MATTY Administration Metoprolol Tartrate 50 mg 07/26/19 21:00 07/30/19 20:24 Lopressor PO 50 mg BID MATTY Administration Potassium Chloride 40 meq 07/28/19 05:33 07/28/19 06:39 Klor-Con PER TUBE 40 meq ASDIR PRN Administration FOR SERUM K+ 2.5-3.5 Sodium Chloride 10 ml 07/25/19 21:00 07/30/19 20:24 Flush - Normal Saline IVF 10 ml Q12HR MATTY Administration - Exam General Appearance: NAD, awake alert Neck: no JVD Heart: no murmur, no gallops, irregular Heart - other findings: regular rate Respiratory: CTAB, no wheezes, no ronchi Respiratory - other findings: reduced right midfield sounds, mild inspiratory rales b/l lower [place] Gastrointestinal: soft, non-tender, non-distended Extremities: 2+ LE edema Psychiatric: normal affect, normal behavior, oriented to person, oriented to place Hosp A/P - Plan * Stage 4 lung cancer; serosanguinous pleural effusion * pending final results of pleural microbiology, NTD; cytology pending * pleural cytology: rare atypical cells * * continue to diurese as per ICU * per ICU once off bipap, can be transfered to floor * * contraction alkalosis (improving) * neutropenic fever (resolved) * possible sources pneumonia, mediport (though no superficial signs of infection) * infectious workup NTD * afebrile as inpatient * currently neutrophilic (3/2) * gram stain -ve (pleural and respiratory); NGTD (final respiratory) * has been afebrile for 7 days; considering MASCC score > 21 and low risk for complications; Iron deficiency anemia -will supplement with ferrous sulfate TID qod * atrial fibrillation with RVR * HR now well controlled * CHADVASC score 3; considering patient endorses hemoptysis though improving, will hold * * continue metoprolol and digoxin * * disposition/PPx * per ICU, will attempt to remove nightly Bipap and if so, transfer to floor * full code * GI PPx : no Ix * DVT PPx:
[2019-07-31 03:37] LABS: INR-International Normal Ratio 1.7; Prothrombin Time 19.9 SEC (12.0-14.7)
[2019-07-31 03:41] LABS: Anion Gap 10 mmol/L (10-20); BUN (Urea Nitrogen) 16 mg/dL (8.4-25.7); Calc. Creatinine Clearance 73 mL/min (70-130); Calcium 8.4 mg/dL (7.8-10.44); Carbon Dioxide 34 mmol/L (23-31); Chloride 101 mmol/L (98-107); Estimated GFR-MDRD 90; Glucose 109 mg/dL (83-110); Phosphorus 2.2 mg/dL (2.3-4.7); Potassium 3.9 mmol/L (3.5-5.1); Sodium 141 mmol/L (136-145)
[2019-07-31 04:24] LABS: Band 12 % (5-11); Elliptocytes SLIGHT = 2-5 cells (100X) (0-1/hpf); Hemoglobin 8.5 g/dL (14.0-18.0); Lymphocytes 14 % (21-51); MDiff Complete? YES; Mean Corpuscular HGB CONC 29.6 g/dL (32.0-36.0); Mean Corpuscular Hemoglobin 21.4 pg (27.0-31.0); Mean Corpuscular Volume 72.1 fL (78.0-98.0); Mean Platelet Volume 10.8 fL (7.4-10.4); Metamyelocyte 5 % (0-0); Microcytosis SLIGHT = 6-15 cells (100X) (0-5/hpf); Monocytes 3 % (0-10); Myelocyte 13 % (0-0); Neutrophil 53 % (42-75); Nucleated RBC 1 % (0); Platelet Count 136 thou/uL (130-400); RBC Distribution Width 16.5 % (11.5-14.5); Red Blood Cell (RBC) Count 3.99 mill/uL (4.70-6.10); Schistocytes SLIGHT = 2-5 cells (100X) (0-1/hpf); White Blood Cell (WBC) Count 29.7 thou/uL (4.8-10.8)
[2019-07-31] MEDS: Digoxin 0.125 MG TAB PO SCH (09:13)
[2019-07-31] MEDS: Megestrol Acetate 800 MG/20 ML UDCUP PO SCH (09:13)
[2019-07-31] MEDS: Metoprolol Tartrate 50 MG TAB PO SCH ×2 (09:14→20:14)
[2019-07-31] MEDS ORDERED: Sodium Phosphate 30 MMOL in Sodium Chloride 0.9% 250 ML 250 ML IVPB SCH (12:00)
[2019-07-31] MEDS ORDERED: acetaZOLAMIDE Sodium 500 mg Vial IVP SCH (12:30)
[2019-07-31] MEDS ORDERED: Sterile Water 10 ML VIAL IVP SCH (12:30)
[2019-07-31] MEDS ORDERED: Furosemide 40 MG/4 ML VIAL SLOW IVP SCH (12:30)
[2019-07-31] MEDS: Cefepime 2 GM in Sodium Chloride 0.9% 100 ML IVPB SCH ×2 (12:51→23:41)
--- NOTE | 2019-07-31 14:24 | PRG ---
DATE OF SERVICE: 07/31/2019 SERVICE: Pulmonary Medicine. INTERVAL HISTORY: The patient has done really well from respiratory standpoint. He was able to stay off his BiPAP over the last 24 hours. He has no complaints of chest discomfort, nausea, and vomiting. He is able to get some sleep without it. Otherwise, he is recovering very nicely. PHYSICAL EXAMINATION: VITAL SIGNS: Afebrile, pulse 76, blood pressure 134/48, respirations 19, saturation 95% on 4 L nasal cannula. GENERAL: The patient is awake and alert, in no apparent distress. LUNGS: Good air entry bilaterally. There is a slightly prolonged expiratory phase. No wheezing is present. Rhonchi clear with cough. Dependent crackles are noted. HEART: Normal rate, regular. ABDOMEN: Soft, nontender, nondistended. Bowel sounds are positive. MUSCULOSKELETAL: No cyanosis or clubbing. There is 2 to 3+ pitting in the bilateral lower extremities. NEUROLOGIC: Grossly nonfocal. LABORATORY DATA: WBC 29.7, hemoglobin 8.5, platelets 136, returning to normal. Band count is dropping to 12. INR 1.7. Basic metabolic profile is otherwise unremarkable. Magnesium 2.0, phosphorus 2.2. C diff antigen and toxin negative. IMAGING: Chest x-ray demonstrates interval improvement in aeration in the right lung. There is an interval improvement in the right-sided effusion compared to original. ASSESSMENT: 1. Acute hypoxic respiratory failure, improving. 2. Pleural effusion, serosanguineous exudate, pathology negative (minimal atypical cells present). 3. Acute on chronic diastolic heart failure, approaching euvolemia. 4. Atrial fibrillation with rapid ventricular response, currently rate controlled. 5. Healthcare-associated pneumonia, resolving. DISCUSSION AND PLAN: We will continue steroids, antibiotics, and nebulized medications. The patient can be transitioned out of the IMCU to the telemetry unit. We will continue to diurese down to euvolemia as tolerated. Critical Care will follow. Job ID: [id number]
[2019-07-31] MEDS: Warfarin Sodium 0.5 MG HALF.TAB PO SCH (16:17)
[2019-07-31] MEDS: Warfarin Sodium 3 MG TAB PO SCH (16:17)
--- NOTE | 2019-07-31 21:51 | PDOC.HOSPP ---
- Subjective Encounter Date: 07/31/19 Encounter Time: 07:00 Subjective: no overnight events. This morning, breathing and saturating well on 4L NC, didn' t have to use bipap at night. - Objective Vital Signs & Weight: Vital Signs (12 hours) Temp Pulse Resp BP Pulse Ox 07/31/19 19:50 97.7 F 80 22 H 190/79 H 94 L 07/31/19 19:25 97.7 F 07/31/19 19:21 21 H 94 L 07/31/19 15:39 98.4 F 07/31/19 12:06 76 19 134/48 L 95 07/31/19 11:32 98.3 F Weight Admit Weight 181 lb 14.102 oz Weight 180 lb 3.2 oz Most Recent Monitor Data Heart Rate from ECG 84 NIBP 149/63 NIBP BP-Mean 91 Respiration from ECG 25 SpO2 94 I&O: 07/30/19 07/31/19 08/01/19 06:59 06:59 06:59 Intake Total 1090 210 92.6 Output Total 875 630 975 Balance 215 -420 -882.4 Result Diagrams: 07/31/19 03:13 07/31/19 03:13 Hospitalist ROS - Review of Systems Constitutional: denies: fever, chills, sweats, weakness, malaise, other Respiratory: denies: cough, dry, shortness of breath, hemoptysis, SOB with excertion, pleuritic pain, sputum, wheezing, other Cardiovascular: denies: chest pain, palpitations, orthopnea, paroxysmal noc. dyspnea, edema, light headedness, other Gastrointestinal: denies: nausea, vomiting, abdominal pain, diarrhea, constipation, melena, hematochezia, other - Medication Medications: Active Medications Generic Name Dose Route Start Last Admin Trade Name Freq PRN Reason Stop Dose Admin Digoxin 0.125 mg 07/27/19 09:00 07/31/19 09:13 Lanoxin PO 0.125 mg DAILY MATTY Administration Ferrous Sulfate 325 mg 07/30/19 08:00 07/30/19 07:44 Feosol PO 325 mg Q2D MATTY Administration Ferrous Sulfate 325 mg 07/30/19 12:00 07/30/19 12:26 Feosol PO 325 mg Q2D MATTY Administration Ferrous Sulfate 325 mg 07/30/19 17:00 07/30/19 17:44 Feosol PO 325 mg Q2D MATTY Administration Cefepime HCl 2 gm/ Sodium 100 mls @ 200 mls/hr 07/25/19 12:00 07/31/19 12:51 Chloride IVPB 100 mls Q12H MATTY Administration Megestrol Acetate 800 mg 07/28/19 09:00 07/31/19 09:13 Megace PO 800 mg DAILY MATTY Administration Metoprolol Tartrate 50 mg 07/26/19 21:00 07/31/19 20:14 Lopressor PO 50 mg BID MATTY Administration Potassium Chloride 40 meq 07/28/19 05:33 07/28/19 06:39 Klor-Con PER TUBE 40 meq ASDIR PRN Administration FOR SERUM K+ 2.5-3.5 Sodium Chloride 10 ml 07/25/19 21:00 07/31/19 20:15 Flush - Normal Saline IVF 10 ml Q12HR MATTY Administration Warfarin Sodium 3 mg 07/31/19 17:00 07/31/19 16:17 Coumadin PO 3 mg 1700 MATTY Administration Warfarin Sodium 0.5 mg 07/31/19 17:00 07/31/19 16:17 Coumadin PO 0.5 mg 1700 MATTY Administration - Exam General Appearance: NAD, awake alert Neck: no JVD Heart: no murmur, no gallops, no rubs, normal peripheral pulses Respiratory: no wheezes, normal chest expansion, no tachypnea, rales Gastrointestinal: soft, non-tender, non-distended, normal bowel sounds, no palpable masses, no hepatomegaly, no splenomegaly, no bruit Extremities: 2+ LE edema Psychiatric: normal affect, normal behavior, A&O x 3 Hosp A/P - Plan * Stage 4 lung cancer; serosanguinous pleural effusion * * continue to diurese as per pulmonology as tolerated * transfer to tele onc * * contraction alkalosis (improving) * neutropenic fever (resolved) Iron deficiency anemia -ferrous sulfate TID qod * atrial fibrillation with RVR * HR now well controlled * CHADVASC score 3; considering patient endorses hemoptysis though improving, will hold * * continue metoprolol and digoxin * * disposition/PPx * transfer to telemetry * full code * GI PPx : no Ix
[2019-07-31] MEDS ORDERED: Lidocaine 2% Viscous Solution 10 ML, Aluminum & Magnesium Hydroxide 30 ML SSW SCH (23:15)
[2019-08-01 04:11] LABS: INR-International Normal Ratio 1.7; Prothrombin Time 20.3 SEC (12.0-14.7)
[2019-08-01 04:17] LABS: Band 13 % (5-11); Hemoglobin 8.6 g/dL (14.0-18.0); Lymphocytes 18 % (21-51); MDiff Complete? YES; Mean Corpuscular HGB CONC 29.6 g/dL (32.0-36.0); Mean Corpuscular Hemoglobin 21.5 pg (27.0-31.0); Mean Corpuscular Volume 72.6 fL (78.0-98.0); Mean Platelet Volume 10.1 fL (7.4-10.4); Metamyelocyte 10 % (0-0); Monocytes 4 % (0-10); Myelocyte 4 % (0-0); Neutrophil 51 % (42-75); Ovalocytes SLIGHT = 2-5 cells (100X) (0-1/hpf); Platelet Count 225 thou/uL (130-400); Platelet Morphology Comment Appears Adequate; RBC Distribution Width 17.2 % (11.5-14.5); Red Blood Cell (RBC) Count 4.02 mill/uL (4.70-6.10); White Blood Cell (WBC) Count 33.4 thou/uL (4.8-10.8)
[2019-08-01 04:24] LABS: Anion Gap 11 mmol/L (10-20); BUN (Urea Nitrogen) 16 mg/dL (8.4-25.7); Calc. Creatinine Clearance 65 mL/min (70-130); Calcium 8.3 mg/dL (7.8-10.44); Carbon Dioxide 33 mmol/L (23-31); Chloride 101 mmol/L (98-107); Estimated GFR-MDRD 76; Glucose 135 mg/dL (83-110); Potassium 4.1 mmol/L (3.5-5.1); Sodium 141 mmol/L (136-145)
[2019-08-01] MEDS ORDERED: Furosemide 40 MG/4 ML VIAL SLOW IVP SCH (09:00)
[2019-08-01] MEDS: Digoxin 0.125 MG TAB PO SCH (10:05)
[2019-08-01] MEDS: Metoprolol Tartrate 50 MG TAB PO SCH ×2 (10:06→20:17)
[2019-08-01] MEDS: Ferrous Sulfate 325 MG TAB PO SCH ×3 (10:06→19:45)
[2019-08-01] MEDS: Megestrol Acetate 800 MG/20 ML UDCUP PO SCH (10:06)
--- NOTE | 2019-08-01 13:32 | PDOC.MOPN ---
Interval History: sleeping - Vital Signs Vital Signs: Vital Signs (12 hours) Temp Pulse Resp BP BP Pulse Ox 08/01/19 08:00 97.6 F 76 22 H 144/67 H 92 L 08/01/19 03:48 97.6 F 78 16 188/75 H 92 L Weight Admit Weight 181 lb 14.102 oz Weight 180 lb 3.2 oz Most Recent Monitor Data Heart Rate from ECG 84 NIBP 149/63 NIBP BP-Mean 91 Respiration from ECG 25 SpO2 94 - Physical Exam General: No acute distress Lungs: Clear to auscultation Cardiovascular: Regular rate Abdomen: Normal bowel sounds Extremities: No clubbing, No cyanosis, No edema, Normal pulses, No tenderness/ swelling - Labs Result Diagrams: 08/01/19 03:48 08/01/19 03:48 Lab results: Laboratory Results - last 24 hr 08/01/19 03:48: Phosphorus 4.0 08/01/19 03:48: WBC 33.4 H, RBC 4.02 L, Hgb 8.6 L, Hct 29.2 L, MCV 72.6 L, MCH 21.5 L, MCHC 29.6 L, RDW 17.2 H, Plt Count 225, MPV 10.1, Neutrophils % (Manual ) 51, Band Neuts % (Manual) 13 H, Lymphocytes % (Manual) 18 L, Monocytes % ( Manual) 4, Metamyelocytes % (Man) 10 H, Myelocytes % 4 H, Plt Morphology Comment Appears Adequate, Ovalocytes SLIGHT = 2-5 cells 08/01/19 03:48: Sodium 141, Potassium 4.1, Chloride 101, Carbon Dioxide 33 H, Anion Gap 11, BUN 16, Creatinine 0.94, Estimated GFR (MDRD) 76, Glucose 135 H, Calcium 8.3 08/01/19 03:48: PT 20.3 H, INR 1.7 Status: lab reviewed by me A/P - Problem (1) Lung cancer Current Visit: Yes Code(s): C34.90 - MALIGNANT NEOPLASM OF UNSP PART OF UNSP BRONCHUS OR LUNG Status: Acute (2) Pneumonia Current Visit: No Code(s): J18.9 - PNEUMONIA, UNSPECIFIED ORGANISM Status: Acute - Plan Plan: patient wishes to continue chemo planning to go to skilled unit will follow-up outpatient once out of SNF
--- NOTE | 2019-08-01 17:52 | PRG ---
DATE OF SERVICE: 08/01/2019 SERVICE: Pulmonary Medicine. INTERVAL HISTORY: The patient is doing really well from respiratory standpoint. He is on 2 L nasal cannula. His biggest complaint currently is that he finally has an appetite, and his lunch tray did not arrive. Otherwise, there has been no interval change to his condition. PHYSICAL EXAMINATION: VITAL SIGNS: Afebrile. Pulse 76, blood pressure 144/67, respirations 22, saturation 92%, currently on 4 L nasal cannula. GENERAL: The patient is awake and alert, in no apparent distress. LUNGS: Good air entry bilaterally. There is decreased air entry at the right base. Crackles are present bilaterally. HEART: Normal rate, regular. ABDOMEN: Soft, nontender, nondistended. Bowel sounds are positive. MUSCULOSKELETAL: No cyanosis or clubbing. There is no pitting in the bilateral lower extremities. NEUROLOGIC: Grossly nonfocal. LABORATORY DATA: WBC 33.4, hemoglobin 8.6 and stable, platelets 225,000, and gently uptrending. Band count is stable on top of neutrophils. Lymphocytes, and monocytes continued to trickle upward. Basic metabolic profile is completely unremarkable except for a bicarb of 33. Phosphorus is unremarkable today. ASSESSMENT: 1. Acute hypoxic respiratory failure, improving. 2. Pleural effusion, serosanguineous exudate, pathology negative (minimal atypical cells present). 3. [id number] diastolic heart failure, approaching euvolemia. 4. Atrial fibrillation with rapid ventricular rate, currently rate controlled. 5. Healthcare-associated pneumonia, resolving. 6. Lung cancer, stage IV. DISCUSSION AND PLAN: The patient is doing fine from respiratory standpoint. We will continue to diurese him gently down to euvolemia. Pulmonary will continue to follow intermittently while the patient remains inhouse. If he is still here on Sunday, Dr. Brito has an established relationship with Mr. Lancaster and will assume care Sunday if the patient remains in house. If he gets into trouble over the weekend, please give Dr. Gandhi a phone call. Job ID: [id number] MTDD
[2019-08-01] MEDS: Warfarin Sodium 0.5 MG HALF.TAB PO SCH (19:44)
[2019-08-01] MEDS: Warfarin Sodium 3 MG TAB PO SCH (19:45)
--- NOTE | 2019-08-01 20:21 | PDOC.HOSPP ---
- Subjective Encounter Date: 08/01/19 Encounter Time: 10:00 Subjective: no overnight events. This morning, feels well, breathes well including during the night without use of NIPPV. Continuing to diurese as per Pulmonology and pending placement. - Objective Vital Signs & Weight: Vital Signs (12 hours) Temp Pulse Resp BP Pulse Ox 08/01/19 19:26 98.1 F 89 24 H 147/65 H 94 L Weight Admit Weight 181 lb 14.102 oz Weight 180 lb 3.2 oz Most Recent Monitor Data Heart Rate from ECG 84 NIBP 149/63 NIBP BP-Mean 91 Respiration from ECG 25 SpO2 94 I&O: 07/31/19 08/01/19 08/02/19 06:59 06:59 06:59 Intake Total 210 992.6 Output Total 630 1475 Balance -420 -482.4 Result Diagrams: 08/01/19 03:48 08/01/19 03:48 Hospitalist ROS - Review of Systems Constitutional: denies: fever, chills, sweats, weakness, malaise, other Respiratory: reports: cough, hemoptysis (streaks of blood in sputum), SOB with excertion, sputum. denies: dry, shortness of breath, pleuritic pain, wheezing, other Cardiovascular: denies: chest pain, palpitations, orthopnea, paroxysmal noc. dyspnea, edema, light headedness, other Gastrointestinal: denies: nausea, vomiting, abdominal pain, diarrhea, constipation, melena, hematochezia, other - Medication Medications: Active Medications Generic Name Dose Route Start Last Admin Trade Name Freq PRN Reason Stop Dose Admin Digoxin 0.125 mg 07/27/19 09:00 08/01/19 10:05 Lanoxin PO 0.125 mg DAILY MATTY Administration Ferrous Sulfate 325 mg 07/30/19 08:00 08/01/19 10:06 Feosol PO 325 mg Q2D MATTY Administration Ferrous Sulfate 325 mg 07/30/19 12:00 08/01/19 12:00 Feosol PO Not Given Q2D MATTY Ferrous Sulfate 325 mg 07/30/19 17:00 08/01/19 19:45 Feosol PO 325 mg Q2D MATTY Administration Megestrol Acetate 800 mg 07/28/19 09:00 08/01/19 10:06 Megace PO 800 mg DAILY MATTY Administration Metoprolol Tartrate 50 mg 07/26/19 21:00 08/01/19 20:17 Lopressor PO 50 mg BID MATTY Administration Pantoprazole Sodium 40 mg 08/01/19 09:00 08/01/19 10:06 Protonix PO 40 mg DAILY MATTY Administration Sodium Chloride 10 ml 07/25/19 21:00 08/01/19 20:17 Flush - Normal Saline IVF 10 ml Q12HR MATTY Administration Warfarin Sodium 3 mg 07/31/19 17:00 08/01/19 19:45 Coumadin PO 3 mg 1700 MATTY Administration Warfarin Sodium 0.5 mg 07/31/19 17:00 08/01/19 19:44 Coumadin PO 0.5 mg 1700 MATTY Administration - Exam General Appearance: NAD, awake alert Neck: no JVD Heart: no murmur, no gallops, no rubs, irregular Heart - other findings: normal rate Respiratory: no wheezes, no ronchi Respiratory - other findings: CTA upper and midfields; mild b/l LF inspiratory rales, unchanged Gastrointestinal: soft, non-tender, non-distended, normal bowel sounds Extremities: 2+ LE edema Extremities - other findings: unchanged Psychiatric: normal affect, normal behavior, A&O x 3 Hosp A/P - Plan * Stage 4 lung cancer; serosanguinous pleural effusion * * continue to diurese as per pulmonology as tolerated * per Onc, requests to continue chemotherapy (as outpatient) * * contraction alkalosis - diuresis * neutropenic fever (resolved) Iron deficiency anemia -ferrous sulfate TID qod * atrial fibrillation with RVR * HR well controlled * CHADVASC score 3; started warfarin per Oncology; patient has minimal hemoptysis that hasn't worsened so far since restarting warfarin (07/31) * * continue metoprolol and digoxin; warfarin * * disposition/PPx * pending SNF placement * full code * GI PPx : no Ix
[2019-08-02] MEDS: Digoxin 0.125 MG TAB PO SCH (09:21)
[2019-08-02] MEDS: Furosemide 40 MG TAB PO SCH (09:22)
[2019-08-02] MEDS: Metoprolol Tartrate 50 MG TAB PO SCH ×2 (09:22→20:30)
[2019-08-02] MEDS: Megestrol Acetate 800 MG/20 ML UDCUP PO SCH (09:22)
--- NOTE | 2019-08-02 13:21 | PDOC.HOSPP ---
- Subjective Encounter Date: 08/02/19 Encounter Time: 09:45 Subjective: no acute events noted o/n; afebrile this am. - Objective Vital Signs & Weight: Vital Signs (12 hours) Temp Pulse Resp BP BP BP Pulse Ox 08/02/19 09:21 77 08/02/19 08:00 98.2 F 96 20 137/62 96 08/02/19 04:59 77 118/55 L 08/02/19 04:33 76 16 08/02/19 04:02 80 186/73 H 08/02/19 04:00 96 Weight Admit Weight 181 lb 14.102 oz Weight 180 lb 3.2 oz Most Recent Monitor Data Heart Rate from ECG 84 NIBP 149/63 NIBP BP-Mean 91 Respiration from ECG 25 SpO2 94 I&O: 08/01/19 08/02/19 08/03/19 06:59 06:59 07:59 Intake Total 992.6 240 Output Total 1475 775 Balance -482.4 -535 Result Diagrams: 08/01/19 03:48 08/01/19 03:48 Hospitalist ROS - Medication Medications: Active Medications Generic Name Dose Route Start Last Admin Trade Name Freq PRN Reason Stop Dose Admin Albuterol/Ipratropium 3 ml 07/25/19 10:27 08/02/19 04:33 Duoneb NEB 3 ml [id number] PRN Administration SOB &/or Wheezing Digoxin 0.125 mg 07/27/19 09:00 08/02/19 09:21 Lanoxin PO 0.125 mg DAILY MATTY Administration Ferrous Sulfate 325 mg 07/30/19 08:00 08/01/19 10:06 Feosol PO 325 mg Q2D MATTY Administration Ferrous Sulfate 325 mg 07/30/19 12:00 08/01/19 12:00 Feosol PO Not Given Q2D MATTY Ferrous Sulfate 325 mg 07/30/19 17:00 08/01/19 19:45 Feosol PO 325 mg Q2D MATTY Administration Furosemide 40 mg 08/02/19 07:30 08/02/19 09:22 Lasix PO 40 mg DAILY-AC MATTY Administration Hydralazine HCl 10 mg 07/25/19 10:27 08/02/19 04:02 Apresoline SLOW IVP 10 mg Q4H PRN Administration SBP > 180 and HR < 70 Megestrol Acetate 800 mg 07/28/19 09:00 08/02/19 09:22 Megace PO 800 mg DAILY MATTY Administration Metoprolol Tartrate 50 mg 07/26/19 21:00 08/02/19 09:22 Lopressor PO 50 mg BID MATTY Administration Pantoprazole Sodium 40 mg 08/01/19 09:00 08/02/19 09:22 Protonix PO 40 mg DAILY MATTY Administration Sodium Chloride 10 ml 07/25/19 21:00 08/01/19 20:17 Flush - Normal Saline IVF 10 ml Q12HR MATTY Administration Warfarin Sodium 3 mg 07/31/19 17:00 08/01/19 19:45 Coumadin PO 3 mg 1700 MATTY Administration Warfarin Sodium 0.5 mg 07/31/19 17:00 08/01/19 19:44 Coumadin PO 0.5 mg 1700 MATTY Administration - Exam General Appearance: ill appearing Eye: PERRL ENT: normocephalic atraumatic Neck: supple Heart: RRR Respiratory: CTAB Gastrointestinal: normal bowel sounds Extremities: no cyanosis Hosp A/P - Plan * Stage 4 lung cancer; serosanguinous pleural effusion * * continue to diurese - pulmonology on board * per Onc, requests to continue chemotherapy (as outpatient) * * contraction alkalosis - diuresis * neutropenic fever (resolved) Iron deficiency anemia -ferrous sulfate TID qod * Atrial fibrillation with RVR * HR well controlled * CHADVASC score 3; started warfarin per Oncology; * -minimal hemoptysis that hasn't worsened so far since restarting warfarin (07/31) * continue metoprolol and digoxin; warfarin * * disposition/PPx * pending SNF placement * full code
[2019-08-02] MEDS: Warfarin Sodium 0.5 MG HALF.TAB PO SCH (20:30)
[2019-08-02] MEDS: Warfarin Sodium 3 MG TAB PO SCH (20:30)
[2019-08-03 05:02] LABS: INR-International Normal Ratio 1.8; Prothrombin Time 20.8 SEC (12.0-14.7)
[2019-08-03 05:13] LABS: Anion Gap 10 mmol/L (10-20); BUN (Urea Nitrogen) 15 mg/dL (8.4-25.7); Calc. Creatinine Clearance 67 mL/min (70-130); Calcium 8.7 mg/dL (7.8-10.44); Carbon Dioxide 31 mmol/L (23-31); Chloride 104 mmol/L (98-107); Estimated GFR-MDRD 79; Glucose 103 mg/dL (83-110); Magnesium 2.1 mg/dL (1.6-2.6); Phosphorus 2.6 mg/dL (2.3-4.7); Potassium 4.1 mmol/L (3.5-5.1); Sodium 141 mmol/L (136-145)
[2019-08-03 05:22] LABS: Band 11 % (5-11); Hemoglobin 8.3 g/dL (14.0-18.0); Hypochromia SLIGHT = 6-15 cells (100X) (0-5/hpf); Lymphocytes 18 % (21-51); MDiff Complete? YES; Mean Corpuscular HGB CONC 30.4 g/dL (32.0-36.0); Mean Corpuscular Hemoglobin 21.9 pg (27.0-31.0); Mean Corpuscular Volume 71.8 fL (78.0-98.0); Mean Platelet Volume 8.5 fL (7.4-10.4); Metamyelocyte 4 % (0-0); Microcytosis MODERATE=15-30 cells (100X) (0-5/hpf); Monocytes 13 % (0-10); Neutrophil 54 % (42-75); Platelet Count 364 thou/uL (130-400); Platelet Morphology Comment Appears Adequate; Polychromasia SLIGHT = 2-3 cells (100X) (0-2/hpf); RBC Distribution Width 17.4 % (11.5-14.5); Red Blood Cell (RBC) Count 3.81 mill/uL (4.70-6.10); White Blood Cell (WBC) Count 20.9 thou/uL (4.8-10.8)
[2019-08-03] MEDS: Megestrol Acetate 800 MG/20 ML UDCUP PO SCH (10:23)
[2019-08-03] MEDS: Digoxin 0.125 MG TAB PO SCH (10:23)
[2019-08-03] MEDS: Ferrous Sulfate 325 MG TAB PO SCH ×3 (10:23→17:11)
[2019-08-03] MEDS: Metoprolol Tartrate 50 MG TAB PO SCH ×2 (10:23→20:26)
[2019-08-03] MEDS: Furosemide 40 MG TAB PO SCH (10:23)
--- NOTE | 2019-08-03 14:44 | PDOC.HOSPP ---
- Subjective Encounter Date: 08/03/19 Encounter Time: 09:10 Subjective: no change in his status; sitting in the chair. appears comfortable. - Objective Vital Signs & Weight: Vital Signs (12 hours) Temp Pulse Resp BP Pulse Ox 08/03/19 10:23 100 08/03/19 08:00 98.6 F 100 20 131/62 97 Weight Admit Weight 181 lb 14.102 oz Weight 180 lb 3.2 oz Most Recent Monitor Data Heart Rate from ECG 84 NIBP 149/63 NIBP BP-Mean 91 Respiration from ECG 25 SpO2 94 I&O: 08/02/19 08/03/19 08/04/19 05:59 06:59 06:59 Intake Total Output Total Balance Result Diagrams: 08/03/19 04:29 08/03/19 04:29 Hospitalist ROS - Medication Medications: Active Medications Generic Name Dose Route Start Last Admin Trade Name Freq PRN Reason Stop Dose Admin Albuterol/Ipratropium 3 ml 07/25/19 10:27 08/02/19 04:33 Duoneb NEB 3 ml [id number] PRN Administration SOB &/or Wheezing Digoxin 0.125 mg 07/27/19 09:00 08/03/19 10:23 Lanoxin PO 0.125 mg DAILY MATTY Administration Ferrous Sulfate 325 mg 07/30/19 08:00 08/03/19 10:23 Feosol PO 325 mg Q2D MATTY Administration Ferrous Sulfate 325 mg 07/30/19 12:00 08/01/19 12:00 Feosol PO Not Given Q2D MATTY Ferrous Sulfate 325 mg 07/30/19 17:00 08/01/19 19:45 Feosol PO 325 mg Q2D MATTY Administration Furosemide 40 mg 08/02/19 07:30 08/03/19 10:23 Lasix PO 40 mg DAILY-AC MATTY Administration Hydralazine HCl 10 mg 07/25/19 10:27 08/02/19 04:02 Apresoline SLOW IVP 10 mg Q4H PRN Administration SBP > 180 and HR < 70 Megestrol Acetate 800 mg 07/28/19 09:00 08/03/19 10:23 Megace PO 800 mg DAILY MATTY Administration Metoprolol Tartrate 50 mg 07/26/19 21:00 08/03/19 10:23 Lopressor PO 50 mg BID MATTY Administration Pantoprazole Sodium 40 mg 08/01/19 09:00 08/03/19 10:23 Protonix PO 40 mg DAILY MATTY Administration Sodium Chloride 10 ml 07/25/19 21:00 08/03/19 10:24 Flush - Normal Saline IVF 10 ml Q12HR MATTY Administration Warfarin Sodium 3 mg 07/31/19 17:00 08/02/19 20:30 Coumadin PO 3 mg 1700 MATTY Administration Warfarin Sodium 0.5 mg 07/31/19 17:00 08/02/19 20:30 Coumadin PO 0.5 mg 1700 MATTY Administration - Exam General Appearance: NAD Eye: PERRL, anicteric sclera ENT: normocephalic atraumatic Neck: supple Heart: RRR Respiratory: CTAB Gastrointestinal: soft, normal bowel sounds Neurological: cranial nerve grossly intact, no focal deficits Hosp A/P - Plan * Stage 4 lung cancer; serosanguinous pleural effusion * * continue to diurese - pulmonology on board * per Onc, requests to continue chemotherapy (as outpatient) * * contraction alkalosis - diuresis * neutropenic fever (resolved) Iron deficiency anemia -ferrous sulfate TID qod * Atrial fibrillation with RVR * HR well controlled * CHADVASC score 3; started warfarin per Oncology; * -minimal hemoptysis that hasn't worsened so far since restarting warfarin (07/31) * continue metoprolol and digoxin; warfarin * * disposition/PPx * pending SNF placement * full code
[2019-08-03] MEDS: Warfarin Sodium 3 MG TAB PO SCH (17:12)
[2019-08-03] MEDS: Warfarin Sodium 0.5 MG HALF.TAB PO SCH (17:12)
[2019-08-04 04:50] LABS: Band 2 % (5-11); Hemoglobin 8.4 g/dL (14.0-18.0); Hypochromia SLIGHT = 6-15 cells (100X) (0-5/hpf); Lymphocytes 6 % (21-51); MDiff Complete? YES; Mean Corpuscular HGB CONC 30.6 g/dL (32.0-36.0); Mean Corpuscular Hemoglobin 22.3 pg (27.0-31.0); Mean Platelet Volume 8.5 fL (7.4-10.4); Metamyelocyte 4 % (0-0); Monocytes 10 % (0-10); Neutrophil 78 % (42-75); Platelet Count 394 thou/uL (130-400); Platelet Morphology Comment Appears Adequate; Polychromasia SLIGHT = 2-3 cells (100X) (0-2/hpf); RBC Distribution Width 17.9 % (11.5-14.5); Red Blood Cell (RBC) Count 3.76 mill/uL (4.70-6.10); White Blood Cell (WBC) Count 16.8 thou/uL (4.8-10.8)
[2019-08-04 04:51] LABS: Phosphorus 2.7 mg/dL (2.3-4.7)
[2019-08-04 04:53] LABS: Anion Gap 12 mmol/L (10-20); BUN (Urea Nitrogen) 15 mg/dL (8.4-25.7); Calc. Creatinine Clearance 70 mL/min (70-130); Calcium 8.5 mg/dL (7.8-10.44); Carbon Dioxide 31 mmol/L (23-31); Chloride 104 mmol/L (98-107); Estimated GFR-MDRD 83; Glucose 108 mg/dL (83-110); Magnesium 2.1 mg/dL (1.6-2.6); Potassium 4.5 mmol/L (3.5-5.1); Sodium 142 mmol/L (136-145)
[2019-08-04] MEDS: Furosemide 40 MG TAB PO SCH (08:15)
[2019-08-04] MEDS: Metoprolol Tartrate 50 MG TAB PO SCH ×2 (08:15→20:29)
[2019-08-04] MEDS: Megestrol Acetate 800 MG/20 ML UDCUP PO SCH (08:15)
[2019-08-04] MEDS: Digoxin 0.125 MG TAB PO SCH (08:15)
[2019-08-04 10:01] VITALS: BMI 29.9
--- NOTE | 2019-08-04 12:57 | PDOC.HOSPP ---
- Subjective Encounter Date: 08/04/19 Encounter Time: 09:10 Subjective: more alert today, dtr at bedside, d/w them adn CM - trying to transfer today to SNF. - Objective Vital Signs & Weight: Vital Signs (12 hours) Temp Pulse Resp BP Pulse Ox 08/04/19 08:15 86 08/04/19 08:00 97.5 F L 86 18 155/67 H 96 08/04/19 07:43 95 Weight Admit Weight 181 lb 14.102 oz Weight 180 lb 3.2 oz Most Recent Monitor Data Heart Rate from ECG 84 NIBP 149/63 NIBP BP-Mean 91 Respiration from ECG 25 SpO2 94 I&O: 08/03/19 08/04/19 08/05/19 06:59 06:59 06:59 Intake Total 1810 440 Output Total 110 500 Balance 1700 -60 Result Diagrams: 08/04/19 04:12 08/04/19 04:12 Hospitalist ROS - Medication Medications: Active Medications Generic Name Dose Route Start Last Admin Trade Name Freq PRN Reason Stop Dose Admin Albuterol/Ipratropium 3 ml 07/25/19 10:27 08/02/19 04:33 Duoneb NEB 3 ml [id number] PRN Administration SOB &/or Wheezing Digoxin 0.125 mg 07/27/19 09:00 08/04/19 08:15 Lanoxin PO 0.125 mg DAILY MATTY Administration Ferrous Sulfate 325 mg 07/30/19 08:00 08/03/19 10:23 Feosol PO 325 mg Q2D MATTY Administration Ferrous Sulfate 325 mg 07/30/19 12:00 08/03/19 12:00 Feosol PO Not Given Q2D MATTY Ferrous Sulfate 325 mg 07/30/19 17:00 08/03/19 17:11 Feosol PO 325 mg Q2D MATTY Administration Furosemide 40 mg 08/02/19 07:30 08/04/19 08:15 Lasix PO 40 mg DAILY-AC MATTY Administration Hydralazine HCl 10 mg 07/25/19 10:27 08/02/19 04:02 Apresoline SLOW IVP 10 mg Q4H PRN Administration SBP > 180 and HR < 70 Megestrol Acetate 800 mg 07/28/19 09:00 08/04/19 08:15 Megace PO 800 mg DAILY MATTY Administration Metoprolol Tartrate 50 mg 07/26/19 21:00 08/04/19 08:15 Lopressor PO 50 mg BID MATTY Administration Pantoprazole Sodium 40 mg 08/01/19 09:00 08/04/19 08:15 Protonix PO 40 mg DAILY MATTY Administration Sodium Chloride 10 ml 07/25/19 21:00 08/04/19 08:16 Flush - Normal Saline IVF 10 ml Q12HR MATTY Administration Warfarin Sodium 3 mg 07/31/19 17:00 08/03/19 17:12 Coumadin PO 3 mg 1700 MATTY Administration Warfarin Sodium 0.5 mg 07/31/19 17:00 08/03/19 17:12 Coumadin PO 0.5 mg 1700 MATTY Administration - Exam General Appearance: NAD, awake alert Eye: PERRL ENT: normocephalic atraumatic Neck: no carotid bruit Heart: RRR, normal peripheral pulses Respiratory: CTAB, normal chest expansion Hosp A/P - Plan * Stage 4 lung cancer; serosanguinous pleural effusion * * continue to diurese - pulmonology on board * per Onc, requests to continue chemotherapy (as outpatient) * * contraction alkalosis - diuresis * neutropenic fever (resolved) Iron deficiency anemia -ferrous sulfate TID qod * Atrial fibrillation with RVR * HR well controlled * CHADVASC score 3; started warfarin per Oncology; * -minimal hemoptysis that hasn't worsened so far since restarting warfarin (07/31) * continue metoprolol and digoxin; warfarin * * disposition/PPx * pending SNF placement * full code d/w CM and the family - Hopefully will have bed available today.
[2019-08-04] MEDS ORDERED: Warfarin Sodium 1 MG TAB PO SCH (17:00)
[2019-08-04] MEDS: Warfarin Sodium 3 MG TAB PO SCH (17:19)
[2019-08-04] MEDS: Warfarin Sodium 0.5 MG HALF.TAB PO SCH (17:21)
[2019-08-05] MEDS: Metoprolol Tartrate 50 MG TAB PO SCH ×2 (08:21→21:22)
[2019-08-05] MEDS: Furosemide 40 MG TAB PO SCH (08:21)
[2019-08-05] MEDS: Ferrous Sulfate 325 MG TAB PO SCH ×3 (08:21→18:41)
[2019-08-05] MEDS: Megestrol Acetate 800 MG/20 ML UDCUP PO SCH (08:21)
[2019-08-05] MEDS: Digoxin 0.125 MG TAB PO SCH (08:21)
--- NOTE | 2019-08-05 11:30 | PDOC.HOSPP ---
- Subjective Encounter Date: 08/05/19 Encounter Time: 08:45 Subjective: lying inbed; no acute evnets o/n. - Objective Vital Signs & Weight: Vital Signs (12 hours) Temp Pulse Resp BP Pulse Ox 08/05/19 08:21 94 08/05/19 08:00 98.3 F 80 18 150/87 H 93 L 08/05/19 03:58 94 L 08/05/19 03:54 94 24 H 95 Weight Admit Weight 181 lb 14.102 oz Weight 180 lb 3.2 oz Most Recent Monitor Data Heart Rate from ECG 84 NIBP 149/63 NIBP BP-Mean 91 Respiration from ECG 25 SpO2 94 I&O: 08/04/19 08/05/19 08/06/19 06:59 06:59 06:59 Intake Total 1810 1420 275 Output Total 110 1140 Balance 1700 280 275 Result Diagrams: 08/04/19 04:12 08/04/19 04:12 Hospitalist ROS - Medication Medications: Active Medications Generic Name Dose Route Start Last Admin Trade Name Freq PRN Reason Stop Dose Admin Albuterol/Ipratropium 3 ml 07/25/19 10:27 08/05/19 03:54 Duoneb NEB 3 ml [id number] PRN Administration SOB &/or Wheezing Digoxin 0.125 mg 07/27/19 09:00 08/05/19 08:21 Lanoxin PO 0.125 mg DAILY MATTY Administration Ferrous Sulfate 325 mg 07/30/19 08:00 08/05/19 08:21 Feosol PO 325 mg Q2D MATTY Administration Ferrous Sulfate 325 mg 07/30/19 12:00 08/03/19 12:00 Feosol PO Not Given Q2D MATTY Ferrous Sulfate 325 mg 07/30/19 17:00 08/03/19 17:11 Feosol PO 325 mg Q2D MATTY Administration Furosemide 40 mg 08/02/19 07:30 08/05/19 08:21 Lasix PO 40 mg DAILY-AC MATTY Administration Hydralazine HCl 10 mg 07/25/19 10:27 08/02/19 04:02 Apresoline SLOW IVP 10 mg Q4H PRN Administration SBP > 180 and HR < 70 Megestrol Acetate 800 mg 07/28/19 09:00 08/05/19 08:21 Megace PO 800 mg DAILY MATTY Administration Metoprolol Tartrate 50 mg 07/26/19 21:00 08/05/19 08:21 Lopressor PO 50 mg BID MATTY Administration Pantoprazole Sodium 40 mg 08/01/19 09:00 08/05/19 08:21 Protonix PO 40 mg DAILY MATTY Administration Sodium Chloride 10 ml 07/25/19 21:00 08/05/19 08:21 Flush - Normal Saline IVF 10 ml Q12HR MATTY Administration - Exam General Appearance: NAD, awake alert Eye: PERRL ENT: normocephalic atraumatic Neck: supple Heart: RRR Respiratory: CTAB Gastrointestinal: soft Hosp A/P - Plan * Stage 4 lung cancer; serosanguinous pleural effusion * * continue to diurese - pulmonology on board * per Onc, requests to continue chemotherapy (as outpatient) * * contraction alkalosis - diuresis * neutropenic fever (resolved) Iron deficiency anemia -ferrous sulfate TID qod * Atrial fibrillation with RVR * HR well controlled * CHADVASC score 3; started warfarin per Oncology; * -minimal hemoptysis that hasn't worsened so far since restarting warfarin (07/31) * continue metoprolol and digoxin; * daily inr * * disposition/PPx * pending SNF placement * full code d/w CM and the family - pending placement.
[2019-08-05] MEDS ORDERED: Warfarin Sodium 3 MG TAB PO SCH (17:00)
[2019-08-05] MEDS ORDERED: Warfarin Sodium 0.5 MG HALF.TAB PO SCH (17:00)
[2019-08-05] MEDS ORDERED: Warfarin Sodium 1 MG TAB PO SCH (18:15)
[2019-08-05] MEDS: guaiFENesin ER 600 MG TAB PO SCH (21:22)
[2019-08-06] MEDS: guaiFENesin ER 600 MG TAB PO SCH ×2 (08:52→21:32)
[2019-08-06] MEDS: Furosemide 40 MG TAB PO SCH (08:52)
[2019-08-06] MEDS: Ferrous Sulfate 325 MG TAB PO SCH (08:52)
[2019-08-06] MEDS: Megestrol Acetate 800 MG/20 ML UDCUP PO SCH (08:52)
[2019-08-06] MEDS: Metoprolol Tartrate 50 MG TAB PO SCH ×2 (08:52→21:32)
[2019-08-06] MEDS: Digoxin 0.125 MG TAB PO SCH (08:52)
--- NOTE | 2019-08-06 11:18 | PDOC.HOSPP ---
- Subjective Encounter Date: 08/06/19 Encounter Time: 08:50 Subjective: no change in his condn., Lying in bed, awake and alert; refused his lab y'day and he is on coumadin and no way of knowing his latest INR. - Objective Vital Signs & Weight: Vital Signs (12 hours) Temp Pulse Resp BP Pulse Ox 08/06/19 08:52 72 08/06/19 08:04 93 L 08/06/19 07:57 98.8 F 72 20 164/70 H 93 L Weight Admit Weight 181 lb 14.102 oz Weight 180 lb 3.2 oz Most Recent Monitor Data Heart Rate from ECG 84 NIBP 149/63 NIBP BP-Mean 91 Respiration from ECG 25 SpO2 94 I&O: 08/05/19 08/06/19 08/07/19 06:59 06:59 06:59 Intake Total 1420 1410 Output Total 1140 400 Balance 280 1010 Result Diagrams: 08/04/19 04:12 08/04/19 04:12 Hospitalist ROS - Medication Medications: Active Medications Generic Name Dose Route Start Last Admin Trade Name Freq PRN Reason Stop Dose Admin Albuterol/Ipratropium 3 ml 07/25/19 10:27 08/05/19 19:57 Duoneb NEB 3 ml [id number] PRN Administration SOB &/or Wheezing Digoxin 0.125 mg 07/27/19 09:00 08/06/19 08:52 Lanoxin PO 0.125 mg DAILY MATTY Administration Ferrous Sulfate 325 mg 07/30/19 08:00 08/06/19 08:52 Feosol PO 325 mg Q2D MATTY Administration Ferrous Sulfate 325 mg 07/30/19 12:00 08/05/19 12:18 Feosol PO 325 mg Q2D MATTY Administration Ferrous Sulfate 325 mg 07/30/19 17:00 08/05/19 18:41 Feosol PO 325 mg Q2D MATTY Administration Furosemide 40 mg 08/02/19 07:30 08/06/19 08:52 Lasix PO 40 mg DAILY-AC MATTY Administration Guaifenesin 1,200 mg 08/05/19 21:00 08/06/19 08:52 Mucinex PO 1,200 mg Q12HR MATTY Administration Hydralazine HCl 10 mg 07/25/19 10:27 08/02/19 04:02 Apresoline SLOW IVP 10 mg Q4H PRN Administration SBP > 180 and HR < 70 Megestrol Acetate 800 mg 07/28/19 09:00 08/06/19 08:52 Megace PO 800 mg DAILY MATTY Administration Metoprolol Tartrate 50 mg 07/26/19 21:00 08/06/19 08:52 Lopressor PO 50 mg BID MATTY Administration Pantoprazole Sodium 40 mg 08/01/19 09:00 08/06/19 08:52 Protonix PO 40 mg DAILY MATTY Administration Sodium Chloride 10 ml 07/25/19 21:00 08/06/19 08:52 Flush - Normal Saline IVF 10 ml Q12HR MATTY Administration - Exam General Appearance: NAD, awake alert Eye: PERRL ENT: normocephalic atraumatic Neck: supple Heart: RRR Respiratory: CTAB, normal chest expansion Gastrointestinal: soft, normal bowel sounds Hosp A/P - Plan * Stage 4 lung cancer; serosanguinous pleural effusion * * continue to diurese - pulmonology on board * per Onc, requests to continue chemotherapy (as outpatient) * * contraction alkalosis - diuresis * neutropenic fever (resolved) Iron deficiency anemia -ferrous sulfate TID qod * Atrial fibrillation with RVR * HR well controlled * CHADVASC score 3; started warfarin per Oncology; * -minimal hemoptysis that hasn't worsened so far since restarting warfarin (07/31) * continue metoprolol and digoxin; * daily inr * * disposition/PPx * pending SNF placement * full code d/w CM and the family - pending placement. Refused his lab y'day and he is on coumadin and no way of knowing his latest INR.
[2019-08-06] MEDS ORDERED: Warfarin Sodium 1.5 MG TAB PO SCH (17:00)
[2019-08-06] MEDS ORDERED: Warfarin Sodium 2 MG TAB PO SCH (17:00)
[2019-08-06 17:02] LABS: INR-International Normal Ratio 3.8; Prothrombin Time 37.2 SEC (12.0-14.7)
[2019-08-06] MEDS ORDERED: Warfarin Sodium 3 MG TAB PO SCH (17:15)
[2019-08-06 17:22] LABS: Anion Gap 10 mmol/L (10-20); BUN (Urea Nitrogen) 12 mg/dL (8.4-25.7); Calc. Creatinine Clearance 70 mL/min (70-130); Calcium 8.9 mg/dL (7.8-10.44); Carbon Dioxide 32 mmol/L (23-31); Chloride 102 mmol/L (98-107); Estimated GFR-MDRD 84; Glucose 148 mg/dL (83-110); Hemoglobin 8.5 g/dL (14.0-18.0); Magnesium 1.9 mg/dL (1.6-2.6); Mean Corpuscular HGB CONC 30.2 g/dL (32.0-36.0); Mean Corpuscular Volume 72.9 fL (78.0-98.0); Mean Platelet Volume 7.9 fL (7.4-10.4); Platelet Count 636 thou/uL (130-400); Potassium 4.3 mmol/L (3.5-5.1); RBC Distribution Width 18.4 % (11.5-14.5); Red Blood Cell (RBC) Count 3.87 mill/uL (4.70-6.10); Sodium 140 mmol/L (136-145); White Blood Cell (WBC) Count 17.1 thou/uL (4.8-10.8)
[2019-08-06 17:23] LABS: Anisocytosis SLIGHT = 6-15 cells (100X) (0-5/hpf); Band 4 % (5-11); Eosinophils 1 % (0-10); Hypochromia SLIGHT = 6-15 cells (100X) (0-5/hpf); Lymphocytes 14 % (21-51); MDiff Complete? YES; Microcytosis SLIGHT = 6-15 cells (100X) (0-5/hpf); Monocytes 5 % (0-10); Neutrophil 72 % (42-75); Nucleated RBC 1 % (0); Ovalocytes SLIGHT = 2-5 cells (100X) (0-1/hpf); Platelet Morphology Comment Appears Adequate; Poikilocytosis SLIGHT = 6-15 cells (100X) (0-5/hpf); Polychromasia MODERATE = 3-4 cells (100X) (0-2/hpf); Schistocytes SLIGHT = 2-5 cells (100X) (0-1/hpf)
[2019-08-07 04:35] LABS: Prothrombin Time 40.5 SEC (12.0-14.7)
[2019-08-07 04:41] LABS: INR-International Normal Ratio 4.3
[2019-08-07 04:42] LABS: #Basophils 0.2 thou/uL (0.0-0.2); #Eosinphils 0.2 thou/uL (0.0-0.7); #Lymphocytes 1.7 thou/uL (1.20-3.40); #Monocytes 1.9 thou/uL (0.11-0.59); #Neutrophils 13.2 thou/uL (1.40-6.50); %Basophils 1.4 % (0.0-1.0); %Eosinophils 1.3 % (0.0-10.0); %Lymphocytes 9.9 % (21.0-51.0); %Neutrophils 76.5 % (42.0-75.0); Hemoglobin 8.5 g/dL (14.0-18.0); Mean Corpuscular Hemoglobin 22.2 pg (27.0-31.0); Platelet Count 656 thou/uL (130-400); RBC Distribution Width 18.5 % (11.5-14.5); Red Blood Cell (RBC) Count 3.81 mill/uL (4.70-6.10); White Blood Cell (WBC) Count 17.3 thou/uL (4.8-10.8)
[2019-08-07 04:58] LABS: Anion Gap 11 mmol/L (10-20); BUN (Urea Nitrogen) 11 mg/dL (8.4-25.7); Calc. Creatinine Clearance 75 mL/min (70-130); Calcium 8.9 mg/dL (7.8-10.44); Carbon Dioxide 35 mmol/L (23-31); Chloride 101 mmol/L (98-107); Estimated GFR-MDRD Greater than 90; Glucose 100 mg/dL (83-110); Magnesium 1.9 mg/dL (1.6-2.6); Potassium 4.8 mmol/L (3.5-5.1); Sodium 142 mmol/L (136-145)
[2019-08-07 05:00] LABS: Phosphorus 3.1 mg/dL (2.3-4.7)
[2019-08-07 08:15] VITALS: BP 162/72; TEMP 98.4
[2019-08-07] MEDS: Digoxin 0.125 MG TAB PO SCH (09:55)
[2019-08-07] MEDS: Furosemide 40 MG TAB PO SCH (09:55)
[2019-08-07] MEDS: Metoprolol Tartrate 50 MG TAB PO SCH (09:55)
[2019-08-07] MEDS: Megestrol Acetate 800 MG/20 ML UDCUP PO SCH (09:56)
[2019-08-07] MEDS: guaiFENesin ER 600 MG TAB PO SCH (09:56)
[2019-08-07] MEDS: Ferrous Sulfate 325 MG TAB PO SCH (12:27)
[2019-08-07] MEDS ORDERED: Warfarin Sodium 3 MG TAB PO SCH (17:00)
[2019-08-07 17:08] LABS: INR-International Normal Ratio 3.3; Prothrombin Time 33.4 SEC (12.0-14.7)
--- NOTE | 2019-08-08 01:17 | DIS ---
DATE OF ADMISSION: 07/25/2019 DATE OF DISCHARGE: 08/07/2019 DISCHARGE DIAGNOSES: 1. Acute on chronic respiratory failure with hypoxemia. 2. Neutropenic fever. 3. Coronary artery disease. 4. Transaminitis due to passive congestion. 5. Stage IV lung cancer with pleural effusion, being diuresed. Plan for chemotherapy as outpatient. 6. Contraction alkalosis secondary to diuresis. 7. Iron deficiency anemia. 8. Atrial fibrillation with RVR, rate controlled. Started on warfarin. DISCHARGE MEDICATIONS: 1. Coumadin 2 mg daily provided INR has been checked on a daily basis. 2. Lasix changed from 40 mg twice a day to once a day dose. 3. Lipitor 40 mg at bedtime. 4. Aspirin 81 mg daily. 5. Amlodipine 10 mg daily. 6. Digoxin 0.125 mg daily. 7. Lisinopril 5 mg daily. 8. Albuterol as needed q.4 hours. 9. Levothyroxine 75 mcg daily. 10. Loratadine 10 mg daily. 11. Metoprolol-XL 200 mg daily. 12. Omeprazole 20 mg two tablets. His home dose regimen is 40 mg twice a day. I will change that to 40 mg once a day. PHYSICAL EXAMINATION: VITAL SIGNS: On the day of discharge, his temperature is 98.4, pulse is 76, blood pressure 162/72. He is saturating 94% with nasal cannula. GENERAL: The patient is alert, oriented. He is lying in the bed comfortably. CARDIOVASCULAR: Regular rate and rhythm without murmurs, rubs, or gallops. LUNGS: Clear to auscultation bilaterally without wheezing, rales, or rhonchi. ABDOMEN: Soft, nontender, and nondistended. Good bowel sounds. HOSPITAL COURSE: Please refer to history and physical and daily progress note for more details. Briefly, this is an 89-year-old male admitted on July 25 after being found unresponsive at home. He had acute on chronic respiratory failure with hypoxemia. Over the course of the time, the patient improved well. His last labs were significant for white count of 17.3, initial was 29.7. He also had anemia that was 8, hemoglobin 8.5. On the day of discharge, he had thrombocytosis with platelet count of 656,000. His chemistry panel was pretty unremarkable including creatinine. His creatinine is 0.8. However, he had INR of 4.3, even though his Coumadin was on hold. The patient will be going to the swing bed. The physician at [facility] has been informed that INR is 4.3 and the patient is not taking Coumadin for the last 2 days. His INR has to be checked before initiating Coumadin. His regimen was 3.5, however, I reduced the dose to 2 mg. This needs to be monitored before restarting his Coumadin. The patient will be starting his chemo for stage IV lung cancer as an outpatient. Currently, he is hemodynamically stable. We will be transferring to the swing [facility] possibly today. DISCHARGE INSTRUCTIONS: 1. Activity with supervision only. 2. Healthy heart diet. 3. Follow up with the physician at [facility] for further care. 4. INR has to be checked by tomorrow. Please do not start the Coumadin until INR is below 3.0. Discharge time took over 30 minutes. Job ID: [id number] MTDD
--- NOTE | 2019-08-09 09:01 | PQF ---
FARTUN MENDEZ BREEZY LANDEROS [id number] CLINICAL DOCUMENTATION CLARIFICATION FORM: POST DISCHARGE Addendum to original discharge summary date: ____ Late entry note date: __ DATE: 08/09/2019 ATTN: BREEZY LANDEROS Please exercise your independent, professional judgment in responding to the clarification form. Clinical indicators are provided on the bottom of this form for your review Please check appropriate box(s): [ ] Neutropenia due to Pneumonia [ x] Neutropenia due to Lung cancer [ ] Neutropenia due to unspecified cause [x ] Other diagnosis _chemo as well [ ] Unable to determine For continuity of documentation, please document condition throughout progress notes and discharge summary. Thank You. CLINICAL INDICATORS - SIGNS / SYMPTOMS / LABS - Neutropenic fever- DS, 07/25, BREEZY LANDEROS - stage IV lung cancer with pleural effusion- DS, 07/25, BREEZY LANDEROS - possible sources pneumonia, [facility] PN, 07/29, Roxann Posadas MD - currently neutrophilic , may be a result of malignancy- Hospital PN, 07/29, Roxann Psoadas MD RISK FACTORS - Thrombocytosis- DS, 07/25, BREEZY LANDEROS - Healthcare-associated pneumonia, resolving-Progress note, 07/31, Jacquelin Pryor MD TREATMENTS: - Transfused pheresis plts- -Blood bank - Cefepime.IV- JUL, 07/25 - Tylenol.IV- MAR, 07/25 (This form is maintained as a part of the permanent medical record) 2014 [employer] All Rights Reserved [email or web address]
== END 2019-08-07 17:25 | DRG 808 ==
LOC: ERS 03:45 → ERHOLD 05:39 → CCU 09:42 → IMCU/EMU 07-27 18:51 → ONC 07-31 20:06 → UNDODISIN 08-07 14:20
PROVIDERS: ADMIT Internal Medicine; ATTEND Internal Medicine
PROC: 0W9930Z Drainage of Right Pleural Cavity with Drainage Device, Percutaneous Approach (ICD-10-PCS; principal; 2019-07-25)
PROC: BB4BZZZ Ultrasonography of Pleura (ICD-10-PCS; 2019-07-25)
DX: D70.1 Agranulocytosis secondary to cancer chemotherapy (principal); J18.9 Pneumonia, unspecified organism; J96.21 Acute and chronic respiratory failure with hypoxia; I50.33 Acute on chronic diastolic (congestive) heart failure; C34.90 Malignant neoplasm of unspecified part of unspecified bronchus or lung; J91.0 Malignant pleural effusion; E87.3 Alkalosis; I13.0 Hypertensive heart and chronic kidney disease with heart failure and stage 1 through stage 4 chronic kidney disease, or unspecified chronic kidney disease; T45.1X5A Adverse effect of antineoplastic and immunosuppressive drugs, initial encounter; I25.10 Atherosclerotic heart disease of native coronary artery without angina pectoris; R74.0 Nonspecific elevation of levels of transaminase and lactic acid dehydrogenase [LDH]; E03.9 Hypothyroidism, unspecified; E78.5 Hyperlipidemia, unspecified; E78.00 Pure hypercholesterolemia, unspecified; D47.3 Essential (hemorrhagic) thrombocythemia; W07.XXXA Fall from chair, initial encounter; N18.3 Chronic kidney disease, stage 3 (moderate); T50.2X5A Adverse effect of carbonic-anhydrase inhibitors, benzothiadiazides and other diuretics, initial encounter; D50.9 Iron deficiency anemia, unspecified; I48.91 Unspecified atrial fibrillation; Z79.01 Long term (current) use of anticoagulants; I25.2 Old myocardial infarction; Z90.49 Acquired absence of other specified parts of digestive tract; Z87.891 Personal history of nicotine dependence; Z95.2 Presence of prosthetic heart valve; Z98.42 Cataract extraction status, left eye; Z98.41 Cataract extraction status, right eye; Z95.1 Presence of aortocoronary bypass graft
CPT/HCPCS: 36415; 36430; 71045; 80048; 80053; 80162; 80202; 82553; 82805; 82945; 83605; 83615; 83735; 83880; 84100; 84157; 84484; 85025; 85027; 85060; 85610; 86850; 86900; 86901; 87040; 87070; 87116; 87205; 87206; 87324; 87449; 87804; 88112; 88305; 89051; 94640; 94644; 94660; 96361; 96365; 96366; 96367; 96374; J0360; J0692; J1120; J1940; J3370; J3475; J3490; J7050; J7611; J7620; P9035